=== PATIENT | male | born 1950 | race Caucasian/White ===

== ENCOUNTER 2019-10-15 14:00 | Inpatient (IN) | payer MEDICARE, SELFPAY ==
[2019-10-15 14:09] VITALS: BP 132/76; PULSE 80; RESP 16; TEMP 39.3; O2SAT 97; BMI 30.4
--- NOTE | 2019-10-15 14:50 | ECG_ITS ---
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 Measurements Intervals [place] Rate: 94 P: 52 SC: 162 QRS: 21 QRSD: 100 T: 34 QT: 334 QTc: 418 Interpretive Statements SINUS RHYTHM WITH OCCASIONAL VENTRICULAR PREMATURE COMPLEXES No previous ECG available for comparison Electronically Signed On 10-15-2019 19:33:24 CDT by Derek Casillas M.D. [email or web address]
--- NOTE | 2019-10-15 14:50 | XRR_ITS ---
PROCEDURE INFORMATION: Exam: XR Chest, 1 View Exam date and time: 10/15/2019 3:26 PM Age: 68 years old Clinical indication: Chest pain; Type not specified TECHNIQUE: Imaging protocol: XR of the chest Views: 1 view. COMPARISON: No relevant prior studies available. FINDINGS: Lungs: Unremarkable. No consolidation. Pleural space: Unremarkable. No pleural effusion. No pneumothorax. Heart/Mediastinum: Unremarkable. No cardiomegaly. Bones/joints: Unremarkable. XR/XR chest 1V portable [id number] IMPRESSION: No acute findings.
[2019-10-15 15:12] LABS: Basophils % 0.2 %; Hemoglobin 12.9 g/dL (11.7-16.6); Lymphocytes # 0.2 10^3/uL (0.8-4.8); Lymphocytes % 4.1 %; Mean Corpuscular HGB Conc 33.9 g/dL (30.0-36.0); Mean Corpuscular Hemoglobin 31.5 pg (28.0-34.0); Mean Corpuscular Volume 92.9 fL (80-94); Monocytes # 0.1 10^3/uL (0.2-0.9); Neutrophils # 4.6 10^3/uL (1.8-7.7); Neutrophils % 93.5 %; Nucleated Red Blood Cells % 0 %; Platelet Count 150 10^3/cmm (130-400); Red Blood Count 4.09 10^6/uL (4.1-5.3); White Blood Count 4.9 10^3/uL (4.0-10.0)
[2019-10-15] MEDS: acetaminophen 325 mg Tablet 650 MG PO (15:24)
[2019-10-15 15:29] LABS: Alanine Aminotransferase 45 U/L (0-41); Albumin Level 4.5 g/dL (3.5-5.2); Alkaline Phosphatase 53 IU/L (40-130); Anion Gap 19.1 (5-19); Aspartate Amino Transferase 35 U/L (0-40); Blood Urea Nitrogen 25 mg/dL (8-23); Calcium 9.5 mg/dL (8.5-10.5); Carbon Dioxide 22 mmol/L (22-29); Chloride 99 mmol/L (98-107); Creatine Phosphokinase 240 U/L (39-308); Globulin 2.6 g/dL (1.3-4.6); Glomerular Filtration Rate 46.8 mL/min (90-130); Glucose 141 mg/dL (65-115); Lipase 22 U/L (13-60); Osmolality Calculated 281 mOsm/kg (285-295); Potassium 4.1 mmol/L (3.5-5.1); Sodium 136 mmol/L (136-145); Total Bilirubin 0.8 mg/dL (0.15-1.2); Total Protein 7.1 g/dL (6.6-8.7)
[2019-10-15 15:31] LABS: Troponin(5th) Baseline 11 ng/L (0-15)
[2019-10-15 15:35] LABS: D Dimer 1.88 ug/mIFEU (0-0.59)
[2019-10-15] MEDS: sodium chloride 0.9% 1,000 ML 999 ML IV ×2 (15:42→23:28)
--- NOTE | 2019-10-15 16:50 | ECG_ITS ---
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 Measurements Intervals [place] Rate: 54 P: 44 MN: 165 QRS: 20 QRSD: 102 T: 22 QT: 417 QTc: 395 Interpretive Statements SINUS BRADYCARDIA Compared to ECG 10/15/2019 14:06:01 Sinus rhythm no longer present Ventricular premature complex(es) no longer present Electronically Signed On 10-15-2019 19:34:19 CDT by Derek Casillas M.D. [id number]
--- NOTE | 2019-10-15 17:09 | CTR_ITS ---
PROCEDURE INFORMATION: Exam: CT Angiography Chest With Contrast Exam date and time: 10/15/2019 5:30 PM Age: 68 years old Clinical indication: Shortness of breath and other: Over heated; Prior surgery; Surgery type: Stents; Additional info: Fever, SOB TECHNIQUE: Imaging protocol: Computed tomographic angiography of the chest with intravenous contrast. 3D rendering: MIP and/or 3D reconstructed images were created by the technologist. Radiation optimization: All CT scans at this facility use at least one of these dose optimization techniques: automated exposure control; mA and/or kV adjustment per patient size (includes targeted exams where dose is matched to clinical indication); or iterative reconstruction. Contrast material: VISI 320; Contrast volume: 95 ml; Contrast route: INTRAVENOUS (IV); COMPARISON: CR XR chest 1V portable [id number] 10/15/2019 3:13 PM RADIATION DOSE METRICS: Total DLP (mGy-cm): 629.79 FINDINGS: Pulmonary arteries: Normal. No pulmonary emboli. Aorta: No aortic aneurysm. No aortic dissection. Other veins: Small amount of air within periphery of left hepatic lobe, possibly within distal portal vein branches (series 2, axial image 385 [address] of abdomen and pelvis recommended for further evaluation. Lungs: Unremarkable. No consolidation. No masses. Pleural space: Unremarkable. No pneumothorax. No pleural effusion. Heart: Unremarkable. No cardiomegaly. No pericardial effusion. Lymph nodes: Unremarkable. No enlarged lymph nodes. Liver: Partially imaged 5-6 cm lobulated solid mass in or along undersurface of left hepatic lobe worrisome for primary or secondary malignancy (series 2, axial image 486 through 561). Bones/joints: Unremarkable. No acute fracture. Soft tissues: Unremarkable. CT/CT angio chest [facility] [id number] IMPRESSION: 1.) No acute process evident in the chest. 2.) Partially imaged 5-6 cm lobulated solid mass in or along undersurface of left hepatic lobe worrisome for primary or secondary malignancy (series 2, axial image 486 through 561). 3.) Small amount of air within periphery of left hepatic lobe, possibly within distal portal vein branches (series 2, axial image [address] of abdomen and pelvis recommended for further evaluation. Radiation Dose CTDIVOL = (mGy): DLP = 629.79 (mGy-cm)
[2019-10-15 17:25] LABS: Troponin 5 2HR 9.65 ng/L (0-15)
[2019-10-15 17:35] LABS: Troponin 5 2HR Delta -1.35 ABS# (0-10)
[2019-10-15] MEDS: iodixanol 320 mg/mL 100mL Btl IV (17:47)
--- NOTE | 2019-10-15 18:43 | W.ED.CHESTPA ---
HPI - Chest Pain General: Chief Complaint: Chest Pain Stated Complaint: cp Time Seen by Provider: 10/15/19 14:34 Source: patient and family Mode of arrival: ambulatory Limitations: no limitations History of Present Illness: HPI narrative: Patient presents to the emergency department because he thinks he may have had a heat stroke. Patient states that they have been moving houses and he has been working outside for the last few days. About 2 days ago he started to have some nausea and gradually worsened until he felt really sick today. He has been having some chills but he has not checked his temperature to see if he has a fever. He also developed some chest pain. Because he felt sick he came to the emergency department for evaluation. On arrival he had a fever of about 102.7 ?F He felt very sick before he came to the hospital but when I evaluated him he said the chest pain had resolved spontaneously. complaint: chest pain Associated symptoms: Reports fever(s) and nausea; Deny dyspnea or palpitations Review of Systems General: Reports: 10 or more systems reviewed and unremarkable except in HPI and below Const: Reports: fever(s), chills, body aches and malaise Eyes: Denies: change in vision or blurry vision ENMT: Denies: throat pain, enlarged tonsils, odynophagia, hoarseness, mouth pain or swelling of lips/tongue Card: Reports: chest pain; Denies: palpitations, irregular heart rhythm, edema or swelling of feet/ankles Resp: Denies: dyspnea, productive cough or non-productive cough GI: Reports: nausea : Denies: flank pain, dysuria, urinary frequency, urinary urgency or urinary hesitancy Musc: Denies: neck pain, back pain or extremity swelling Skin/Breast: Denies: rash, pruritus or erythema Neuro: Denies: headache(s), numbness in extremities or weakness in extremities Endo: Denies: polyuria, polydipsia or tired all the time PFSH ED PFSH: Medical History Abnormal colonoscopy Aortic valve stenosis Mild aortic stenosis Cervical radiculopathy due to degenerative joint disease of spine Coronary artery disease Dyslipidemia Gout Heatstroke Hypertension Nicotine dependence Rectal bleeding Sinus bradycardia Syncope Surgical History H/O cardiac catheterization Dimension of right coronary artery 2007 H/O hemorrhoidectomy Family History Denies family history of Diabetes Family history of premature coronary artery disease Social History Smoking and tobacco status: current every day smoker cigarettes [ Other cigarette details: [id number] smoking history ] Alcohol intake: never Substance/Drug Use: never Household members: spouse Housing: House Physical Exam Const: COMMON NORMALS: no acute distress, average body habitus, patient oriented x3, no limitations, healthy appearing, alert and well nourished HENMT: COMMON NORMALS: normocephalic, atraumatic and moist oral mucous membranes HEAD & SCALP: normocephalic and atraumatic Neck/C-Spine: COMMON NORMALS: no meningeal signs and no JVD Resp: COMMON NORMALS: normal respiratory effort, No retractions, No use of accessory muscles, clear to auscultation bilaterally and percussion normal AUSCULTATION: clear to auscultation bilaterally PERCUSSION: percussion normal Cardio: COMMON NORMALS: no JVD, regular rate, regular rhythm, S1 normal heart sound present, S2 normal heart sound present, No gallops present (Cardio), No clicks present (Cardio), No murmurs present (Cardio), No rub (Cardio) and Peripheral pulses 2+ throughout RATE: regular rate RHYTHM: regular rhythm HEART SOUNDS: S1 normal heart sound present and S2 normal heart sound present PERIPHERAL PULSES: Peripheral pulses 2+ throughout GI: COMMON NORMALS: Normal to inspection, nondistended, normoactive bowel sounds present, Soft to palpation, non-tender, No hepatosplenomegaly present, no masses and no bruits PALPATION: Yes Soft to palpation and Yes No hepatosplenomegaly present : COMMON NORMALS: Yes no CVA tenderness BLADDER/KIDNEY EXAM: Yes no CVA tenderness Back/Pelvis: COMMON NORMALS: no CVA tenderness Extremity: COMMON NORMALS: normal to inspection, full ROM, capillary refill normal, no calf tenderness and no pedal edema Neuro: COMMON NORMALS: patient oriented x3 SENSORIUM/ORIENTATION: Yes alert MENINGEAL SIGNS: Yes no meningeal signs Skin: COMMON NORMALS: no rashes or lesions noted, no wounds, turgor normal, no jaundice, no petechiae and no mottling GENERAL SKIN EXAM: no rashes or lesions noted and turgor normal Course Reevaluation(s): Reevaluation #1: Discussed his lab and imaging findings with him. Labs currently unremarkable, CTA of his chest negative for acute chest findings, however there are concerns for a liver mass which could be possibly malignant. I therefore discussed obtaining a CT scan of his abdomen and pelvis and he was in agreement with doing it today. He states he feels so much better since he got the IV fluids. Time: 18:43 Consultations: Consultation #1: Discussed patient with Dr. Flores, , hospitalist he kindly accepted the patient to his service Time: 20:05 Consultation #2: Dr. Orantes, general surgeon. Patient does not have any illness that needs surgical intervention. He needs to be managed medically Time: 20:20 Vital Signs: Vital signs: Vital Signs Temperature 102.7 F H 10/15/19 14:09 Pulse Rate 80 10/15/19 14:09 Respiratory Rate 16 10/15/19 14:09 Blood Pressure 132/76 10/15/19 14:09 Pulse Oximetry 97 10/15/19 14:09 MDM - Chest Pain MDM Narrative: Medical decision making narrative: 68-year-old gentleman who presents to the emergency department with complaints that he may have had a heat stroke. Evaluation in the emergency department shows he has significantly elevated d-dimer, negative cardiac work-up, but has signs of diverticulitis and possible mesenteric vein thrombophlebitis. He also has a large liver mass. Patient is admitted to the hospital for further evaluation and work-up. His symptoms are worrisome and do not all fit into one particular profile. Therefore needs further work-up. Medical Records: Attestation: I reviewed the patient's medical records. Lab Data: Attestation: I reviewed the patient's lab results. Labs: Lab Results 10/15/19 10/15/19 10/15/19 Range/Units 15:00 15:00 15:00 WBC 4.9 (4.0-10.0) 10^3/ uL RBC 4.09 L (4.1-5.3) 10^6/u L Hgb 12.9 (11.7-16.6) g/dL Hct 38.0 L (42.0-52.0) % MCV 92.9 (80-94) fL MCH 31.5 (28.0-34.0) pg MCHC 33.9 (30.0-36.0) g/dL RDW 12.0 L (12.1-15.1) % Plt Count 150 (130-400) 10^3/c mm MPV 10.0 (7.4-10.4) fL Neut % (Auto) 93.5 % Lymph % (Auto) 4.1 % [place] % (Auto) 2.0 % Eos % (Auto) 0.0 % Baso % (Auto) 0.2 % Neut # (Auto) 4.6 (1.8-7.7) 10^3/u L Lymph # (Auto) 0.2 L (0.8-4.8) 10^3/u L [place] # (Auto) 0.1 L (0.2-0.9) 10^3/u L Eos # (Auto) 0.0 (0.0-0.8) 10^3/u L Baso # (Auto) 0.0 (0.0-0.1) 10^3/u L Nucleated RBC % (a uto) 0 % Nucleated RBCs # 0.0 /100WBC D-Dimer 1.88 H (0-0.59) ug/mIFE U Sodium 136 (136-145) mmol/L Potassium 4.1 (3.5-5.1) mmol/L Chloride 99 (98-107) mmol/L Carbon Dioxide 22 (22-29) mmol/L Anion Gap 19.1 H (5-19) BUN 25 H (8-23) mg/dL Creatinine 1.5 H (0.7-1.2) mg/dL GFR Calculation 46.8 L (90-130) mL/min Glucose 141 H (65-115) mg/dL Calculated Osmolal ity 281 L (285-295) mOsm/k g Lactate (0.5-2.2) mmol/L Calcium 9.5 (8.5-10.5) mg/dL Total Bilirubin 0.8 (0.15-1.2) mg/dL AST 35 (0-40) U/L ALT 45 H (0-41) U/L Alkaline Phosphata se 53 (40-130) IU/L Creatine Kinase 240 (39-308) U/L Troponin T Baselin e (0-15) ng/L Troponin T 120 Min little shell tribe (0-15) ng/L Delta Troponin T (0-10) ABS# C-Reactive Protein 85.0 H (0.0-4.9) mg/L Total Protein 7.1 (6.6-8.7) g/dL Albumin 4.5 (3.5-5.2) g/dL Globulin 2.6 (1.3-4.6) g/dL Lipase 22 (13-60) U/L 10/15/19 10/15/19 10/15/19 Range/Units 15:00 15:00 16:55 WBC (4.0-10.0) 10^3/ uL RBC (4.1-5.3) 10^6/u L Hgb (11.7-16.6) g/dL Hct (42.0-52.0) % MCV (80-94) fL MCH (28.0-34.0) pg MCHC (30.0-36.0) g/dL RDW (12.1-15.1) % Plt Count (130-400) 10^3/c mm MPV (7.4-10.4) fL Neut % (Auto) % Lymph % (Auto) % [place] % (Auto) % Eos % (Auto) % Baso % (Auto) % Neut # (Auto) (1.8-7.7) 10^3/u L Lymph # (Auto) (0.8-4.8) 10^3/u L [place] # (Auto) (0.2-0.9) 10^3/u L Eos # (Auto) (0.0-0.8) 10^3/u L Baso # (Auto) (0.0-0.1) 10^3/u L Nucleated RBC % (a uto) % Nucleated RBCs # /100WBC D-Dimer (0-0.59) ug/mIFE U Sodium (136-145) mmol/L Potassium (3.5-5.1) mmol/L Chloride (98-107) mmol/L Carbon Dioxide (22-29) mmol/L Anion Gap (5-19) BUN (8-23) mg/dL Creatinine (0.7-1.2) mg/dL GFR Calculation (90-130) mL/min Glucose (65-115) mg/dL Calculated Osmolal ity (285-295) mOsm/k g Lactate 1.0 (0.5-2.2) mmol/L Calcium (8.5-10.5) mg/dL Total Bilirubin (0.15-1.2) mg/dL AST (0-40) U/L ALT (0-41) U/L Alkaline Phosphata se (40-130) IU/L Creatine Kinase (39-308) U/L Troponin T Baselin e 11 (0-15) ng/L Troponin T 120 Min little shell tribe 9.65 (0-15) ng/L Delta Troponin T -1.35 L (0-10) ABS# C-Reactive Protein (0.0-4.9) mg/L Total Protein (6.6-8.7) g/dL Albumin (3.5-5.2) g/dL Globulin (1.3-4.6) g/dL Lipase (13-60) U/L Imaging Data^: CT Abd/Pel: Radiologist's impression: [place] [address] CT Scan Report Signed with Addenda Patient: Los Perez #: [id number] : 3Acct#:[id number] Age/Sex: 68 / MADM Date: 10/15/19 Loc: ERRoom/Bed: Attending Dr: Ordering Provider/Ordering MD: Shauna Oviedo MD, [facility] [place] Date of Service: 10/15/19 Procedure(s): CT abdomen pelvis wo con [id number] Accession Number(s): [id number] Report Number: [id number]/CT abdomen pelvis wo con [id number] Addendum created at 7:[address] findings discussed with Dr. Oviedo via phone conference at 7:50 p.m.. Findings were understood and acknowledged. Radiation Dose CTDIVOL = (mGy): DLP = 1122.88 (mGy-cm) Addendum Dictated By: Devante Burrows MD Addendum Signed By: Devante Burrows MDSigned Date/Time:10/15/191952 Addendum Cosigned By: PROCEDURE INFORMATION: Exam: CT Abdomen And Pelvis Without Contrast Exam date and time: 10/15/2019 6:43 PM Age: 68 years old Clinical indication: Abnormal findings; Abnormal radiologic finding of the abdomen; Radiologic exam and body structure: Mass on liver; Additional info: Liver mass TECHNIQUE: Imaging protocol: Computed tomography of the abdomen and pelvis without contrast. Radiation optimization: All CT scans at this facility use at least one of these dose optimization techniques: automated exposure control; mA and/or kV adjustment per patient size (includes targeted exams where dose is matched to clinical indication); or iterative reconstruction. COMPARISON: No relevant prior studies available. RADIATION DOSE METRICS: Total DLP (mGy-cm): 1122.88 FINDINGS: Liver: Small amount of air within superior aspect of left hepatic lobe. Peripheral branching appearance would suggest a small amount of portal venous air/gas. There may be a small gas bubble within the inferior mesenteric vein (series 601, coronal image 33). 8.7 x 6.6 x 5.7 cm lobulated solid mass arising off inferior aspect of left hepatic lobe worrisome for primary or secondary hepatic neoplasm. Gallbladder and bile ducts: Normal. No calcified stones. No ductal dilation. Pancreas: Normal. No ductal dilation. Spleen: Normal. No splenomegaly. Adrenals: Normal. No mass. Kidneys and ureters: Normal. No hydronephrosis. Stomach and bowel: Mild sigmoid colon diverticulosis changes. Possible area of associated proximal sigmoid colon wall thickening with overlying pericolonic and mesenteric fat stranding/haziness suggesting mild acute diverticulitis. Small 2-3 mm adjacent extraluminal air collection suggesting small micro perforation (series 2, axial image 60 through 64). Portal venous air may be the result of intra-abdominal infection/acute sigmoid diverticulitis. Inferior mesenteric vein septic thrombophlebitis with gas secondary to acute diverticulitis not excluded. Finally, underlying sigmoid colon ischemia not absolutely excluded. Appendix: No evidence of appendicitis. Intraperitoneal space: See Stomach and bowel finding. Vasculature: See liver above. Moderate aortoiliac and branch vessel atherosclerotic calcification. Lymph nodes: Unremarkable. No enlarged lymph nodes. Bladder: Mild bladder wall thickening/trabeculation, appears chronic. Reproductive: Mildly enlarged prostate. Bones/joints: L5-S1 degenerative disc disease, chronic. Soft tissues: Unremarkable. CT/CT abdomen pelvis wo con [id number] IMPRESSION: 1.) Mild sigmoid colon diverticulosis changes. Possible area of associated proximal sigmoid colon wall thickening with overlying pericolonic and mesenteric fat stranding/haziness suggesting mild acute diverticulitis. Small 2-3 mm adjacent extraluminal air collection suggesting small micro perforation (series 2, axial image 60 through 64). 2.) Probable small amount of intrahepatic peripheral portal venous gas and possible small gas bubble in the inferior mesenteric vein. Portal venous air may be the result of intra-abdominal infection/acute sigmoid diverticulitis. Inferior mesenteric vein septic thrombophlebitis with gas secondary to acute diverticulitis not excluded. Finally, underlying sigmoid colon ischemia not absolutely excluded. 3.)8.7 x 6.6 x 5.7 cm lobulated solid mass arising off inferior aspect of left hepatic lobe worrisome for primary or secondary hepatic neoplasm. Radiation Dose CTDIVOL = (mGy): DLP = 1122.88 (mGy-cm) Dictated By:Devante Burrows MD Signed By:Devante Burrows MDSigned Date/Time:10/15/191945 DD/ 44 CTA Chest: Radiologist's impression: [place] [address] CT Scan Report Signed Patient: [place] Perez #: [id number] : 3Acct#:[id number] Age/Sex: 68 / MADM Date: 10/15/19 Loc: ERRoom/Bed: Attending Dr: Ordering Provider/Ordering MD: Shauna Oviedo MD, [facility] [place] Date of Service: 10/15/19 Procedure(s): CT angio chest PE protcl [id number] Accession Number(s): [id number] Report Number: [id number] PROCEDURE INFORMATION: Exam: CT Angiography Chest With Contrast Exam date and time: 10/15/2019 5:30 PM Age: 68 years old Clinical indication: Shortness of breath and other: Over heated; Prior surgery; Surgery type: Stents; Additional info: Fever, SOB TECHNIQUE: Imaging protocol: Computed tomographic angiography of the chest with intravenous contrast. 3D rendering: MIP and/or 3D reconstructed images were created by the technologist. Radiation optimization: All CT scans at this facility use at least one of these dose optimization techniques: automated exposure control; mA and/or kV adjustment per patient size (includes targeted exams where dose is matched to clinical indication); or iterative reconstruction. Contrast material: VISI 320; Contrast volume: 95 ml; Contrast route: INTRAVENOUS (IV); COMPARISON: CR XR chest 1V portable [id number] 10/15/2019 3:13 PM RADIATION DOSE METRICS: Total DLP (mGy-cm): 629.79 FINDINGS: Pulmonary arteries: Normal. No pulmonary emboli. Aorta: No aortic aneurysm. No aortic dissection. Other veins: Small amount of air within periphery of left hepatic lobe, possibly within distal portal vein branches (series 2, axial image [address] of abdomen and pelvis recommended for further evaluation. Lungs: Unremarkable. No consolidation. No masses. Pleural space: Unremarkable. No pneumothorax. No pleural effusion. Heart: Unremarkable. No cardiomegaly. No pericardial effusion. Lymph nodes: Unremarkable. No enlarged lymph nodes. Liver: Partially imaged 5-6 cm lobulated solid mass in or along undersurface of left hepatic lobe worrisome for primary or secondary malignancy (series 2, axial image 486 through 561). Bones/joints: Unremarkable. No acute fracture. Soft tissues: Unremarkable. CT/CT angio chest PE protcl [id number] IMPRESSION: 1.) No acute process evident in the chest. 2.) Partially imaged 5-6 cm lobulated solid mass in or along undersurface of left hepatic lobe worrisome for primary or secondary malignancy (series 2, axial image 486 through 561). 3.) Small amount of air within periphery of left hepatic lobe, possibly within distal portal vein branches (series 2, axial image [address] of abdomen and pelvis recommended for further evaluation. Radiation Dose CTDIVOL = (mGy): DLP = 629.79 (mGy-cm) Dictated By:Devante Burrows MD Signed By:Devante Burrowsigned Date/Time:10/15/191829 DD/ 28 CXR: Radiologist's impression: [address] [address] XRay Report Signed Patient: [place] Perez #: [id number] : 3Acct#:[id number] Age/Sex: 68 / MADM Date: 10/15/19 Loc: ERRoo/Bed: Attending Dr: Ordering Provider/Ordering MD: hSauna Oviedo MD, [facility] [place] Date of Service: 10/15/19 Procedure(s): XR chest 1V portable [id number] Accession Number(s): [id number] Report Number: [id number] PROCEDURE INFORMATION: Exam: XR Chest, 1 View Exam date and time: 10/15/2019 3:26 PM Age: 68 years old Clinical indication: Chest pain; Type not specified TECHNIQUE: Imaging protocol: XR of the chest Views: 1 view. COMPARISON: No relevant prior studies available. FINDINGS: Lungs: Unremarkable. No consolidation. Pleural space: Unremarkable. No pleural effusion. No pneumothorax. Heart/Mediastinum: Unremarkable. No cardiomegaly. Bones/joints: Unremarkable. XR/XR chest 1V portable [id number] IMPRESSION: No acute findings. Dictated By:Devante Burrows MD Signed By:Devante Burrows MDSigned Date/Time:10/15/19 1556 DD/ 1555 US: Radiologist's impression: [address] [address] Ultrasound Report Signed Patient: Los Perez #: [id number] : 3At#:[id number] Age/Sex: 68 / MADM Date: 10/15/19 Loc: [facility]/Bed: 278-[address]: Derek Flores MD Ordering Provider/Ordering MD: Shauna Oviedo MD, [facility] [place] Date of Service: 10/15/19 Procedure(s): US liver [id number] Accession Number(s): [id number] Report Number: [id number] PROCEDURE INFORMATION: Exam: US Duplex Artery or Vein of the Abdominal and/or Reproductive Organs, Limited Liver Exam date and time: 10/15/2019 8:48 PM Age: 68 years old Clinical indication: Abnormal findings; Abnormal radiologic finding of the abdomen; Radiologic exam and body structure: CT; Additional info: ? Portal vein thrombosis TECHNIQUE: Imaging protocol: Real-time duplex ultrasound scan of the arterial or venous flow with color Doppler flow and spectral waveform analysis with image documentation. Limited Duplex exam focused on the liver and portal venous system. Duplex images were received to evaluate vascular conditions. COMPARISON: CT abdomen pelvis wo con [id number] 10/15/2019 6:42 PM FINDINGS: Portal Venous System: Patent. Normal waveforms. Normal hepatopetal (towards the liver) flow in the main portal vein and right and left branches. IMPRESSION: Patent portal vein. PROCEDURE INFORMATION: Exam: US Abdomen, Limited; Right Upper Quadrant Exam date and time: 10/15/2019 8:48 PM Age: 68 years old Clinical indication: Abnormal findings; Abnormal radiologic finding of the abdomen; Radiologic exam and body structure: CT; Additional info: ? Portal vein thrombosis TECHNIQUE: Imaging protocol: US abdomen. Real time ultrasound with image documentation. Limited exam focused on the right upper quadrant. COMPARISON: CT abdomen pelvis wo con [id number] 10/15/2019 6:42 PM FINDINGS: Liver: There is an ill-defined relatively echogenic mass exophytic from the inferior aspect of the left lobe of the liver. There are at least 2 echogenic circumscribed nodules in the left lobe of the liver measuring up to 2.9 cm diameter . Gallbladder: The gallbladder is normal. There are no stones. There is no wall thickening or pericholecystic fluid. Common bile duct: The common bile duct is nondilated measuring 4 mm. Pancreas: Not clearly visible Right kidney: The right kidney is unremarkable. Cortical thickness and echotexture is normal. There is no hydronephrosis. No visible stones. Portal venous: The main, right and left portal vein are patent and demonstrate normal hepatopetal flow. US/US liver [id number] IMPRESSION: 1. Patent portal vein. 2. Nonspecific liver mass. Possible benign or malignant neoplasm. Consider follow-up liver MRI. 3. Echogenic liver nodules in the left lobe suggesting benign hemangiomas. 4. Normal gallbladder and bile ducts. 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
--- NOTE | 2019-10-15 20:06 | P.HP_ITS ---
Providers/Chief Complaint Primary Care Provider: Tahir Cruz MD Chief Complaint: cp History of Present Illness Jett Perez is a 68 year old male who carries history of coronary disease status post 2 stents without any history of hepatitis, alcohol abuse, liver cirrhosis came in with chief complaint of lethargy and fatigue along fever. Patient is stating that he is in the midst of moving to a new home, he is extremely active for his age, he has done this moving on his own, lately he has been working outside quite a lot, on Monday he got really tired, for next 24 to 36 hours he did not do much and rested in his bed, today he started feeling nauseous, and felt constricting pain below his rib cage, it felt like a belt constricting him, he did experience 2 episodes of emesis, he did not experience any diarrhea. He is endorsing night sweats, recent weight loss. Today he experienced chills for about 2 hours and he decided to come to the ED for further evaluation. In the emergency department his temperature was 102.7, he was not septic at all, considering high d-dimer he received imaging of his chest and abdomen which revealed mild diverticulitis with portal venous gas with concern for septic thrombophlebitis, liver mass was detected, he was given therapeutic dose of Lovenox for possible portal vein thrombosis, I requested ultrasound with Doppler which did not reveal portal vein occlusion, I have requested hepatitis panel, alpha-fetoprotein. Review of Systems Const: Reports: fever(s), chills, body aches, change in appetite, change in weight, fatigue, malaise and night sweats Eyes: Denies: change in vision ENMT: Denies: throat pain Card: Denies: chest pain Resp: Denies: dyspnea GI: Reports: abdominal pain, nausea, vomiting and heartburn; Denies: diarrhea, constipation or melena : Denies: flank pain Musc: Denies: neck pain Skin/Breast: Denies: rash or pruritus Neuro: Denies: headache(s) Psych: Denies: anxiety Endo: Denies: polyuria [place]/Lymph: Denies: easy bruising All/Imm: Denies: urticaria Medications/Allergies Home Medications Medication Instructions Recorded Confirmed Last Taken Type lovastatin 40 mg tablet 80 mg PO DAILY #180 tab 06/06/19 10/15/19 10/14/19 Rx carvedilol 25 mg tablet 25 mg PO BID #60 tab 06/26/19 10/15/19 10/15/19 Rx fenofibrate nanocrystallized 48 mg 48 mg PO DAILY #90 tab 09/12/19 10/15/19 10/14/19 Rx tablet ibuprofen 800 mg PO PRN 10/15/19 10/15/19 10/15/19 08:00 History lisinopril 40 mg PO DAILY 10/15/19 10/15/19 10/15/19 History multivitamin [Multiple Vitamins] 1 tab PO DAILY 10/15/19 10/15/19 10/15/19 History Allergies Allergy/AdvReac Type Severity Reaction Status Date / Time No Known Allergies Allergy Verified 10/15/19 15:14 PFSH Acute PFSH: Medical History Abnormal colonoscopy Aortic valve stenosis Mild aortic stenosis Cervical radiculopathy due to degenerative joint disease of spine Coronary artery disease Dyslipidemia Gout Heatstroke Hypertension Nicotine dependence Rectal bleeding Sinus bradycardia Syncope Surgical History H/O cardiac catheterization Dimension of right coronary artery 2007 H/O hemorrhoidectomy Family History Denies family history of Diabetes Family history of premature coronary artery disease Social History Smoking and tobacco status: current every day smoker cigarettes [ Other cigarette details: [id number] smoking history ] Alcohol intake: never Substance/Drug Use: never Household members: spouse Housing: House Vitals/I&O/Wt Last Vital Signs Temp 102.7 F H 10/15/19 14:09 Pulse 80 10/15/19 14:09 Resp 16 10/15/19 14:09 BP 132/76 10/15/19 14:09 Pulse Ox 97 10/15/19 14:09 Weight last 48 hrs Weight 90.718 kg Physical Exam Narrative: EXAM NARRATIVE: Head to toe examination Very pleasant gentleman S1, S2 no signs of heart failure Right upper quadrant no tenderness, no signs of liver failure Distended abdomen without any signs of peritonitis, abdomen soft distended with obesity, bowel sound present, soft abdomen EOMI, PERRLA Appropriate mood and affect Appears dehydrated Flushed skin sunburned area Lungs are clear to auscultation No signs of decompensated liver cirrhosis Not complaining of active chest No active respiratory Multiple skin laceration on his extremities Data : 10/15/19 15:00 10/15/19 15:00 A&P Assessment and plan (1) Liver mass: Status: Acute (2) Pneumobilia: Status: Acute (3) Hepatic hemangioma: Status: Acute (4) Sigmoid diverticulitis: Status: Acute Additional A&P Information Febrile without any signs of sepsis due to diverticulitis Acute sigmoid diverticulitis on CT abdomen with portal venous gas without any active signs of mesenteric ischemia No leukocytosis or high lactic acid, abdomen is benign He was given therapeutic dose of Lovenox because of recent incidental finding of liver mass and portal venous gas with concern for thrombophlebitis I requested liver ultrasound with Doppler which revealed patent portal vein, I would not repeat second dose of Lovenox at this point, I believe his findings on CT abdomen are secondary to acute diverticulitis with microperforations consistent with pneumobilia, I will keep him on clear liquid diet, cover him with Zosyn case was discussed with Dr. Orantes, no acute indication for general surgery at this point Hepatic hemangioma Consistent with a liver mass He will need colonoscopy on outpatient settings and would benefit from MRI of his liver down the road Patient is endorsing night sweats and weight loss, Would follow-up with alpha-fetoprotein level and hepatitis panel, I do not have a specific reason of high d-dimer, patient is saturating well, sinus rhythm heart rate 80, no signs of pneumonia or PE, he will need close follow-up for hepatic mass Coronary disease: No acute decompensation Hold carvedilol and lisinopril for now Full code DVT prophylaxis received therapeutic Lovenox in the ER 1 dose Clear liquid diet, advance as tolerated Attestations Medical Necessity Statement*: Anticipating discharge in less than 48 hours currently need overnight monitoring for acute diverticulitis with pneumobilia and work-up for hepatic mass Time Spent in Patient Care: (>than 50% of time spent in counselling and/or direct pt care on unit) . 60 minutes Coding Level of Care Code Acute Handkerchief Folder for Chg Fwd Diagnoses Liver mass R16.0 Pneumobilia K83.8 Hepatic hemangioma D18.03 Sigmoid diverticulitis K57.32
--- NOTE | 2019-10-15 20:06 | USR_ITS ---
PROCEDURE INFORMATION: Exam: US Duplex Artery or Vein of the Abdominal and/or Reproductive Organs, Limited Liver Exam date and time: 10/15/2019 8:48 PM Age: 68 years old Clinical indication: Abnormal findings; Abnormal radiologic finding of the abdomen; Radiologic exam and body structure: CT; Additional info: ? Portal vein thrombosis TECHNIQUE: Imaging protocol: Real-time duplex ultrasound scan of the arterial or venous flow with color Doppler flow and spectral waveform analysis with image documentation. Limited Duplex exam focused on the liver and portal venous system. Duplex images were received to evaluate vascular conditions. COMPARISON: CT abdomen pelvis con [id number] 10/15/2019 6:42 PM FINDINGS: Portal Venous System: Patent. Normal waveforms. Normal hepatopetal (towards the liver) flow in the main portal vein and right and left branches. IMPRESSION: Patent portal vein. PROCEDURE INFORMATION: Exam: US Abdomen, Limited; Right Upper Quadrant Exam date and time: 10/15/2019 8:48 PM Age: 68 years old Clinical indication: Abnormal findings; Abnormal radiologic finding of the abdomen; Radiologic exam and body structure: CT; Additional info: ? Portal vein thrombosis TECHNIQUE: Imaging protocol: US abdomen. Real time ultrasound with image documentation. Limited exam focused on the right upper quadrant. COMPARISON: CT abdomen pelvis con [id number] 10/15/2019 6:42 PM FINDINGS: Liver: There is an ill-defined relatively echogenic mass exophytic from the inferior aspect of the left lobe of the liver. There are at least 2 echogenic circumscribed nodules in the left lobe of the liver measuring up to 2.9 cm diameter . Gallbladder: The gallbladder is normal. There are no stones. There is no wall thickening or pericholecystic fluid. Common bile duct: The common bile duct is nondilated measuring 4 mm. Pancreas: Not clearly visible Right kidney: The right kidney is unremarkable. Cortical thickness and echotexture is normal. There is no hydronephrosis. No visible stones. Portal venous: The main, right and left portal vein are patent and demonstrate normal hepatopetal flow. US/US liver [id number] IMPRESSION: 1. Patent portal vein. 2. Nonspecific liver mass. Possible benign or malignant neoplasm. Consider follow-up liver MRI. 3. Echogenic liver nodules in the left lobe suggesting benign hemangiomas. 4. Normal gallbladder and bile ducts.
--- NOTE | 2019-10-15 20:50 | ECG_ITS ---
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 Measurements Intervals [place] Rate: 49 P: 44 MA: 175 QRS: 16 QRSD: 107 T: 29 QT: 430 QTc: 391 Interpretive Statements SINUS BRADYCARDIA Compared to ECG 10/15/2019 18:22:45 No significant changes Electronically Signed On 10-16-2019 17:45:37 CDT by Yuniel Ying M.D. [id number]
[2019-10-15 21:39] VITALS: BP 152/78; PULSE 54; RESP 16; TEMP 37; O2SAT 94
[2019-10-15 21:53] LABS: Troponin 5 6HR 8.47 ng/L (0-15)
[2019-10-15] MEDS: ciprofloxacin 400 MG/200 ML PREMIX 200 MG IV (22:08)
[2019-10-15 22:09] LABS: Troponin 5 6HR Delta -2.53 ng/L (0-12)
[2019-10-15] MEDS: enoxaparin 100 mg/mL Syringe 90 MG SUBCUT (22:15)
[2019-10-15] MEDS: metroNIDAZOLE IV 500 MG/100 ML PREMIX 100 MG IV (23:29)
[2019-10-15 23:52] VITALS: BP 152/78; PULSE 52; RESP 16; TEMP 37; O2SAT 94
[2019-10-16] VITALS (9 sets, daily range): BP systolic 116–162; BP diastolic 57–75; PULSE 49–100; RESP 14–20; TEMP 35.6–38.3; O2SAT 92–95
[2019-10-16] MEDS: sodium chloride 0.9% 1,000 ML 75 ML IV ×2 (00:19→16:15)
[2019-10-16] MEDS: piperacillin-tazobactam 3.375 GM in sodium chloride 0.9% (plus) 50 ML IV ×3 (00:19→16:13)
[2019-10-16 03:00] LABS: Tumor Marker Alpha Fetoprotein 1.7 ng/mL (0-8.3)
[2019-10-16 03:06] LABS: Hepatitis A Antibody IgM Non-Reactive (Nonreactive); Hepatitis B Core AB, Total Non-Reactive (Nonreactive); Hepatitis B Surface AB 3.5 (0-8.5); Hepatitis B Surface Antigen Non-Reactive (Nonreactive); Hepatitis C Virus Antibody Non-Reactive (Nonreactive)
[2019-10-16 05:15] LABS: Basophils % 0.1 %; Eosinophils % 0.1 %; Hematocrit 36.2 % (42.0-52.0); Hemoglobin 11.9 g/dL (11.7-16.6); Lymphocytes # 0.6 10^3/uL (0.8-4.8); Mean Corpuscular HGB Conc 32.9 g/dL (30.0-36.0); Mean Corpuscular Hemoglobin 31.2 pg (28.0-34.0); Mean Platelet Volume 10.5 fL (7.4-10.4); Monocytes # 0.8 10^3/uL (0.2-0.9); Monocytes % 10.4 %; Neutrophils # 6.3 10^3/uL (1.8-7.7); Neutrophils % 81.1 %; Nucleated Red Blood Cells % 0 %; Platelet Count 150 10^3/cmm (130-400); Red Blood Count 3.81 10^6/uL (4.1-5.3); Red Cell Distribution Width 12.1 % (12.1-15.1); White Blood Count 7.7 10^3/uL (4.0-10.0)
[2019-10-16 05:34] LABS: Alanine Aminotransferase 67 U/L (0-41); Alkaline Phosphatase 54 IU/L (40-130); Anion Gap 15.8 (5-19); Aspartate Amino Transferase 55 U/L (0-40); Blood Urea Nitrogen 19 mg/dL (8-23); Calcium 8.7 mg/dL (8.5-10.5); Carbon Dioxide 23 mmol/L (22-29); Chloride 106 mmol/L (98-107); Globulin 2.6 g/dL (1.3-4.6); Glucose 115 mg/dL (65-115); Osmolality Calculated 289 mOsm/kg (285-295); Potassium 3.8 mmol/L (3.5-5.1); Sodium 141 mmol/L (136-145); Total Bilirubin 0.7 mg/dL (0.15-1.2); Total Protein 6.6 g/dL (6.6-8.7)
--- NOTE | 2019-10-16 09:40 | PC.NURSE ---
pt came out of bathroom from shower had chills and shaking with sob, pain in lower back, n/v. temp 100.9 oral bp 162/70. reports having black loose stools
[2019-10-16] MEDS: acetaminophen 325 mg Tablet 650 MG PO ×2 (09:54→20:21)
--- NOTE | 2019-10-16 09:56 | PC.CHAP ---
Pastoral Care Encounter/Spiritual Assessment Type of Contact [] Declined industrial economist visit [] Patient/Family/Request visit [] Outpatient visit [] Follow-up visit [] Physician referral [] Code/Alert [x] Routine visit [] Staff referral [] Actively dying [] Patient sleeping [] Family support [] [] Out of room [] Palliative care [] [] Receiving care in room [] Pre-surgical visit [] Trauma [] Long length of stay [] ICU visit [] Other: Relational/Emotional Strength [] Patient feels connected with others/family/visitors/staff [] Distress [] Loneliness/isolation [] Abandonment Spirituality of Patient [] Person of Magali [] Attends Bahai of their Magali [] Believes in Prayer [] Reads Bible or Shinto materials [] There are Spiritual issues to be addressed Induction Heating Equipment Setter Interventions [] Prayer [] Active listening [] Non-anxious presence [] Spiritual/emotional support [] Crisis/trauma care [] Spiritual counseling [] Bereavement support [] Provided bereavement packet [] Provided Bible/devotional materials [] Provided toy/stuffed animal, coloring book to patient or family member [] Provided Communion [] Anointing/Dietrich [] Salvation [x] Completed spiritual assessment [] Other: Impact on Illness or Injury [] Angry [] Fearful [] Anxious [] Often cries [] Exhaustion [] Unable to work [] Unable to attend hinduism [] Unable to walk/stand [] Unable to read [] Unable to drive [] Unable to eat/drink [] Unable to sleep [] Unable to be with family [] Patient intubated [] Other: Summary Didn't have time with patient. Patient in a lot of pain, and asking nurse for doctor. Time spent with patient
[2019-10-16 10:02] LABS: Lipase 23 U/L (13-60)
--- NOTE | 2019-10-16 10:31 | P.PN_ITS ---
Subjective Subjective: Interval history: Overnight labs and H&P reviewed. Patient spiking fever this morning 100.9 associated with fever and chills. Blood culture sent this morning. He also is having vomiting and nausea. He had one episode of black-colored stool last night. Hb stable. Medications: Reviewed: Yes Vitals/I&O/Wt Last Vital Signs Temp 100.9 F H 10/16/19 09:37 Pulse 72 10/16/19 08:01 Resp 20 H 10/16/19 09:37 BP 162/70 10/16/19 09:37 Pulse Ox 92 10/16/19 08:01 10/15/19 10/16/19 10/16/19 22:59 06:59 14:59 Intake Total 50 / 50 310 / 310 Balance 50 / 50 310 / 310 Weight last 48 hrs Weight 90.718 kg Physical Exam Narrative: EXAM NARRATIVE: GEN: Awake, alert and oriented, no acute distress CVS: S1S2 N RS: CTA B/L Abd: Soft, nt/nd , bs+ ASSOCIATE PROFESSOR OF GEOLOGY: no focal neuro deficits EXT: No cyanosis, clubbing or edema Data : 10/16/19 04:31 10/16/19 04:31 A&P Assessment and plan (1) Sepsis: Status: Acute Qualifiers: Sepsis type: sepsis due to unspecified organism Sepsis acute organ dysfunction status: with acute organ dysfunction Severe sepsis acute organ dysfunction type: acute renal failure Severe sepsis shock status: without septic shock Acute renal failure type: unspecified Qualified Code(s): A41.9 - Sepsis, unspecified organism; R65.20 - Severe sepsis without septic shock; N17.9 - Acute kidney failure, unspecified (2) Sigmoid diverticulitis: Status: Acute (3) IMANI (acute kidney injury): Status: Acute (4) Pylephlebitis: Status: Acute (5) Liver mass: Status: Acute Additional A&P Information #Sepsis sepsis: Meets criteria this morning by way of tachypnea, fever, IMANI and obvious source of infection by way of diverticulitis with microperforation and pylephlebitis Sent stat blood cultures and lactate. Continue Zosyn empirically. C. difficile PCR if ongoing diarrhea #Sigmoid colon diverticulitis with 2 to 3 mm adjacent extraluminal air collection suggesting of small microperforation. Small amount of intrahepatic peripheral portal venous gas and small gas bubble in the inferior mesenteric vein, likely as a result of pylephlebitis as a complication of diverticulitis. Inferior mesenteric vein septic thrombophlebitis could not be entirely excluded on the CAT scan. However this was a CT without contrast. Liver ultrasound did not show any portal vein thrombosis. Called [facility] access line for GI consult. awaiting callback #Incidentally noted liver mass 8.7 x 6.6 x 5.7 arising from the inferior aspect of the left hepatic lobe. Concern for possible low-grade malignancy malignancy. On ultrasound and CT imaging, radiologically appears less likely to be hepatic abscess. Hold off on biopsy for now. #Transaminitis: May be a result of sepsis versus dehydration. Acute hepatitis panel is negative. Will trend. Normal gallbladder and bile ducts on ultrasound and CT. #History of CAD: Resume carvedilol. Hold lisinopril for now since patient had IMANI with creatinine 1.5 yesterday. Need to confirm if patient is taking aspirin at home. Last echocardiogram from January 2018 with normal LVEF and systolic function with EF of 60%. No regional wall motion abnormalities. #Hypertension: Holding lisinopril for now will use amlodipine if needed DVT ppx: lovenox Full code Change to inpatient status Attestations Medical Necessity Statement*: Ongoing need for IV antibiotics in view of acute diverticulitis with septic pylephlebitis Coding Level of Care Code Acute End User Support Specialist for [facility] Fw Diagnoses Sepsis A41.9; R65.20; N17.9 Sepsis type: sepsis due to unspecified organism Sepsis acute organ dysfunction status: with acute organ dysfunction Severe sepsis acute organ dysfunction type: acute renal failure Severe sepsis shock status: without septic shock Acute renal failure type: unspecified Sigmoid diverticulitis K57.32 IMANI (acute kidney injury) N17.9 Pylephlebitis K75.1 Liver mass R16.0
[2019-10-16 10:58] LABS: INR 1.09 (0.8-1.2)
[2019-10-16 13:00] LABS: Lyme AB Screen <0.90 index
[2019-10-16] MEDS: carvedilol 25 mg Tablet PO (16:13)
--- NOTE | 2019-10-16 17:50 | PC.RESP ---
Smoking Cessation information and a schedule of classes to patient.
[2019-10-16] MEDS: ondansetron 2 mg/ML SDV 2 mL 4 MG IVP (20:27)
[2019-10-16] MEDS: enoxaparin 40 mg/0.4 mL Syringe SUBCUT (22:49)
[2019-10-17] VITALS (8 sets, daily range): BP systolic 127–168; BP diastolic 65–80; PULSE 47–74; RESP 18–20; TEMP 36.9–37.6; O2SAT 90–97
[2019-10-17] MEDS: piperacillin-tazobactam 3.375 GM in sodium chloride 0.9% (plus) 50 ML IV ×4 (00:11→23:42)
[2019-10-17] MEDS: sodium chloride 0.9% 1,000 ML 75 ML IV ×2 (04:36→19:25)
[2019-10-17 05:56] LABS: Basophils % 0.1 %; Eosinophils % 0.3 %; Hematocrit 32.1 % (42.0-52.0); Hemoglobin 10.8 g/dL (11.7-16.6); Lymphocytes # 0.7 10^3/uL (0.8-4.8); Lymphocytes % 9.6 %; Mean Corpuscular HGB Conc 33.6 g/dL (30.0-36.0); Mean Corpuscular Volume 95.3 fL (80-94); Mean Platelet Volume 10.4 fL (7.4-10.4); Monocytes # 1.1 10^3/uL (0.2-0.9); Monocytes % 15.1 %; Neutrophils # 5.3 10^3/uL (1.8-7.7); Neutrophils % 74.5 %; Nucleated Red Blood Cells % 0 %; Platelet Count 150 10^3/cmm (130-400); Red Blood Count 3.37 10^6/uL (4.1-5.3); Red Cell Distribution Width 12.4 % (12.1-15.1); White Blood Count 7.2 10^3/uL (4.0-10.0)
[2019-10-17 06:33] LABS: Alanine Aminotransferase 105 U/L (0-41); Albumin Level 3.5 g/dL (3.5-5.2); Alkaline Phosphatase 60 IU/L (40-130); Anion Gap 14.7 (5-19); Aspartate Amino Transferase 69 U/L (0-40); Blood Urea Nitrogen 20 mg/dL (8-23); Calcium 8.5 mg/dL (8.5-10.5); Carbon Dioxide 22 mmol/L (22-29); Chloride 108 mmol/L (98-107); Globulin 2.5 g/dL (1.3-4.6); Glomerular Filtration Rate 74.8 mL/min (90-130); Glucose 118 mg/dL (65-115); Osmolality Calculated 290 mOsm/kg (285-295); Potassium 3.7 mmol/L (3.5-5.1); Sodium 141 mmol/L (136-145); Total Bilirubin 0.7 mg/dL (0.15-1.2)
--- NOTE | 2019-10-17 11:10 | P.PN_ITS ---
Subjective Subjective: Interval history: Afebrile over the last 24 hours. Hemodynamically remained stable. Currently remains n.p.o. Blood culture negative to date. LFTs trending up. Alkaline phosphatase and T bili remain normal. Diarrhea still with 2-3 episodes. Nausea vomiting resolved now. Kidney function remained stable. Medications: Reviewed: Yes Vitals/I&O/Wt Last Vital Signs Temp 98.9 F 10/17/19 08:00 Pulse 50 L 10/17/19 08:00 Resp 18 10/17/19 08:00 BP 163/73 10/17/19 08:00 Pulse Ox 94 10/17/19 08:00 10/16/19 10/17/19 10/17/19 22:59 06:59 14:59 Intake Total 50 / 1410 976.25 / 2386.25 240 / 240 Balance 50 / 1410 976.25 / 2386.25 240 / 240 Weight last 48 hrs Weight 90.718 kg Physical Exam Narrative: EXAM NARRATIVE: GEN: Awake, alert and oriented, no acute distress CVS: S1S2 N RS: CTA B/L Abd: Soft, nt/nd , bs+ SENIOR SAS PROGRAMMER: no focal neuro deficits EXT: No cyanosis, clubbing or edema Data : 10/17/19 05:30 10/17/19 05:30 Micro: Microbiology 10/16/19 11:45 Blood Culture - Preliminary Blood SPECIMEN COLLECTED 10/16/19 11:42 Blood Culture - Preliminary Blood SPECIMEN COLLECTED A&P Assessment and plan (1) Sepsis: Status: Acute Qualifiers: Acute renal failure type: unspecified Sepsis acute organ dysfunction status: with acute organ dysfunction Sepsis type: sepsis due to unspecified organism Severe sepsis acute organ dysfunction type: acute renal failure Severe sepsis shock status: without septic shock Qualified Code(s): A41.9 - Sepsis, unspecified organism; R65.20 - Severe sepsis without septic shock; N17.9 - Acute kidney failure, unspecified (2) Sigmoid diverticulitis: Status: Acute (3) IMANI (acute kidney injury): Status: Acute (4) Pylephlebitis: Status: Acute (5) Liver mass: Status: Acute Additional A&P Information #Sepsis sepsis: Meets criteria this morning by way of tachypnea, fever, IMANI and obvious source of infection by way of diverticulitis with microperforation and pylephlebitis Continue Zosyn empirically. C. difficile PCR if ongoing diarrhea #Sigmoid colon diverticulitis with 2 to 3 mm adjacent extraluminal air collection suggesting of small microperforation. Small amount of intrahepatic peripheral portal venous gas and small gas bubble in the inferior mesenteric vein, likely as a result of pylephlebitis as a complication of diverticulitis. Inferior mesenteric vein septic thrombophlebitis could not be entirely excluded on the CAT scan. However this was a CT without contrast. Liver ultrasound did not show any portal vein thrombosis. Called [facility] access line for GI consult, recommended antibiotic treatment and close follow-up with surgical services. Consult placed with Dr. Orantes. Will obtain follow-up CAT scan today. #Incidentally noted liver mass 8.7 x 6.6 x 5.7 arising from the inferior aspect of the left hepatic lobe. Concern for possible low-grade malignancy malignancy. On ultrasound and CT imaging, radiologically appears less likely to be hepatic abscess. Hold off on biopsy for now. #Transaminitis: May be a result of sepsis versus dehydration. Acute hepatitis panel is negative. Normal gallbladder and bile ducts on ultrasound and CT. Gi devyn findings of pneumobilia and increasing liver enzymes, will repeat a CAT scan with contrast to evaluate for any developing thrombosis within the portal system. #History of CAD: Per discussion with patient's , patient is not on any aspirin at home. He just takes ibuprofen daily. It is unclear why. We will hold off on starting aspirin at this time given that hemoglobin is slowly drifting down and patient is currently n.p.o. We will check occult blood first. Reduce carvedilol dosing to 12.5 mg p.o. twice daily as patient bradycardic to heart rate of 38 during sleep. He is asymptomatic with this. Holding lisinopril given IMANI. Last echocardiogram from January 2018 with normal LVEF and systolic function with EF of 60%. No regional wall motion abnormalities. #Hypertension: Holding lisinopril, start amlodipine 5mg qd DVT ppx: lovenox Full code NPO except meds Attestations Medical Necessity Statement*: Ongoing need for IV antibiotics, monitoring for pneumobilia and evaluation for development of portal vein thrombosis. Coding Level of Care Code Acute Tool Specialist for [facility] Fwd Diagnoses Sepsis A41.9; R65.20; N17.9 Acute renal failure type: unspecified Sepsis acute organ dysfunction status: with acute organ dysfunction Sepsis type: sepsis due to unspecified organism Severe sepsis acute organ dysfunction type: acute renal failure Severe sepsis shock status: without septic shock Sigmoid diverticulitis K57.32 IMANI (acute kidney injury) N17.9 Pylephlebitis K75.1 Liver mass R16.0
--- NOTE | 2019-10-17 11:18 | CTR_ITS ---
PROCEDURE INFORMATION: Exam: CT Abdomen And Pelvis With Contrast Exam date and time: 10/17/2019 12:49 PM Age: 68 years old Clinical indication: Condition or disease; Other: Portal vein and inferior mesenteric vein thrombu; Prior surgery; Surgery type: Stents; Additional info: Evalute for portal vein and inferior mesenteric vein thrombu TECHNIQUE: Imaging protocol: Computed tomography of the abdomen and pelvis with intravenous contrast. Radiation optimization: All CT scans at this facility use at least one of these dose optimization techniques: automated exposure control; mA and/or kV adjustment per patient size (includes targeted exams where dose is matched to clinical indication); or iterative reconstruction. Contrast material: OMNIPAQUE; Contrast volume: 95 ml; Contrast route: INTRAVENOUS (IV); COMPARISON: CT abdomen pelvis wo con [id number] 10/15/2019 6:42 PM RADIATION DOSE METRICS: Total DLP (mGy-cm): 1213.73 FINDINGS: Liver: 9.5 x 6.9 x 6.9 cm lobulated solid mass in or along undersurface of left hepatic lobe worrisome for primary or secondary neoplasm. Gallbladder and bile ducts: See Intraperitoneal space finding. Pancreas: Normal. No ductal dilation. Spleen: Normal. No splenomegaly. Adrenals: 1 cm rounded low-density left adrenal nodule. Possible left adrenal adenoma although given the liver mass, metastatic disease not absolutely excluded. Kidneys and ureters: Normal. No hydronephrosis. Stomach and bowel: Subjacent sigmoid colon mesentery continues to have a hazy appearance which could be related to IMV thrombophlebitis and/or mild acute sigmoid diverticulitis. Mild sigmoid colon diverticulosis changes. Again small area of acute diverticulitis not excluded (axial image 58 through 63). Appendix: No evidence of appendicitis. Intraperitoneal space: Minimal focal ascites along right lateral aspect liver. Similar low-density around gallbladder may represent generalized gallbladder wall thickening versus additional pericholecystic fluid/ascites. Vasculature: Portions of the inferior mesenteric vein show diminished enhancement so possible IMV thrombosis (series 2, axial image 41 and series 602, coronal image 35). Otherwise, patent portal, splenic and superior mesenteric veins. Moderate aortoiliac and branch vessel atherosclerotic calcification. Focal calcified plaque with probable stenosis mid to distal SMA (series 2, axial image 31 and 32). Lymph nodes: Unremarkable. No enlarged lymph nodes. Bladder: Mild generalized urinary bladder wall thickening, appears chronic. Reproductive: Mildly enlarged prostate. Bones/joints: Unremarkable. No acute fracture. Soft tissues: Unremarkable. 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 2.) Mild sigmoid colon diverticulosis changes and small focus of acute diverticulitis not excluded. Overlying sigmoid colon mesentery continues to have a hazy appearance which could be related to IMV thrombophlebitis and/or acute diverticulitis. 3.) Continued several cm mass/neoplasm along undersurface of left hepatic lobe. 4.) Minimal ascites about liver. Pericholecystic fluid versus gallbladder wall thickening. 1 cm left adrenal nodule. COMMENTS: Consistent with the [employer]'s Incidental Findings Committee white paper (J Am Rosie Radiol 2017): Any incidental adrenal lesion less than or equal to 1.0 cm is likely benign. No follow-up imaging is recommended for these lesions per consensus recommendations based on imaging criteria. Further lab evaluation could be pursued if warranted based on clinical findings. Radiation Dose CTDIVOL = (mGy): DLP = 1213.73 (mGy-cm)
[2019-10-17] MEDS: iohexol 300 mg/mL 100 mL Btl IV (13:16)
[2019-10-17 13:27] LABS: D Dimer 1.03 ug/mIFEU (0-0.59)
[2019-10-17] MEDS: amlodipine 5 mg Tablet PO (14:48)
[2019-10-17] MEDS: acetaminophen 325 mg Tablet 650 MG PO (14:48)
--- NOTE | 2019-10-17 16:57 | PM.CONSULT ---
Providers/Reason For Consult Consulting Physican/Specialty*: General Surgery Jasmeet Orantes MD Reason for Consult*: Complicated sigmoid diverticulitis. Attending Physician: Fina Barrientos MD Primary Care Provider: Tahir Cruz MD History of Present Illness History of Present Illness Jett Perez is a 68 year old male admitted 2 days ago for sigmoid diverticulitis with associated pylephlebitis. The patient says he has been very active recently, putting on a new roof, moving to a different house, etc. He thought that 4 days ago (2 days prior to admission) he had just overdone it and had some symptoms of heatstroke including nausea but only 2 episodes of vomiting, as well as diffuse body aches. He denies hematemesis. He says he spent 2 full days in bed with nausea. He then tried to get up and out of the house. He developed rigors associated with uncontrollable shaking and chills. He came to the hospital and a CAT scan showed changes consistent with sigmoid diverticulitis with probable associated pylephlebitis, in addition to a possible hepatic mass. Interestingly, he says when he came into the hospital he had developed some upper abdominal pain and rubs his hand across his epigastrium. He says all of the chills and pain essentially went away, though, before he was even admitted. He did admit to some ongoing nausea, however. The patient was eventually admitted and was started on broad-spectrum antibiotics. Since admission, the patient says he feels much better. He did have one episode of chilling yesterday, but none since. He denies any pain currently. He has been afebrile for over 24 hours. His white blood cell count is normal, although surprisingly it was actually normal on presentation. He has had loose stool ever since he started feeling poorly 4 days ago but no evidence of hematochezia. He says he is now getting his appetite back and his nausea has essentially resolved, as well. The patient had a follow-up CAT scan done today which appeared to show improvement in the level of the patient's inflammation, but also revealed possible evidence of inferior mesenteric vein thrombosis. I was actually contacted when the patient was admitted through the emergency department, but understood the emergency room physician to say that the patient did NOT have evidence of diverticulitis on his CAT scan. He has clearly improved despite having some minimal evidence of colonic perforation associated with his diverticulitis; because of his mesenteric/portal vein changes, I was asked today to follow the patient while he was hospitalized. Review of Systems General: Reports: 10 or more systems reviewed and unremarkable except in HPI and below Const: Reports: fever(s) and other (rigors) Resp: Reports: productive cough (occasionally) GI: Reports: abdominal pain, nausea, vomiting and diarrhea; Denies: hematemesis or hematochezia Musc: Reports: neck pain Neuro: Reports: headache(s) Meds/Allergies Home Medications and Allergies Home Medications Medication Instructions Recorded Confirmed Last Taken Type lovastatin 40 mg tablet 80 mg PO DAILY #180 tab 06/06/19 10/15/19 10/14/19 Rx carvedilol 25 mg tablet 25 mg PO BID #60 tab 06/26/19 10/15/19 10/15/19 Rx fenofibrate nanocrystallized 48 mg 48 mg PO DAILY #90 tab 09/12/19 10/15/19 10/14/19 Rx tablet ibuprofen 800 mg PO PRN 10/15/19 10/15/19 10/15/19 08:00 History lisinopril 40 mg PO DAILY 10/15/19 10/15/19 10/15/19 History multivitamin [Multiple Vitamins] 1 tab PO DAILY 10/15/19 10/15/19 10/15/19 History Allergies Allergy/AdvReac Type Severity Reaction Status Date / Time No Known Allergies Allergy Verified 10/15/19 15:14 Current Medications Current Medications Generic Name Dose Route Start Last Admin Trade Name Freq PRN Reason Stop Dose Admin Acetaminophen 650 mg 10/16/19 10:13 10/17/19 14:48 Tylenol PO 650 mg Q8H PRN Administration only if fever Amlodipine Besylate 5 mg 10/17/19 11:25 10/17/19 14:48 Norvasc PO 5 mg DAILY AKBAR Administration Sodium Chloride 1,000 mls @ 75 mls/hr 10/15/19 23:58 10/17/19 04:36 Sodium Chloride 0.9% IV 75 mls/hr .[id number] AKBAR Administration Piperacillin Sod/Tazobactam 50 mls @ 12.5 mls/hr 10/16/19 16:00 10/17/19 10:14 Sod 3.375 gm/ Sodium Chloride IV 12.5 mls/hr Q8H AKBAR Administration Protocol Ondansetron HCl 4 mg 10/16/19 10:51 10/16/19 20:27 Zofran IVP 4 mg Q6H PRN Administration NAUSEA AND VOMITING PFSH Acute PFSH: Medical History (Updated 10/17/19 @ 18:14 by Jasmeet Orantes MD) Aortic valve stenosis Mild aortic stenosis Cervical radiculopathy due to degenerative joint disease of spine Chronic neck pain With associated headaches Coronary artery disease Dyslipidemia Gout Heatstroke History of colon polyps Hypertension Rectal bleeding Sinus bradycardia Syncope Surgical History (Updated 10/17/19 @ 18:14 by Jasmeet Orantes MD) Abnormal colonoscopy 2 adenomatous polyps 12/2014 H/O cardiac catheterization Dimension of right coronary artery 2007 Cardiac stent x2 H/O hemorrhoidectomy History of tonsillectomy Family History Denies family history of Diabetes Family history of premature coronary artery disease Social History (Updated 10/17/19 @ 18:04 by Jasmeet Orantes MD) Smoking and tobacco status: former smoker Quit status (tobacco): has quit using tobacco Year quit tobacco: Around 1994 Former quit date comment: [id number] history prior to that Alcohol intake: current Alcohol type: beer Alcohol use comment: 3 or 4 beers every other day or so Substance/Drug Use: never Household members: spouse Housing: House Vitals/I&O/Wt Last Vital Signs Temp 98.5 F 10/17/19 16:00 Pulse 47 L 10/17/19 16:00 Resp 18 10/17/19 16:00 BP 160/65 10/17/19 16:00 Pulse Ox 94 10/17/19 16:00 10/17/19 10/17/19 10/17/19 06:59 14:59 22:59 Intake Total 976.25 / 2386.25 240 / 240 Balance 976.25 / 2386.25 240 / 240 Physical Exam Narrative: EXAM NARRATIVE: The patient was encountered in his hospital room. He does not appear to be in any distress. The pupils are equal. No carotid bruits are heard. The lungs are clear anteriorly. The heart is regular. The abdomen is moderately obese but reveals good bowel sounds. The patient has some very mild right upper quadrant tenderness but Yost's sign is negative and I cannot really appreciate much in the way of lower abdominal tenderness at all. No obvious masses are palpated. The extremities reveal no edema. Neurologically the patient appears to be grossly intact. Data Micro: Micro: Microbiology 10/17/19 14:25 Occult Blood (FIT) - Final Stool 10/16/19 11:45 Blood Culture - Pr eliminary Blood NEGATIVE TO DAMARI E 10/16/19 11:42 Blood Culture - Pr eliminary Blood NEGATIVE TO DAMARI E Imaging^: CT Abd/Pel: Radiologist's impression: CT abdomen/pelvis 10/15/2019 iMPRESSION: 1.) Mild sigmoid colon diverticulosis changes. Possible area of associated proximal sigmoid colon wall thickening with overlying pericolonic and mesenteric fat stranding/haziness suggesting mild acute diverticulitis. Small 2-3 mm adjacent extraluminal air collection suggesting small micro perforation (series 2, axial image 60 through 64). 2.) Probable small amount of intrahepatic peripheral portal venous gas and possible small gas bubble in the inferior mesenteric vein. Portal venous air may be the result of intra-abdominal infection/acute sigmoid diverticulitis. Inferior mesenteric vein septic thrombophlebitis with gas secondary to acute diverticulitis not excluded. Finally, underlying sigmoid colon ischemia not absolutely excluded. 3.)8.7 x 6.6 x 5.7 cm lobulated solid mass arising off inferior aspect of left hepatic lobe worrisome for primary or secondary hepatic neoplasm. 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 2.) Mild sigmoid colon diverticulosis changes and small focus of acute diverticulitis not excluded. Overlying sigmoid colon mesentery continues to have a hazy appearance which could be related to IMV thrombophlebitis and/or acute diverticulitis. 3.) Continued several cm mass/neoplasm along undersurface of left hepatic lobe. 4.) Minimal ascites about liver. Pericholecystic fluid versus gallbladder wall thickening. 1 cm left adrenal nodule. COMMENTS: Consistent with the [employer]'s Incidental Findings Committee white paper (J Am Rosie Radiol 2017): Any incidental adrenal lesion less than or equal to 1.0 cm is likely benign. No follow-up imaging is recommended for these lesions per consensus recommendations based on imaging criteria. Further lab evaluation could be pursued if warranted based on clinical findings. US: Radiologist's impression: Liver ultrasound 10/15/2019 IMPRESSION: 1. Patent portal vein. 2. Nonspecific liver mass. Possible benign or malignant neoplasm. Consider follow-up liver MRI. 3. Echogenic liver nodules in the left lobe suggesting benign hemangiomas. 4. Normal gallbladder and bile ducts. A&P Assessment and plan (1) Perforation of sigmoid colon due to diverticulitis: To me, it appears the patient's inflammation has lessened on his serial CAT scans. He also appears to be doing very well clinically at the present time. We discussed diverticulitis in some detail. It would appear that this is for his first episode, although his symptoms were never very terribly impressive for lower abdominal discomfort during this episode. He does have a personal history of colon polyps on a colonoscopy 5 years ago. Another colonoscopy following resolution of his current problem could certainly be considered. Status: Acute (2) Pylephlebitis: Continue broad-spectrum antibiotics. I agree with some form of anticoagulation given his possible thrombosis. Status: Acute (3) Sepsis: Status: Acute Qualifiers: Acute renal failure type: unspecified Sepsis acute organ dysfunction status: with acute organ dysfunction Sepsis type: sepsis due to unspecified organism Severe sepsis acute organ dysfunction type: acute renal failure Severe sepsis shock status: without septic shock Qualified Code(s): A41.9 - Sepsis, unspecified organism; R65.20 - Severe sepsis without septic shock; N17.9 - Acute kidney failure, unspecified (4) Liver mass: Follow-up MRI has been suggested. Status: Acute Consult Attestations Medical Necessity Statement: See admitting service's notation. 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
[2019-10-17] MEDS: enoxaparin 100 mg/mL Syringe 90 MG SUBCUT (19:25)
[2019-10-17] MEDS: ondansetron 2 mg/ML SDV 2 mL 4 MG IVP (23:42)
[2019-10-18 01:15] VITALS: BP 155/79; PULSE 54; RESP 20; TEMP 37.7; O2SAT 91
[2019-10-18 04:00] VITALS: BP 163/79; PULSE 53; RESP 16; TEMP 37.6; O2SAT 91
[2019-10-18] MEDS: enoxaparin 100 mg/mL Syringe 90 MG SUBCUT ×2 (04:56→16:37)
[2019-10-18 05:43] LABS: Basophils % 0.1 %; Eosinophils % 0.2 %; Hemoglobin 10.6 g/dL (11.7-16.6); Lymphocytes % 11.6 %; Mean Corpuscular HGB Conc 34.2 g/dL (30.0-36.0); Mean Corpuscular Hemoglobin 32.1 pg (28.0-34.0); Mean Corpuscular Volume 93.9 fL (80-94); Mean Platelet Volume 10.4 fL (7.4-10.4); Monocytes # 1.2 10^3/uL (0.2-0.9); Monocytes % 14.6 %; Neutrophils # 6.1 10^3/uL (1.8-7.7); Neutrophils % 72.9 %; Nucleated Red Blood Cells % 0 %; Platelet Count 169 10^3/cmm (130-400); Red Cell Distribution Width 12.1 % (12.1-15.1); White Blood Count 8.4 10^3/uL (4.0-10.0)
[2019-10-18 06:06] LABS: Alanine Aminotransferase 116 U/L (0-41); Albumin Level 3.4 g/dL (3.5-5.2); Alkaline Phosphatase 70 IU/L (40-130); Anion Gap 14.5 (5-19); Aspartate Amino Transferase 63 U/L (0-40); Blood Urea Nitrogen 15 mg/dL (8-23); Calcium 8.2 mg/dL (8.5-10.5); Carbon Dioxide 23 mmol/L (22-29); Chloride 110 mmol/L (98-107); Globulin 2.6 g/dL (1.3-4.6); Glomerular Filtration Rate 74.5 mL/min (90-130); Glucose 124 mg/dL (65-115); Osmolality Calculated 296 mOsm/kg (285-295); Potassium 3.5 mmol/L (3.5-5.1); Sodium 144 mmol/L (136-145); Total Bilirubin 0.6 mg/dL (0.15-1.2)
[2019-10-18] MEDS: piperacillin-tazobactam 3.375 GM in sodium chloride 0.9% (plus) 50 ML IV ×2 (07:33→16:37)
[2019-10-18] MEDS: sodium chloride 0.9% 1,000 ML 75 ML IV (07:34)
[2019-10-18] MEDS: amlodipine 5 mg Tablet PO ×2 (07:34→16:37)
[2019-10-18] MEDS: acetaminophen 325 mg Tablet 650 MG PO ×2 (07:36→19:52)
--- NOTE | 2019-10-18 07:58 | PM.PN ---
Subjective Subjective: Interval history: Jett says he continues to feel well this morning. Unfortunately, he has to spend his birthday in the hospital. He continues to have some loose stool. He is aware that he ran some low-grade fevers last night, but did not have any symptoms from that. Vitals/I&O/Wt Last Vital Signs Temp 99.6 F 10/18/19 04:00 Pulse 53 L 10/18/19 04:00 Resp 16 10/18/19 04:00 BP 163/79 10/18/19 04:00 Pulse Ox 91 10/18/19 04:00 10/17/19 10/18/19 10/18/19 22:59 06:59 14:59 Intake Total 1000 / 1390 100 / 1390 911.25 / 911.25 Balance 1000 / 1390 100 / 1390 911.25 / 911.25 Physical Exam Narrative: EXAM NARRATIVE: The patient's abdomen remains very soft with minimal tenderness. Data : 10/18/19 05:18 10/18/19 05:18 Micro: Microbiology 10/17/19 14:25 C.difficile Toxin B Gene (PCR) - Final Stool Occult Blood (FIT) - Final 10/16/19 11:45 Blood Culture - Preliminary Blood NEGATIVE TO DATE 10/16/19 11:42 Blood Culture - Preliminary Blood NEGATIVE TO DATE A&P Assessment and plan (1) Perforation of sigmoid colon due to diverticulitis: The patient continues to feel well, but did run some low-grade fevers last night. He has never been very symptomatic with respect to abdominal symptoms during this entire episode. I made him aware that it makes it a little difficult for us to know when to discharge him from the hospital on oral antibiotics. For now, I recommended that he stay hospitalized and he seems understanding of that. Status: Acute (2) Pylephlebitis: Continue broad-spectrum antibiotics. I agree with some form of anticoagulation given his possible thrombosis. Status: Acute (3) Sepsis: Status: Acute Qualifiers: Sepsis type: sepsis due to unspecified organism Sepsis acute organ dysfunction status: with acute organ dysfunction Severe sepsis acute organ dysfunction type: acute renal failure Acute renal failure type: unspecified Severe sepsis shock status: without septic shock Qualified Code(s): A41.9 - Sepsis, unspecified organism; R65.20 - Severe sepsis without septic shock; N17.9 - Acute kidney failure, unspecified (4) Liver mass: Follow-up MRI has been suggested. Status: Acute Attestations Medical Necessity Statement*: See admitting service's notation. 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
[2019-10-18 08:00] VITALS: BP 173/79; PULSE 52; RESP 16; TEMP 37.3; O2SAT 93
[2019-10-18 12:00] VITALS: BP 162/80; PULSE 53; RESP 14; TEMP 37.2; O2SAT 96
--- NOTE | 2019-10-18 13:17 | DCPLANNER ---
Jett has an appointment on MondayOctober 20 at 9:30 for MRI that was scheduled today 10-18-19. All offices and [facility] building were closed for the holiday. Faxing face sheet to [employer] for a ride.
[2019-10-18 16:00] VITALS: BP 185/81; PULSE 55; RESP 16; TEMP 37.3; O2SAT 94
[2019-10-18] MEDS: ketorolac 30 mg/mL INJ 15 MG IVP (16:35)
[2019-10-18 17:00] LABS: RMSF IGG NOT DETECTED; RMSF IGM NOT DETECTED
--- NOTE | 2019-10-18 18:50 | PM.PN ---
Subjective Subjective: Interval history: Continues to have low-grade fever 99.2-99.6, though overall fever curve is improving. No further episodes of nausea or vomiting. He is improving. Patient was started on clear liquid diet today which he appears to be tolerating thus far. Blood pressure this evening noted to be 185/81. Amlodipine 5 mg given and also hydralazine added as needed. 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: no focal neuro deficits EXT: No cyanosis, clubbing or edema Data : 10/18/19 05:18 10/18/19 05:18 Micro: Microbiology 10/17/19 14:25 C.difficile Toxin B Gene (PCR) - Final Stool Occult Blood (FIT) - Final A&P Assessment and plan (1) Sepsis: Status: Acute Qualifiers: Sepsis type: sepsis due to unspecified organism Sepsis acute organ dysfunction status: with acute organ dysfunction Severe sepsis acute organ dysfunction type: acute renal failure Acute renal failure type: unspecified Severe sepsis shock status: without septic shock Qualified Code(s): A41.9 - Sepsis, unspecified organism; R65.20 - Severe sepsis without septic shock; N17.9 - Acute kidney failure, unspecified (2) Sigmoid diverticulitis: Status: Acute (3) IMANI (acute kidney injury): Status: Acute (4) Pylephlebitis: Status: Acute (5) Liver mass: Status: Acute Additional A&P Information #Sepsis sepsis: Meets criteria this morning by way of tachypnea, fever, IMANI and obvious source of infection by way of diverticulitis with microperforation and pylephlebitis Continue Zosyn empirically. C. difficile PCR negative check blood cx given low grade fever #Sigmoid colon diverticulitis with 2 to 3 mm adjacent extraluminal air collection suggesting of small microperforation. Small amount of intrahepatic peripheral portal venous gas and small gas bubble in the inferior mesenteric vein, likely as a result of pylephlebitis as a complication of diverticulitis. Inferior mesenteric vein septic thrombophlebitis could not be entirely excluded on the CAT scan. However this was a CT without contrast. Liver ultrasound did not show any portal vein thrombosis. Called [facility] access line for GI consult, recommended antibiotic treatment and close follow-up with surgical services. appreciate surgical consult clear liquid diet today #Incidentally noted liver mass 8.7 x 6.6 x 5.7 arising from the inferior aspect of the left hepatic lobe. Concern for possible low-grade malignancy malignancy. On ultrasound and CT imaging, radiologically appears less likely to be hepatic abscess. Hold off on biopsy for now. MR abdomen ordered #Transaminitis: May be a result of sepsis versus dehydration. Acute hepatitis panel is negative. Normal gallbladder and bile ducts on ultrasound and CT. Given findings of pneumobilia and increasing liver enzymes, CT repeated, findings as above. #History of CAD: Per discussion with patient's , patient is not on any aspirin at home. He just takes ibuprofen daily. It is unclear why. Will start ASA 81 when starts po intake. # sinus bradycardia. He is asymptomatic with this. Hold carvedilol # Holding lisinopril given IMANI. Last echocardiogram from January 2018 with normal LVEF and systolic function with EF of 60%. No regional wall motion abnormalities. 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
[2019-10-18 20:00] VITALS: BP 178/76; PULSE 58; RESP 17; TEMP 37.2; O2SAT 94
[2019-10-18 22:15] LABS: E. Chaffeensis AB IGG <1:64; E. Chaffeensis AB IGM <1:20
[2019-10-19] VITALS: BP 164/84; PULSE 52; RESP 17; TEMP 37.2; O2SAT 93
[2019-10-19] MEDS: piperacillin-tazobactam 3.375 GM in sodium chloride 0.9% (plus) 50 ML IV ×2 (00:12→08:13)
[2019-10-19] MEDS: sodium chloride 0.9% 1,000 ML 75 ML IV (03:28)
[2019-10-19 04:00] VITALS: BP 158/83; PULSE 54; RESP 18; TEMP 37.3; O2SAT 94
[2019-10-19] MEDS: enoxaparin 100 mg/mL Syringe 90 MG SUBCUT ×2 (05:48→17:42)
[2019-10-19 06:01] LABS: Basophils % 0.3 %; Eosinophils # 0.1 10^3/uL (0.0-0.8); Eosinophils % 1.9 %; Hematocrit 31.4 % (42.0-52.0); Hemoglobin 10.6 g/dL (11.7-16.6); Lymphocytes # 1.2 10^3/uL (0.8-4.8); Lymphocytes % 18.8 %; Mean Corpuscular HGB Conc 33.8 g/dL (30.0-36.0); Mean Corpuscular Hemoglobin 31.5 pg (28.0-34.0); Mean Corpuscular Volume 93.2 fL (80-94); Mean Platelet Volume 10.2 fL (7.4-10.4); Monocytes # 0.8 10^3/uL (0.2-0.9); Monocytes % 13.1 %; Neutrophils # 4.2 10^3/uL (1.8-7.7); Neutrophils % 65.4 %; Nucleated Red Blood Cells % 0 %; Platelet Count 193 10^3/cmm (130-400); Red Blood Count 3.37 10^6/uL (4.1-5.3); White Blood Count 6.4 10^3/uL (4.0-10.0)
[2019-10-19 06:14] LABS: Lactate (Lactic Acid level) 0.7 mmol/L (0.5-2.2)
[2019-10-19 06:15] LABS: Alanine Aminotransferase 147 U/L (0-41); Albumin Level 3.3 g/dL (3.5-5.2); Alkaline Phosphatase 70 IU/L (40-130); Anion Gap 13.2 (5-19); Aspartate Amino Transferase 77 U/L (0-40); Blood Urea Nitrogen 12 mg/dL (8-23); Calcium 8.2 mg/dL (8.5-10.5); Carbon Dioxide 23 mmol/L (22-29); Chloride 107 mmol/L (98-107); Globulin 2.7 g/dL (1.3-4.6); Glomerular Filtration Rate 84.2 mL/min (90-130); Glucose 112 mg/dL (65-115); Osmolality Calculated 287 mOsm/kg (285-295); Potassium 3.2 mmol/L (3.5-5.1); Sodium 140 mmol/L (136-145); Total Bilirubin 0.6 mg/dL (0.15-1.2)
--- NOTE | 2019-10-19 06:56 | PM.PN ---
Subjective Subjective: Interval history: The patient says he continues to feel well with respect to his abdomen. He did get a headache yesterday which eventually went away with some Tylenol. He continues to have some loose stool and he is passing flatus. He still does not have much of an appetite and says that the clear liquid diet is fine with him for now. Vitals/I&O/Wt Last Vital Signs Temp 99.1 F 10/19/19 04:00 Pulse 54 L 10/19/19 04:00 Resp 18 10/19/19 04:00 BP 158/83 10/19/19 04:00 Pulse Ox 94 10/19/19 04:00 10/18/19 10/18/19 10/19/19 14:59 22:59 06:59 Intake Total 1201.25 / 2251.25 1050 / 2251.25 Balance 1201.25 / 2251.25 1050 / 2251.25 Physical Exam Narrative: EXAM NARRATIVE: The patient's exam remains about the same. He has minimal scattered suprapubic/lower abdominal tenderness. The remainder of his abdomen is completely soft and nontender. Data : 10/19/19 05:29 10/19/19 05:29 Micro: Microbiology 10/19/19 05:29 Blood Culture - Preliminary Blood SPECIMEN COLLECTED 10/19/19 05:29 Blood Culture - Preliminary Blood SPECIMEN COLLECTED A&P Assessment and plan (1) Perforation of sigmoid colon due to diverticulitis: The patient still has some intermittent low-grade fevers but seems to be doing well clinically. I told him that it somewhat difficult to know when to discharge him, since his abdominal exam never has been reliable as to the severity of what is going on according to the imaging, etc. I am going to start the patient on some ciprofloxacin/metronidazole in preparation for eventual discharge. Status: Acute (2) Pylephlebitis: Status: Acute (3) Sepsis: Status: Acute Qualifiers: Sepsis type: sepsis due to unspecified organism Sepsis acute organ dysfunction status: with acute organ dysfunction Severe sepsis acute organ dysfunction type: acute renal failure Acute renal failure type: unspecified Severe sepsis shock status: without septic shock Qualified Code(s): A41.9 - Sepsis, unspecified organism; R65.20 - Severe sepsis without septic shock; N17.9 - Acute kidney failure, unspecified (4) Liver mass: Follow-up MRI has been suggested. Status: Acute Attestations Medical Necessity Statement*: See admitting service's notation. 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
[2019-10-19 08:00] VITALS: BP 168/83; PULSE 56; RESP 20; TEMP 36.8; O2SAT 96
[2019-10-19] MEDS: amlodipine 10 mg Tablet PO (08:13)
[2019-10-19] MEDS: ciprofloxacin 500 mg Tablet PO ×2 (08:14→17:42)
[2019-10-19] MEDS: metroNIDAZOLE 500 MG Tablet PO ×3 (08:14→21:00)
--- NOTE | 2019-10-19 11:12 | PC.SOCIAL ---
Pg 2 IMM Explained to pt Pg 2 IMM. Pt verbally understands. Provided pt a copy. Signed, dated, & timed a copy & placed in pt's chart.
[2019-10-19 12:00] VITALS: BP 167/77; PULSE 57; RESP 18; TEMP 36.6; O2SAT 96
--- NOTE | 2019-10-19 12:59 | USR_ITS ---
PROCEDURE INFORMATION: Exam: US Abdomen; Limited Exam date and time: 10/19/2019 2:01 PM Age: 69 years old Clinical indication: Abnormal findings; Abnormal radiologic finding of the abdomen; Radiologic exam and body structure: CT abdomen; Additional info: Follow up portal vein and imv thrombosis TECHNIQUE: Imaging protocol: US abdomen. Real time ultrasound with image documentation. Limited exam focused on the region of clinical interest. COMPARISON: [place] liver [id number] 10/15/2019 8:34 PM FINDINGS: Common bile duct: Normal caliber of the visualized common bile duct measuring 3 mm in diameter. Portal venous: Patency of the visualized portal, splenic, hepatic, and superior mesenteric veins. CT or MR venography can be performed for improved characterization if clinically indicated. Inferior vena cava: Unremarkable IVC. US/CV unlisted vascular [id number] IMPRESSION: Patency of the visualized portal, splenic, hepatic, and superior mesenteric veins. CT or MR venography can be performed for improved characterization if clinically indicated.
--- NOTE | 2019-10-19 13:00 | P.PN_ITS ---
Subjective Subjective: Interval history: BP continues to be systolic 150-160. tolerating liquid diet. Abx changed over to po. LFTs trended up, temp ~99F persisting. Liver function stable. nausea resolved. Medications: Reviewed: Yes Vitals/I&O/Wt Last Vital Signs Temp 97.8 F 10/19/19 12:00 Pulse 57 L 10/19/19 12:00 Resp 18 10/19/19 12:00 BP 167/77 10/19/19 12:00 Pulse Ox 96 10/19/19 12:00 10/18/19 10/19/19 10/19/19 22:59 06:59 14:59 Intake Total 1050 / 2251.25 50 / 2301.25 700 / 700 Output Total 500 / 500 Balance 1050 / 2251.25 50 / 2301.25 200 / 200 Physical Exam Narrative: EXAM NARRATIVE: GEN: Awake, alert and oriented, no acute distress CVS: S1S2 N RS: CTA B/L Abd: Soft, nt/nd , bs+ FASHION MODEL: no focal neuro deficits EXT: No cyanosis, clubbing or edema Data : 10/19/19 05:29 10/19/19 05:29 Micro: Microbiology 10/19/19 05:29 Blood Culture - Preliminary Blood SPECIMEN COLLECTED 10/19/19 05:29 Blood Culture - Preliminary Blood SPECIMEN COLLECTED A&P Assessment and plan (1) Sepsis: Status: Acute Qualifiers: Sepsis type: sepsis due to unspecified organism Sepsis acute organ dysfunction status: with acute organ dysfunction Severe sepsis acute organ dysfunction type: acute renal failure Acute renal failure type: unspecified Severe sepsis shock status: without septic shock Qualified Code(s): A41.9 - Sepsis, unspecified organism; R65.20 - Severe sepsis without septic shock; N17.9 - Acute kidney failure, unspecified (2) Sigmoid diverticulitis: Status: Acute (3) IMANI (acute kidney injury): Status: Acute (4) Pylephlebitis: Status: Acute (5) Liver mass: Status: Acute Additional A&P Information #Sepsis : Meets criteria by way of tachypnea, fever, IMANI and obvious source of infection by way of diverticulitis with microperforation and pylephlebitis Zosyn changed over to po cipro and flagyl to assess tolerability prior to discharge C. difficile PCR negative Blood cx negative to date #Sigmoid colon diverticulitis with 2 to 3 mm adjacent extraluminal air collection suggesting of small microperforation. Small amount of intrahepatic peripheral portal venous gas and small gas bubble in the inferior mesenteric vein, likely as a result of pylephlebitis as a complication of diverticulitis on initial CT. F/up CT with concern for developing IMV thrombosis. Called [facility] access line for GI consult, recommended antibiotic treatment and close follow-up with surgical services. appreciate surgical consult clear liquid diet to continue for today # inferior mesenteric vein thrombosis: Currently on a/c with full dose lovenox LFTs creeping up today, check US portal venous system to assess for any worsening Low grade temp may be related to ongoing thrombosis #Transaminitis: May be a result of sepsis . Acute hepatitis panel is negative. Normal gallbladder and bile ducts on ultrasound and CT. Given findings of pneumobilia and increasing liver enzymes, CT repeated, findings as above. will check US abdomen today #Incidentally noted liver mass 8.7 x 6.6 x 5.7 arising from the inferior aspect of the left hepatic lobe. Concern for possible low-grade malignancy malignancy. On ultrasound and CT imaging, radiologically appears less likely to be hepatic abscess. Hold off on biopsy for now. MR abdomen ordered, unlikely to be obtained over the weekend #History of CAD: Per discussion with patient's , patient is not on any aspirin at home. He just takes ibuprofen daily. It is unclear why. Will start ASA 81 when starts po intake. Last echocardiogram from January 2018 with normal LVEF and systolic function with EF of 60%. No regional wall motion abnormalities. # sinus bradycardia. He is asymptomatic with this. 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
[2019-10-19] MEDS: lisinopril 20 mg Tablet PO (14:21)
[2019-10-19 16:00] VITALS: BP 176/91; PULSE 55; RESP 20; TEMP 37.6; O2SAT 95
[2019-10-19] MEDS: hyDRALAzine 20 mg/mL INJ 1 mL 5 MG IVP (17:42)
[2019-10-19 19:03] VITALS: BP 167/75; PULSE 58; RESP 20; TEMP 37.2; O2SAT 95
[2019-10-20] VITALS (8 sets, daily range): BP systolic 128–164; BP diastolic 69–79; PULSE 54–63; RESP 16–20; TEMP 36.9–38.5; O2SAT 93–98
[2019-10-20] MEDS: acetaminophen 325 mg Tablet 650 MG PO (01:03)
[2019-10-20] MEDS: ketorolac 30 mg/mL INJ 15 MG IVP ×2 (01:24→18:29)
[2019-10-20] MEDS: ondansetron 2 mg/ML SDV 2 mL 4 MG IVP (01:25)
--- NOTE | 2019-10-20 01:49 | USCV_ITS ---
Jett Perez Age: 69 Gender: M : 1950 Exam Date: 10/20/2019 12:32 Ordering Phys: Derek Flores MD Technologist: Betty Moss Exam Location: [facility] [place]: PE HISTORY: Right lower extremity pain. PROCEDURES: Comparison: none available. Venous duplex imaging was performed in only the right lower extremity. The following venous structures were evaluated: common femoral vein, profunda vein, proximal portion of the greater saphenous vein, superficial femoral vein, and the popliteal vein. In addition, the posterior tibial and peroneal trunk were evaluated. Serial compression, augmentation maneuvers, and spectral Doppler flow evaluation were performed. FINDINGS: No evidence of DVT seen in any vessel visualized at this time. There is a cystic area in the right popliteal fossa, measuring 4.4 x 0.8 x 2.9 cm. The veins were found to be easily compressible with spontaneous blood flow. Non pulsatile flow pattern. CONCLUSIONS No evidence of DVT in the above-mentioned identifiable veins. 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
[2019-10-20 05:23] LABS: Basophils % 0.4 %; Eosinophils # 0.1 10^3/uL (0.0-0.8); Eosinophils % 0.7 %; Hematocrit 31.7 % (42.0-52.0); Hemoglobin 10.8 g/dL (11.7-16.6); Lymphocytes # 1.7 10^3/uL (0.8-4.8); Lymphocytes % 19.5 %; Mean Corpuscular HGB Conc 34.1 g/dL (30.0-36.0); Mean Corpuscular Hemoglobin 31.7 pg (28.0-34.0); Mean Platelet Volume 10.9 fL (7.4-10.4); Monocytes # 1.2 10^3/uL (0.2-0.9); Monocytes % 13.6 %; Neutrophils # 5.5 10^3/uL (1.8-7.7); Neutrophils % 64.7 %; Nucleated Red Blood Cells % 0 %; Platelet Count 245 10^3/cmm (130-400); Red Blood Count 3.41 10^6/uL (4.1-5.3); Red Cell Distribution Width 12.1 % (12.1-15.1); White Blood Count 8.5 10^3/uL (4.0-10.0)
[2019-10-20] MEDS: enoxaparin 100 mg/mL Syringe 90 MG SUBCUT ×2 (05:35→18:25)
[2019-10-20 06:06] LABS: Alanine Aminotransferase 134 U/L (0-41); Albumin Level 3.3 g/dL (3.5-5.2); Alkaline Phosphatase 70 IU/L (40-130); Anion Gap 12.4 (5-19); Aspartate Amino Transferase 53 U/L (0-40); Blood Urea Nitrogen 8 mg/dL (8-23); Calcium 8.6 mg/dL (8.5-10.5); Carbon Dioxide 28 mmol/L (22-29); Chloride 104 mmol/L (98-107); Globulin 2.5 g/dL (1.3-4.6); Glomerular Filtration Rate 74.5 mL/min (90-130); Glucose 112 mg/dL (65-115); Osmolality Calculated 289 mOsm/kg (285-295); Potassium 3.4 mmol/L (3.5-5.1); Sodium 141 mmol/L (136-145); Total Bilirubin 0.6 mg/dL (0.15-1.2); Total Protein 5.8 g/dL (6.6-8.7)
[2019-10-20 07:18] LABS: Slide Review Slide Review Perform
[2019-10-20] MEDS: metroNIDAZOLE 500 MG Tablet PO ×2 (08:34→15:58)
[2019-10-20] MEDS: amlodipine 10 mg Tablet PO (08:34)
[2019-10-20] MEDS: aspirin 81 mg EC Tablet PO (08:34)
[2019-10-20] MEDS: ciprofloxacin 500 mg Tablet PO ×2 (08:34→18:26)
[2019-10-20] MEDS: lisinopril 20 mg Tablet PO (08:34)
--- NOTE | 2019-10-20 09:11 | PM.PN ---
Subjective Subjective: Interval history: The patient feels well this morning but he did have a rough night. He ran a temperature of 101 degrees, had some right calf pain, headache, some lower abdominal pain, etc. All of this actually resolved fairly quickly he says, however. He continues to pass some loose stool at times. Vitals/I&O/Wt Last Vital Signs Temp 99.2 F 10/20/19 08:00 Pulse 61 10/20/19 08:00 Resp 16 10/20/19 08:00 BP 145/78 10/20/19 08:00 Pulse Ox 96 10/20/19 08:00 10/19/19 10/20/19 10/20/19 22:59 06:59 14:59 Intake Total 1200 / 2100 200 / 2100 Output Total 2 / 502 Balance 1198 / 1598 200 / 1598 Physical Exam Narrative: EXAM NARRATIVE: Bowel sounds are present. The patient has minimal lower abdominal tenderness on my exam this morning. Francine's sign is negative. Data : 10/20/19 04:42 10/20/19 04:42 Micro: Microbiology 10/19/19 05:29 Blood Culture - Preliminary Blood NEGATIVE TO DATE 10/19/19 05:29 Blood Culture - Preliminary Blood NEGATIVE TO DATE A&P Assessment and plan (1) Perforation of sigmoid colon due to diverticulitis: Clinically, the patient looks very good this morning. He seems to have some issues during the nights. He is now on oral antibiotics. White blood cell count remains normal but he continues to have some intermittent elevated temperatures. Status: Acute (2) Pylephlebitis: Status: Acute (3) Sepsis: Status: Acute Qualifiers: Sepsis type: sepsis due to unspecified organism Sepsis acute organ dysfunction status: with acute organ dysfunction Severe sepsis acute organ dysfunction type: acute renal failure Acute renal failure type: unspecified Severe sepsis shock status: without septic shock Qualified Code(s): A41.9 - Sepsis, unspecified organism; R65.20 - Severe sepsis without septic shock; N17.9 - Acute kidney failure, unspecified (4) Liver mass: Follow-up MRI has been suggested. Status: Acute Attestations Medical Necessity Statement*: See admitting service's notation. 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
--- NOTE | 2019-10-20 11:36 | XRR_ITS ---
PROCEDURE INFORMATION: Exam: XR Chest, 1 View Exam date and time: 10/20/2019 11:39 AM Age: 69 years old Clinical indication: Fever; Prior surgery; Surgery date: 6+ months; Surgery type: Heart stents; Additional info: Fever, evaluate for pneumonia TECHNIQUE: Imaging protocol: XR of the chest Views: 1 view. COMPARISON: CR XR chest 1V portable [id number] 10/15/2019 3:13 PM FINDINGS: Lungs: Unremarkable. No consolidation. Pleural space: Unremarkable. No pleural effusion. No pneumothorax. Heart/Mediastinum: Unremarkable. No cardiomegaly. Bones/joints: No acute findings. XR/XR chest 1V portable [id number] IMPRESSION: No acute findings.
--- NOTE | 2019-10-20 12:25 | CTR_ITS ---
PROCEDURE INFORMATION: Exam: CT Chest Without Contrast Exam date and time: 10/20/2019 1:04 PM Age: 69 years old Clinical indication: Mass, lump, or swelling; Ruq; Patient HX: Liver mass, ascites, diverticulitis PT denies any abd pain TECHNIQUE: Imaging protocol: Computed tomography of the chest without contrast. Radiation optimization: All CT scans at this facility use at least one of these dose optimization techniques: automated exposure control; mA and/or kV adjustment per patient size (includes targeted exams where dose is matched to clinical indication); or iterative reconstruction. COMPARISON: CT abdomen pelvis w con* [id number] 10/17/2019 12:54 PM RADIATION DOSE METRICS: Total DLP (mGy-cm): FINDINGS: Lungs: Unremarkable. No consolidation. No masses. Pleural space: Very small right pleural effusion Heart: No cardiomegaly. No pericardial effusion. Aorta: No aortic aneurysm. Lymph nodes: No significant adenopathy. Bones/joints: No acute findings. Soft tissues: Unremarkable. IMPRESSION: No acute findings. Very small right pleural effusion. PROCEDURE INFORMATION: Exam: CT Abdomen And Pelvis Without Contrast Exam date and time: 10/20/2019 1:04 PM Age: 69 years old Clinical indication: Mass, lump, or swelling; Ruq; Patient HX: Liver mass, ascites, diverticulitis PT denies any abd pain TECHNIQUE: Imaging protocol: Computed tomography of the abdomen and pelvis without contrast. Radiation optimization: All CT scans at this facility use at least one of these dose optimization techniques: automated exposure control; mA and/or kV adjustment per patient size (includes targeted exams where dose is matched to clinical indication); or iterative reconstruction. COMPARISON: 1. CT abdomen pelvis w con* [id number] 10/17/2019 12:[address] abdomen pelvis wo con [id number] 10/15/2019 6:42:[address] angio chest PE protcl [id number] 10/15/2019 5:38:14 PM RADIATION DOSE METRICS: Total DLP (mGy-cm): FINDINGS: Liver: Mass in the left lobe of the liver estimated at 8 x 10 cm. Gallbladder and bile ducts: Partially contracted, possible wall thickening. No ductal dilation. Pancreas: Normal. No ductal dilation. Spleen: Normal. No splenomegaly. Adrenals: Small left adrenal mass estimated at 15 mm, unchanged. Kidneys and ureters: No calculus or hydronephrosis. Stomach and bowel: Pericolonic edema/inflammation decreased. Small branching gas opacities adjacent to the sigmoid colon (series 3, image 55) representing gas within small mesenteric venous branches. Colonic diverticulosis. Appendix: No evidence of appendicitis. Intraperitoneal space: Trace free fluid, no pneumoperitoneum or abscess. Vasculature: No portal venous gas. Lymph nodes: No significant adenopathy. Bladder: Underdistended, possible wall thickening. Reproductive: Unremarkable as visualized. Bones/joints: No acute findings. Soft tissues: Unremarkable. CT/CT chest abd pel wo con IMPRESSION: Hepatic mass consistent with neoplasm, recommend biopsy. Minimal mesenteric venous gas adjacent to the sigmoid colon, no portal venous gas. Trace free fluid. Radiation Dose CTDIVOL = (mGy): DLP = 2010.46~2009.46 (mGy-cm)
--- NOTE | 2019-10-20 12:51 | CTR_ITS ---
PROCEDURE INFORMATION: Exam: CT Head Without Contrast Exam date and time: 10/20/2019 1:04 PM Age: 69 years old Clinical indication: Pain; Headache not specified; Patient HX: C/O occipital MOORE; Additional info: Headaches TECHNIQUE: Imaging protocol: Computed tomography of the head without contrast. Radiation optimization: All CT scans at this facility use at least one of these dose optimization techniques: automated exposure control; mA and/or kV adjustment per patient size (includes targeted exams where dose is matched to clinical indication); or iterative reconstruction. COMPARISON: No relevant prior studies available. RADIATION DOSE METRICS: Total DLP (mGy-cm): 858.49 FINDINGS: Brain: Heterogeneous, predominantly hyperdense partially calcified left parietal mass measuring approximately 3.5 cm. The mass appears to be extra-axial. No edema or mass effect. No midline shift. No acute hemorrhage. Ventricles: Normal. No ventriculomegaly. Bones/joints: Unremarkable. No acute fracture. Sinuses: No acute sinusitis. Mastoid air cells: Unremarkable. Soft tissues: No acute findings. CT/CT head wo con* [id number] IMPRESSION: Partially calcified left parietal mass, probably extra-axial consistent with meningioma. Recommend follow-up contrast-enhanced MRI. Radiation Dose CTDIVOL = (mGy): DLP = 858.49 (mGy-cm)
[2019-10-20 17:02] LABS: Add Urine Microscopic? NO
[2019-10-20 17:11] LABS: Bilirubin Urine Neg (NEGATIVE); Blood Urine Neg (Negative); Glucose Urine UA Norm (Normal); Ketones Urine Negative (Negative); Leukocyte Esterase Urine Negative (Negative); Nitrate Urine Negative (Negative); Protein Urine Neg (Negative); Specific Gravity, Urine 1.005 (1.005-1.030); Urine Appearance Clear (CLEAR); Urine Color Yellow (Yellow); Urobilinogen Urine Norm (Negative); pH Urine 7 (5-7)
--- NOTE | 2019-10-20 19:33 | P.TS_ITS ---
Transfer Summary Providers Date of Admission: 10/16/19 10:11 Date of Discharge: 10/20/19 Attending Provider at Admission: Derek Flores MD Attending Provider at Transfer: Fina Barrientos MD Primary Care Provider: Tahir Cruz MD Anticipated Date of Transfer: Anticipated date of transfer: 10/20/19 Receiving Facility & Provider: Receiving Provider: [] Receiving facility: [[facility]] Diagnoses at Discharge Discharge Diagnosis (1) Perforation of sigmoid colon due to diverticulitis: Status: Acute (2) Pylephlebitis: Status: Acute (3) Sepsis: Status: Acute Qualifiers: Sepsis type: sepsis due to unspecified organism Sepsis acute organ dysfunction status: with acute organ dysfunction Severe sepsis acute organ dysfunction type: acute renal failure Acute renal failure type: unspecified Severe sepsis shock status: without septic shock Qualified Code(s): A41.9 - Sepsis, unspecified organism; R65.20 - Severe sepsis without septic shock; N17.9 - Acute kidney failure, unspecified (4) Liver mass: Status: Acute Reason for Visit Reason for Visit: cp Hospital Course Discharge Summary: From H&P, Jett Perez is a 69 year old male who carries history of coronary artery disease s/p stenting few years ago came in on 10/14 with chief complaint of lethargy, fatigue, abdominal pain, nausea vomiting, few episodes of diarrhea along fever and chills.. Symptoms started on Monday, initially he attributed to the fact that he was moving into a new home, rested over the next 24-36 hrs, but then presented to the hospital when symptoms got worse. Described the pain initially as a bandlike sensation underneath his diaphragm initially. In the emergency department his temperature was 102.7, underwent CT of his chest abdomen and pelvis which was negative for PE or any consolidation, but showed Possible area of associated proximal sigmoid colon wall thickening with overlying pericolonic and mesenteric fat stranding/haziness suggesting mild acute diverticulitis. Small 2-3 mm adjacent extraluminal air collection suggesting small micro perforation and probable small amount of intrahepatic peripheral portal venous gas and possible small gas bubble in the inferior mesenteric vein. Underlying sigmoid colon ischemia not absolutely excluded. Also noted was 8.7 x 6.6 x 5.7 cm lobulated solid mass arising off inferior aspect of left hepatic lobe worrisome for primary or secondary hepatic neoplasm. He was admitted in view of acute diverticulitis with microperforation and pylephlebitis and started on empiric antibiotic treatment with piperacillin tazobactam. LFTs have trended up during the course of admission from AST 35-77. ALT elevation 45-1 34. Alkaline phosphatase and T bili have remained within range. Lipase was additionally normal at 23. General surgery was also consulted and following the patient along. With initiation of broad-spectrum antibiotics, patient initially showed improvement and had defervesced. His nausea and vomiting had subsided however intermittently diarrhea continued. C. difficile PCR was negative. Fecal occult blood was also negative. There was not felt to be a need for any acute surgical intervention given clinical improvement. He had IMANI on admission with creatinine of 1.5 which is now trended down to 1. on October 16, CT of the abdomen and pelvis with contrast was repeated to follow-up on pylephlebitis and evaluate for development of any thrombosis. This study showed Portions of the inferior mesenteric vein show diminished enhancement so possible IMV thrombosis. Otherwise, patent portal, splenic and superior mesenteric veins. Mild sigmoid colon diverticulosis changes and small focus of acute diverticulitis not excluded. Overlying sigmoid colon mesentery continues to have a hazy appearance which could be related to IMV thrombophlebitis and/or acute diverticulitis. Minimal ascites about liver. 1 cm left adrenal nodule. With the possible IMV thrombosis, he was started on full dose anticoagulation with Lovenox. While his fever had improved and he remained afebrile between October 15 to October 17, on the night of October 18 at around midnight he again had a fever of 101 associated with chills. Since admission he had also been complaining of i ntermittent headaches, more intensified today and he underwent a CT of the head to rule out any intracranial bleeding. While the study was negative for any bleeding, it did show a 3.5 cm left parietal partially calcified mass which could represent a meningioma. An MRI was recommended for further evaluation. Patient is being transferred to higher level of care as at this point he needs involvement of GI and possibly neurology/neurosurgery services given that he is on anticoagulation for possible IMV thrombosis with the discovery of a brain mass. Additionally nature of brain and liver lesions still need to be ascertained, which may need biopsies. blood cx has been negative to date. Physical Exam Narrative: EXAM NARRATIVE: GEN: Awake, alert and oriented, no acute distress CVS: S1S2 N RS: CTA B/L Abd: Soft, nt/nd , BS+ CERTIFIED NURSES AIDE: no focal neuro deficits TS Data Data Completed and Pending: Completed Studies During Hospitalization Category Date Time Status CT abdomen pelvis w con* [id number] Rout ine Cat Scan 10/17/19 11:[address] abdomen pelvis wo con [id number] Urge nt Cat Scan 10/15/19 18:[address] angio chest PE protcl [id number] Stat Cat Scan 10/15/19 17:[address] chest abdomen pelvis [CT chest a bd pel wo con] Sta t Cat Scan 10/20/19 12:[address] head wo con* [id number] Routine Cat Scan 10/20/19 12:51 Completed XR chest 1V kevyn ble [id number] Routine Exams 10/20/19 11:36 Completed XR chest 1V kevyn ble [id number] Stat Exams 10/15/19 14:50 Completed CV unlisted vascu lar [id number] Urgent Ultrasound 10/19/19 12:59 [place] [id number] Routin e Ultrasound 10/20/19 01:49 Completed [place] liver [id number] Ur gent Ultrasound 10/15/19 20:06 Completed Pending at discharge Category Date Time Status Blood Culture AM LABS Lab 10/19/19 05:29 Results Blood Culture Sta t Lab 10/16/19 11:45 Results Blood Culture Sta t Lab 10/20/19 12:30 Results MR abdomen wo con [id number] Routine MRI 10/18/19 11:14 Stop Req MR abdomen wo/w c on* [id number] Routine MRI 10/20/19 11:36 Stop Req Labs from last 24 hours 10/20/19 10/20/19 10/20/19 15:50 04:42 04:42 WBC 8.5 RBC 3.41 L Hgb 10.8 L Hct 31.7 L MCV 93.0 MCH 31.7 MCHC 34.1 RDW 12.1 Plt Count 245 MPV 10.9 H Neut % (Auto) 64.7 Lymph % (Auto) 19.5 [place] % (Auto) 13.6 Eos % (Auto) 0.7 Baso % (Auto) 0.4 Neut # (Auto) 5.5 Lymph # (Auto) 1.7 [place] # (Auto) 1.2 H Eos # (Auto) 0.1 Baso # (Auto) 0.0 Nucleated RBC % (a uto) 0 Nucleated RBCs # 0.0 Sodium 141 Potassium 3.4 L Chloride 104 Carbon Dioxide 28 Anion Gap 12.4 BUN 8 Creatinine 1.0 GFR Calculation 74.5 L Glucose 112 Calculated Osmolal ity 289 Calcium 8.6 Total Bilirubin 0.6 AST 53 H ALT 134 H Alkaline Phosphata se 70 Total Protein 5.8 L Albumin 3.3 L Globulin 2.5 Urine Color Yellow Urine Appearance Clear Urine pH 7 Ur Specific Gravit y 1.005 Urine Protein Neg Urine Glucose (UA) Norm Urine Ketones Negative Urine Blood Neg Urine Nitrate Negative Urine Bilirubin Neg Urine Urobilinogen Norm Ur Leukocyte Karley ase Negative Vitals: Last Vital Signs Temp 99.4 F 10/20/19 15:56 Pulse 63 10/20/19 15:56 Resp 16 10/20/19 15:56 BP 164/75 10/20/19 15:56 Pulse Ox 96 10/20/19 15:56 TS Medications Medications Home Medications lovastatin 40 mg tablet 80 mg PO DAILY #180 tab 06/06/19 [Rx Confirmed 10/15/19] carvedilol 25 mg tablet 25 mg PO BID #60 tab 06/26/19 [Rx Confirmed 10/15/19] fenofibrate nanocrystallized 48 mg tablet 48 mg PO DAILY #90 tab 09/12/19 [Rx Confirmed 10/15/19] ibuprofen 800 mg PO PRN 10/15/19 [History Confirmed 10/15/19] lisinopril 40 mg PO DAILY 10/15/19 [History Confirmed 10/15/19] multivitamin [Multiple Vitamins] 1 tab PO DAILY 10/15/19 [History Confirmed 10/15/19] Active Medications Acetaminophen (Tylenol) 650 mg PO Q8H PRN PRN Reason: only if fever Last Admin: 10/20/19 01:03 Dose: 650 mg Documented by: Amlodipine Besylate (Norvasc) 10 mg PO DAILY [facility] Last Admin: 10/20/19 08:34 Dose: 10 mg Documented by: Aspirin (Aspirin Ec) 81 mg PO DAILY [facility] Last Admin: 10/20/19 08:34 Dose: 81 mg Documented by: Ciprofloxacin HCl (Cipro) 500 mg PO BID [facility]; Protocol Last Admin: 10/20/19 18:26 Dose: 500 mg Documented by: Enoxaparin Sodium (Lovenox) 90 mg 1 mg/kg (90 mg) SUBCUT Q12H [facility] Last Admin: 10/20/19 18:25 Dose: 90 mg Documented by: Hydralazine HCl (Apresoline) 5 mg IVP Q4H PRN PRN Reason: SBP>160 Last Admin: 10/19/19 17:42 Dose: 5 mg Documented by: Ketorolac Tromethamine (Toradol) 15 mg IVP Q8H PRN PRN Reason: MODERATE PAIN Stop: 10/23/19 18:53 Last Admin: 10/20/19 18:29 Dose: 15 mg Documented by: Lisinopril (Prinivil) 20 mg PO DAILY [facility] Last Admin: 10/20/19 08:34 Dose: 20 mg Documented by: Metronidazole (Flagyl Tab) 500 mg PO TID [facility] Last Admin: 10/20/19 15:58 Dose: 500 mg Documented by: Ondansetron HCl (Zofran) 4 mg IVP Q6H PRN PRN Reason: NAUSEA AND VOMITING Last Admin: 10/20/19 01:25 Dose: 4 mg Documented by: Discharge Plan Discharge Patient Disposition: Xfer Other Condition: Stable Prescriptions: No Action lovastatin 40 mg tablet 80 mg PO DAILY Qty: 180 RF: 3 carvedilol 25 mg tablet 25 mg PO BID Qty: 60 RF: 3 fenofibrate nanocrystallized 48 mg tablet 48 mg PO DAILY Qty: 90 RF: 3 Multiple Vitamins Tablet 1 tab PO DAILY RF: 0 ibuprofen 800 mg Tablet 800 mg PO PRN RF: 0 lisinopril 40 mg tablet 40 mg PO DAILY RF: 0 Discharge Diet: Clear Liquid Transfer Attestations Time Spent in Transfer Care*: greater than 30 min Quality Metrics Clinical Quality Measures: During this hospital stay, did patient experience: None Coding Level of Care Code Acute Member Service Representative for [facility] Fwd Diagnoses Perforation of sigmoid colon due to diverticulitis K57.20 Pylephlebitis K75.1 Sepsis A41.9; R65.20; N17.9 Sepsis type: sepsis due to unspecified organism Sepsis acute organ dysfunction status: with acute organ dysfunction Severe sepsis acute organ dysfunction type: acute renal failure Acute renal failure type: unspecified Severe sepsis shock status: without septic shock Liver mass R16.0
--- NOTE | 2019-10-20 21:36 | PC.NURSE ---
Transfer note Patient transferred via [facility]. Nurse called report to Colton De Oliveira RN, [facility] [place]. Patient vitals stable, alert and orientated. at bedside.
--- NOTE | 2019-10-21 15:23 | PC.RESP ---
Smoking Cessation information sent to patient with a schedule of classes.
--- NOTE | 2019-10-28 10:00 | PC.SOCIAL ---
Per Recovery Engineer, called [facility] and inquired what floor patient was on and asked the sdv pilot/navigator/dds operator to be connected. Once connected to floor 4A, I spoke with nurse Orlando, and obtained faxed number of [phone] and faxed over blood culture results. Did receive a successful fax confirmation.
== END 2019-10-20 22:58 | disposition short-term general hospital (02) | DRG 871 ==
LOC: ER 15:14 → MEDSURG 20:54
PROVIDERS: Family Medicine; Admitting Provider Internal Medicine; PCP Family Medicine; Visit Provider Student in an Organized Health Care Education/Training Program
DX: A41.9 Sepsis, unspecified organism (principal); K75.1 Phlebitis of portal vein; K57.32 Diverticulitis of large intestine without perforation or abscess without bleeding; N17.9 Acute kidney failure, unspecified; R65.20 Severe sepsis without septic shock; R16.0 Hepatomegaly, not elsewhere classified; D18.03 Hemangioma of intra-abdominal structures; K83.8 Other specified diseases of biliary tract; I25.10 Atherosclerotic heart disease of native coronary artery without angina pectoris; Z95.5 Presence of coronary angioplasty implant and graft; Z79.82 Long term (current) use of aspirin; I35.0 Nonrheumatic aortic (valve) stenosis; E78.5 Hyperlipidemia, unspecified; I10 Essential (primary) hypertension; F17.210 Nicotine dependence, cigarettes, uncomplicated
CPT/HCPCS: 12345; 36415; 70450; 71045; 71250; 71275; 74176; 74177; 76705; 80053; 81003; 82105; 82274; 82550; 83605; 83690; 84484; 85025; 85378; 85610; 86140; 86618; 86666; 86705; 86706; 86709; 86757; 86803; 87040; 87205; 87340; 87493; 93005; 93971; 93998; 96372; 96375; 99283; G0378; J0360; J0744; J1650; J1885; J2405; J2543; J7030; Q9967; S0030

== ENCOUNTER 2020-04-23 10:33 | Day surgery (SDC) | payer MEDICARE, SELFPAY ==
--- NOTE | 2020-04-23 10:44 | P.HP_ITS ---
Same Day Surgery H&P Indication for Procedure/HPI DATE OF PROCEDURE: April 23, 2020 CHIEF COMPLAINT/INDICATIONFOR SURGICAL PROCEDURE: h/o diverticultis PREOP DIAGNOSIS: diagnostic PLANNED PROCEDRUE: Operation Date: 04/23/20 11:30 Proposed Procedures p Colonoscopy 62179 Z12.11(Not Applicable) - Rene Duque MD Medications/Allergies* Home Medications Medication Instructions Recorded Confirmed Type multivitamin [Multiple Vitamins] 1 tab PO DAILY 10/15/19 04/21/20 History amlodipine 5 mg tablet 5 mg PO DAILY 11/28/19 04/21/20 History allopurinol 100 mg tablet 100 mg PO DAILY 12/27/19 04/21/20 History lovastatin 40 mg tablet 40 mg PO DAILY 12/27/19 04/21/20 History metformin 500 mg tablet 500 mg PO BID 12/27/19 04/21/20 History Allergies/Adverse Reactions Allergy/AdvReac Type Severity Reaction Status Date / Time No Known Allergies Allergy Verified 12/27/19 11:11 Pertinent History/Comorbid Conditions* Medical History (Updated 12/27/19 @ 17:55 by Rene Duque MD) Aortic valve stenosis Mild aortic stenosis Aortic valve stenosis Atherosclerotic heart disease of [place] coronary artery without angina pectoris Carotid artery disease Cervical radiculopathy due to degenerative joint disease of spine Chronic neck pain With associated headaches Coronary artery disease Dyslipidemia Dyslipidemia Essential (primary) hypertension Gout Heatstroke History of colon polyps Hypertension Mesenteric vein thrombosis Rectal bleeding Sinus bradycardia Syncope Surgical History (Updated 10/17/19 @ 18:14 by Jasmeet Orantes MD) Abnormal colonoscopy 2 adenomatous polyps 12/2014 H/O cardiac catheterization Dimension of right coronary artery 2007 Cardiac stent x2 H/O hemorrhoidectomy History of tonsillectomy Family History (Updated 10/15/19 @ 20:18 by Derek Flores MD) Denies family history of Diabetes Family history of premature coronary artery disease Social History Smoking and tobacco status: former smoker Quit status (tobacco): has quit using tobacco Year quit tobacco: Around 1994 Former quit date comment: [id number] history prior to that Alcohol intake: current Alcohol type: beer Household members: spouse Housing: House Pertinent Exam Findings alert, oriented x 3 and regular rate & rhythm Recommendations Surgery/Procedure today Coding Level of Care Code Acute Chair Lift Operator for Steven Terrazas
[2020-04-23 10:55] VITALS: BP 132/69; PULSE 50; RESP 16; TEMP 36.6; O2SAT 96
[2020-04-23] MEDS: sodium chloride 0.9% 1,000 ML 30 ML IV (11:14)
[2020-04-23 11:18] LABS: Glucose Point of Care 121 mg/dL (70-110)
--- NOTE | 2020-04-23 11:37 | P.ANESASSM_ITS ---
Pre-Anesthetic Assessment Pre-Anesthetic Assessment: Height/Weight: Height 1.73 m Weight 83.915 kg Temp Pulse Resp BP Pulse Ox 97.8 F 50 L 16 132/69 96 04/23/20 10:55 04/23/20 10:55 04/23/20 10:55 04/23/20 10:55 04/23/20 10:55 Preop Diagnosis: diagnostic Proposed Procedure: Operation Date: 04/23/20 11:30 Proposed Procedures p Colonoscopy 15289 Z12.11(Not Applicable) - Rene Duque MD Familial anesthetic complications: None Was Beta Nay taken within 24 hours: N/A Last intake: Intake Last Liquid Date 04/22/20 Last Liquid Time 23:30 Last Solid Date 04/21/20 Last Solid Time 23:30 Social: Social History: No alcohol and No tobacco Exam: Pre-Anes Outpt Exam: alert, oriented x 3, clear to auscultation bilater ally and regular rate & rhythm Airway: Cervical ROM: WNL MP: 2 Dentition: False CV/HEM: CV/HEM: Arrythmia (bradycardia), CAD and HTN Comments: Mod AV stenosis Stent in RCA 2007 - declining any further caths, doing well from a functional standpoint Echo 2018 - EF 60% mesenteric vein thrombosis Neuropsych: Comments: mod B/L LY Anesthetic Plan: ASA status: 3 Anesthesia: MAC Risk of > 500 ml blood loss (7ml/kg in children): No Meds/Allergies Current Medications: Current Medications Generic Name Dose Route Start Last Admin Trade Name Freq PRN Reason Stop Dose Admin Sodium Chloride 1,000 mls @ 30 ml s/hr 04/23/20 10:45 04/23/20 11:14 Sodium Chloride 0.9% IV 04/24/20 10:44 30 mls/hr .Q24H AKBAR Administration PFSH Anesthesia PFSH: Medical History (Updated 12/27/19 @ 17:55 by Rene Duque MD) Aortic valve stenosis Mild aortic stenosis Aortic valve stenosis Atherosclerotic heart disease of [place] coronary artery without angina pectoris Carotid artery disease Cervical radiculopathy due to degenerative joint disease of spine Chronic neck pain With associated headaches Coronary artery disease Dyslipidemia Dyslipidemia Essential (primary) hypertension Gout Heatstroke History of colon polyps Hypertension Mesenteric vein thrombosis Rectal bleeding Sinus bradycardia Syncope Surgical History Abnormal colonoscopy 2 adenomatous polyps 12/2014 H/O cardiac catheterization Dimension of right coronary artery 2007 Cardiac stent x2 H/O hemorrhoidectomy History of tonsillectomy Family History Denies family history of Diabetes Family history of premature coronary artery disease Social History Smoking and tobacco status: former smoker Quit status (tobacco): has quit using tobacco Year quit tobacco: Around 1994 Former quit date comment: [id number] history prior to that Alcohol intake: current Alcohol type: beer Household members: spouse Housing: House Data Anesthesia Other Labs: Laboratory Results - last 48 hr 04/23/20 11:13 POC Glucose 121 H Cardiac Studies: No Data to Display
[2020-04-23 13:16] VITALS: BP 97/53; PULSE 50; RESP 16; TEMP 36.3; O2SAT 94
[2020-04-23 13:34] VITALS: BP 125/68; PULSE 50; RESP 16; O2SAT 95
--- NOTE | 2020-04-23 19:30 | ANE.PACU2 ---
Inpatient post-anesthesia follow up: Airway intact: Yes Vital signs: Temperature 97.3 F Pulse Rate 50 Respiratory Rate 16 Blood Pressure 125/68 Pulse Oximetry 95 Oxygen Delivery Me thod Room Air Oxygen Flow Rate Fraction of Inspir ed Oxygen Hydration adequate: Yes Nausea and vomiting: No Pain level: 1 Mental status: Baseline
== END 2020-04-23 13:40 | disposition home or self-care (01) ==
PROVIDERS: PCP Family Medicine; Visit Provider Surgery
PROC: 0DJD8ZZ Inspection of Lower Intestinal Tract, Via Natural or Artificial Opening Endoscopic (ICD-10-PCS; CPT 45378; principal; 2020-04-23 11:30)
DX: Z87.19 Personal history of other diseases of the digestive system (principal); K57.30 Diverticulosis of large intestine without perforation or abscess without bleeding; D12.8 Benign neoplasm of rectum; I25.10 Atherosclerotic heart disease of native coronary artery without angina pectoris; I10 Essential (primary) hypertension; E78.5 Hyperlipidemia, unspecified; Z86.010 Personal history of colon polyps; Z87.891 Personal history of nicotine dependence
CPT/HCPCS: 12345; 36416; 45380; 82962; 88305; J2704; J7030

== ENCOUNTER 2020-06-18 09:08 | Outpatient (CLI) | payer MEDICARE, SELFPAY ==
[2020-06-18 09:45] LABS: Basophils % 0.4 %; Eosinophils # 0.1 10^3/uL (0.0-0.8); Eosinophils % 2.7 %; Hematocrit 38.8 % (42.0-52.0); Hemoglobin 13.1 g/dL (11.7-16.6); Lymphocytes # 1.9 10^3/uL (0.8-4.8); Lymphocytes % 36.8 %; Mean Corpuscular HGB Conc 33.8 g/dL (30.0-36.0); Mean Corpuscular Hemoglobin 31.8 pg (28.0-34.0); Mean Corpuscular Volume 94.2 fL (80-94); Mean Platelet Volume 9.6 fL (7.4-10.4); Monocytes # 0.6 10^3/uL (0.2-0.9); Monocytes % 10.8 %; Neutrophils # 2.54 10^3/uL (1.8-7.7); Neutrophils % 48.9 %; Nucleated Red Blood Cells % 0 %; Platelet Count 224 10^3/cmm (130-400); Red Blood Count 4.12 10^6/uL (4.1-5.3); Red Cell Distribution Width 13.9 % (12.1-15.1); White Blood Count 5.2 10^3/uL (4.0-10.0)
[2020-06-18 10:09] LABS: Alanine Aminotransferase 20 U/L (0-41); Albumin Level 4.6 g/dL (3.5-5.2); Alkaline Phosphatase 82 IU/L (40-130); Anion Gap 12.3 (5-19); Aspartate Amino Transferase 17 U/L (0-40); Blood Urea Nitrogen 26 mg/dL (8-23); Carbon Dioxide 26 mmol/L (22-29); Chloride 105 mmol/L (98-107); Chol HDL Ratio 3.43 mg/dL (1.0-5.00); Cholesterol 137 mg/dL (0-200); Globulin 2.8 g/dL (1.3-4.6); Glomerular Filtration Rate 60.4 mL/min (90-130); Glucose 115 mg/dL (65-115); HDL Cholesterol 40 mg/dL (60-100); LDL Cholesterol Calculated 75 mg/dL (50-129); LDL HDL Ratio 1.88 RATIO (0.00-3.22); Osmolality Calculated 294 mOsm/kg (285-295); Potassium 4.3 mmol/L (3.5-5.1); Sodium 139 mmol/L (136-145); Total Bilirubin 0.9 mg/dL (0.15-1.2); Total Protein 7.4 g/dL (6.6-8.7); Triglycerides 111 mg/dL (0-150); Uric Acid 5.9 mg/dL (3.4-7.0)
[2020-06-18 10:14] LABS: Creatinine Urine, Random 94 mg/dL (39-259)
[2020-06-18 10:17] LABS: Microalbum Creatinine Ratio Ur 11 mg/dL (0-20); Microalbumin Random Urine 1 ug/dL (0-20)
[2020-06-18 11:04] LABS: Estmated Average Glucose 91; Hemoglobin A1C 4.8 % (4.0-6.0)
== END 2020-06-18 09:09 | disposition home or self-care (01) ==
PROVIDERS: PCP Family Medicine
DX: R74.01 Elevation of levels of liver transaminase levels (principal); I10 Essential (primary) hypertension; E78.5 Hyperlipidemia, unspecified; E11.9 Type 2 diabetes mellitus without complications; M10.9 Gout, unspecified
CPT/HCPCS: 36415; 80053; 80061; 82044; 82248; 83036; 84550; 85025

== ENCOUNTER 2020-08-31 08:27 | Outpatient (RCR) | payer MEDICARE, SELFPAY | END 2020-09-14 23:59 | disposition home or self-care (01) | LOC: SPT 08:27 | PROVIDERS: PCP Family Medicine; Referring Provider Neurological Surgery; Visit Provider Neurological Surgery | DX: M54.2 Cervicalgia (principal) | CPT/HCPCS: 97110; 97140; 97161; G0283 ==

== ENCOUNTER 2020-09-15 06:00 | Outpatient (RCR) | payer MEDICARE, SELFPAY | END 2020-09-29 23:00 | disposition home or self-care (01) | LOC: SPT 06:00 | PROVIDERS: PCP Family Medicine; Referring Provider Neurological Surgery; Visit Provider Neurological Surgery | DX: M54.2 Cervicalgia (principal) | CPT/HCPCS: 97110; 97140; 97161; G0283 ==

== ENCOUNTER → 2021-07-21 11:05 | Outpatient (BNVA) | payer MEDICARE, SELFPAY | PROVIDERS: PCP Family Medicine; Visit Provider Internal Medicine Cardiovascular Disease | DX: I25.10 Atherosclerotic heart disease of native coronary artery without angina pectoris (principal); I65.23 Occlusion and stenosis of bilateral carotid arteries; Z87.891 Personal history of nicotine dependence | CPT/HCPCS: 99214 ==

== ENCOUNTER 2021-10-11 06:14 | Outpatient (CLI) | payer MEDICARE, SELFPAY ==
--- NOTE | 2021-10-11 06:30 | USCV_ITS ---
Jett Perez Age: 70 Gender: M : 1950 Exam Date: 10/11/2021 06:35 Ordering Phys: Tammi Pruitt MD ([email or web address] [email or web address]) Technologist: DAISY [place] [facility] [place]: Carotid Stenosis Risk Factors: Previous Vascular Surgery: Right Brachial BP: / Left Brachial BP: / Right Left Velocity (cm/s) Spectral Plaque Velocity (cm/s) Spectral Plaque Syst/Diast Broadening Syst/Diast Broadening 62.90/ 13.20 Prox CCA 76.10 / 13.20 75.40/ 24.10 Mid CCA 104.20/ 13.70 65.60/ 13.20 Distal CCA 82.90 / 17.90 35.00/ 10.10 Prox ICA 54.00 / 19.90 54.40/ 18.60 Mid ICA 51.80 / 18.50 56.70/ 19.40 Distal ICA 66.70 / 21.30 61.20 ECA 88.00 0.75 ICA/CCA 0.64 Antegrade Vertebral Antegrade 37.30/ 14.80 cm/s 31.00/ 6.90 cm/s Tri Subclavian Tri 155.1 64.10 0 FINDINGS Comparison:. 02/14/18. Diffuse bilateral scattered calcified plaque and intimal thickening throughout the common carotid arteries and extending through the bifurcation. Mild progression of atherosclerotic disease since the prior exam. No high grade stenosis. Antegrade vertebral arteries. CONCLUSIONS Bilateral ICA stenosis less than 50%. Diffuse carotid atherosclerosis with progression since 2018. Dr. dAilia Bagley DO (Electronically Signed) Final Date: 11 October 2021 08:39 S
== END 2021-10-11 06:15 | disposition home or self-care (01) ==
LOC: RAD 06:15
PROVIDERS: PCP Family Medicine; Visit Provider Internal Medicine Cardiovascular Disease
DX: I65.23 Occlusion and stenosis of bilateral carotid arteries (principal); I77.9 Disorder of arteries and arterioles, unspecified
CPT/HCPCS: 93880

== ENCOUNTER → 2022-01-12 15:32 | Outpatient (BNVA) | payer MEDICARE, SELFPAY | PROVIDERS: PCP Family Medicine; Visit Provider Internal Medicine Cardiovascular Disease | DX: I25.10 Atherosclerotic heart disease of native coronary artery without angina pectoris (principal); M79.606 Pain in leg, unspecified; I10 Essential (primary) hypertension; I65.23 Occlusion and stenosis of bilateral carotid arteries; I35.0 Nonrheumatic aortic (valve) stenosis; E78.5 Hyperlipidemia, unspecified | CPT/HCPCS: 99214 ==

== ENCOUNTER 2022-03-08 06:10 | Outpatient (CLI) | payer MEDICARE, SELFPAY ==
--- NOTE | 2022-03-08 06:30 | USCV_ITS ---
Chris Jett Age: 71 Gender: M : 1950 Exam Date: 03/08/2022 06:26 Ordering Phys: Tammi Pruitt MD ([email or web address]) Technologist: CT [place] [facility] [place]ication: pvd Risk Factors: Previous Vascular Surgery: RIGHT LEFT BP: 150.0 / 73.00 BP: 145.0/ 67.00 0 0 Waveform Velocity (cm/s) Velocity (cm/s) Waveform Monophasic 42.1 Iliac Prox 104.1 Triphasic Monophasic 62.5 Iliac Mid 180.4 Triphasic Monophasic 61.2 Iliac Distal 167.3 Triphasic Monophasic 63.2 SLITTER HELPER 194.5 Triphasic Monophasic 67.8 SFA Prox 166.6 Triphasic Monophasic 73.2 SFA Mid 413.5 Monophasic Monophasic 74.1 SFA Dist 36.7 Monophasic Monophasic 23.6 POP 85.6 Monophasic Monophasic 44.5 GOLF CADDY 46.8 Monophasic Monophasic 13.6 DPA 46.8 Monophasic 0.7 ERICKA 0.7 FINDINGS Moderate to heavy heterogenous plaques at the right iliac and femoral arteries. Moderate diffuse plaques in the left iliac artery. Heavy heterogenous plaques at flow turbulence and spectral broadening in the SFA more so at the region of the mid segment. Monophasic and continuous waveforms in the posterior tibial and dorsalis pedis arteries on the left side. Resting ERICKA 0.7 bilaterally CONCLUSIONS 1. Abnormal resting ABIs bilaterally, suggestive of moderate peripheral artery disease. 2. Elevated velocity with flow turbulence and spectral broadening at the mid superficial femoral artery suggestive of a high-grade stenosis of greater than 70%. 3. Abnormal Doppler waveforms in the posterior tibial and dorsalis pedis arteries in the left side, may suggest collateral filling of these vessels No similar previous studies are available for comparison Consider peripheral angiogram to better evaluate the peripheral arteries and possible intervention Dr Tammi Pruitt MD [facility] (Electronically Signed) Final Date: 08 March 2022 09:02 S
== END 2022-03-08 06:11 | disposition home or self-care (01) ==
PROVIDERS: PCP Nurse Practitioner Adult Health; Visit Provider Internal Medicine Cardiovascular Disease
DX: I73.9 Peripheral vascular disease, unspecified (principal); M79.606 Pain in leg, unspecified
CPT/HCPCS: 93925

== ENCOUNTER 2022-03-29 06:00 | Outpatient (CLI) | payer MEDICARE, SELFPAY | END 2022-03-29 06:01 | disposition home or self-care (01) | LOC: CCL 05-14 12:14 | PROVIDERS: PCP Nurse Practitioner Adult Health; Visit Provider Internal Medicine | DX: M79.606 Pain in leg, unspecified (principal); I25.10 Atherosclerotic heart disease of native coronary artery without angina pectoris | CPT/HCPCS: J1644 ==

== ENCOUNTER 2022-05-19 07:32 | Outpatient (CLI) | payer MEDICARE, SELFPAY ==
[2022-05-19] VITALS (26 sets, daily range): BP systolic 123–184; BP diastolic 59–79; PULSE 35–54; RESP 7–22; TEMP 36.7–37.2; O2SAT 92–99; BMI 30.1
--- NOTE | 2022-05-19 07:30 | XACV_ITS ---
Ht: 173 cm Wt: 90 kg BSA: 2.10 m2 Gender: Male : 1950 Exam Type: Invasive Peripheral Vascular Procedure(s): Procedure Description: Peripheral Cath Diagnostic Procedure Procedure Description: Peripheral vascular Intervention Procedure Description: PV Balloon Procedure Description: PV Atherectomy Exam Priority: Routine Abdominal Diagnostic Findings Distal abdominal aorta: Patent. Lower Extremity Diagnostic Findings INDICATION: 71-year-old man with past medical history of hypertension, aortic stenosis who has been having severe lifestyle limiting claudication bilaterally. He had arterial ultrasound of bilateral lower extremities with ABIs. ABIs were low with a value of 0.7 bilaterally. He is here for peripheral angiogram with possible percutaneous intervention. Left lower extremity findings: Left common iliac artery: Patent . Left external iliac artery: Patent. Left FLOOR LAYER TILE: Patent Left SFA: Ostial severe disease. Diffusely diseased vessel. In the midsegment it is subtotally occluded with 99% stenosis in mid segment. Heavily calcified vessel. Left popliteal artery: Patent, distal vessel at takeoff of for anterior tibial artery has 50% stenosis. Left TP segment: Patent Left anterior tibial artery: Has diffuse disease about patent. Leftposterior tibial artery: Patent Left peroneal artery: Patent. Right lower extremity findings: Right common iliac artery: Patent. Right external iliac artery: Patent. Right FLOOR LAYER TILE: Has severe heavily calcified 90% stenosis. Right SFA: Proximal to distal diffuse severe disease which is heavily calcified. Right popliteal artery: Has moderate to severe 60 to 70% stenosis . Right TP segment: Patent. Right anterior tibial artery occluded Right posterior tibial artery: Patent. Right peroneal artery: Patent . Left Proximal Superficial Femoral Artery: 90% stenosis. Left Mid-longitudinal Superficial Femoral Artery: 99% stenosis. Lower Extremity Interventional Findings Procedure detail: We initially obtained access in right common femoral artery. We then switched short sheath for long Cook sheath which was brought up and over into left external iliac artery. Using Glidewire and seeker support catheter, we crossed severely stenotic SFA. Through seeker support catheter we switched Glidewire to a Viper wire. Orbital atherectomy was performed from ostial SFA to the distal SFA. We performed balloon angioplasty with 6.0 x 220 mm drug-coated coated balloon. This was followed by balloon angioplasty with 7.0 x 100 mm balloon in mid SFA segment. At this time final angiogram was performed that showed excellent vessel expansion. Long sheath was switched to short sheath. Patient left the Sawmill Worker in stable condition. Left Proximal Superficial Femoral Artery: 90% stenosis treated with Lutonix [id number]. Left Mid-longitudinal Superficial Femoral Artery: 99% stenosis treated with Lutonix 035 [id number] and AB ARMADA 35 [id number] [id number]. Conclusions Severe left SFA , heavily calcified disease status post successful revascularization with orbital arthrectomy and balloon angioplasty. Severe right lower extremity stenosis. Staged revascularization will be performed. Left Proximal Superficial Femoral Artery was treated with Balloon. Left Mid-longitudinal Superficial Femoral Artery was treated with two Balloon. Recommendations Dual antiplatelet therapy. Outpatient cardiology follow up. Hemodynamic Data Phase:Rest AO : 157.0 / 62.0 ( 96.0 ) @ 8:46:00 AM 164.0 / 68.0 ( 100.0 ) @ 9:04:00 AM 131.0 / 69.0 ( 93.0 ) @ 9:19:00 AM 149.0 / 66.0 ( 94.0 ) @ 9:25:00 AM 197.0 / 80.0 ( 117.0 ) @ 9:31:00 AM Access Site Site: Right Femoral artery Sheath Size: 6 Fr Hemost... Method: Suture Hemost... Success: Successful Procedure Details Findings Procedure Consent Obtained. Admit Source: Out Patient. Pre-Procedure Time Out. Identified patient by full name and date of as verbalized by the patient/guarantor. Does the consent match the physician's order: Yes. Accurate & Complete Informed Consent: Yes. Inpatient/Outpatient History & Physical on Chart: Yes. If H&P is completed, is and addenduem needed: No; If yes, is the addendum complete: N/A. Visualize and Verify Site with Patient/Guarantor: N/A. Relevant Radiology Images available: Yes. The risks, benefits, and alternatives of sedation and/or procedure were discussed by physician. The patient agrees to continue. Procedure started. Correct patient, site and procedure confirmed by cath team. PERRLA. Strong, equal hand veneer manufacturer bilaterally. Lungs clear x 5 lobes. IV Site on Arrival: 20 gauge in the right anticubital. IV Fluids: 0.9% NaCl at KVO. 0 mL infused prior to lab clerk. Pre Procedural Pulses: bilateral posterior tibial was 1+. Pre Procedural Pulses: left dorsalis pedis was 2+. Pre Procedural Pulses: right dorsalis pedis was 1+. Oxygen started at 2liters/min via nasal canula. bilateral groins was prepped with chloroprep then draped in the usual sterile fashion. Physician notified. Baseline sample Acquired. HR: 39 BPM. Physician arrived. Physician scrubbed in. Time out performed with cath team. Lidocaine 1% infiltrated to the right groin. Arterial access obtained with micropuncture set. A 5FrFr UF catheter in over wire. Abdominal aortogram performed in AP @ 10 mL/sec for a total of 30 mL. Pulling catheter down into descending aorta. Glidewire inserted. Wire out. Sheath injected in Left common femoral artery and runoff performed. Left common iliac selected and arteriogram with runoff performed @ 10 mL/sec for a total of 30 mL. Glidewire inserted. Catheter removed over the glide wire. Short sheath exchanged for long 6F sheath. Seeker going in over glidewire. Glidewire out. Hand injection of left lower vessels performed using DSA @ 10 mL/sec for a total of 30 mL. Viper wire going in. Seeker out over the wire. Badger inserted over the wire. Orbital atherctomy perfomed of the left sfa. Jesse coming out. Seeker in over the viper wire. Viper wire out. Glidewire going in. Seeker out over the glidewire. Checking results. Inflation number : 1 A Lutonix 035 [id number] was prepped and advanced across the Mid Superficial Femoral, Left , then inflated to 7 DIMAS for 2:01 seconds. Inflation number: 1 The Lutonix 035 [id number] was reinflated across the Proximal Superficial Femoral, Left, to 6 DIMAS for 1:31 seconds. Balloon out. Results checked. ACT drawn. Results 182 seconds. Therapeutic limits - pre-heparin administration 90-150 seconds and monitoring heparin during a vascular procedure >250 seconds. Inflation number : 2 A AB ARMADA 35 [id number] [id number] was prepped and advanced across the Mid Superficial Femoral, Left , then inflated to 6 DIMAS for 1:30 seconds. Balloon out. Results checked. Sheath exchanged for short 6F sheath. Glidewire out. Illiac runoff in DSA 10mls for 30 sec. Right leg runoff 10 ml for 30 secs. ACT drawn. Results 200 seconds. Therapeutic limits - pre-heparin administration 90-150 seconds and monitoring heparin during a vascular procedure >250 seconds. A Suture was successful obtaining hemostatsis at the Right Femoral artery insertion site. PERRLA. Strong, equal hand veneer manufacturer bilaterally. No VTE prophylaxis required. Medication's Wasted: Lidocaine 1% = 1 mL. Medication's Wasted: Nitro = 48.6 mg. Medication's Wasted: Other = versed 1 mg. Medication's Wasted: Other = fentanyl 50 mcg. Medication's Wasted: Heparin = 4000 units. Total IV fluids: 122 mL. Post-op diagnosis: severe right and left SFA stenosis. S/P athrectomy of Left SFA and ballonn athrectomy. Complications: none. Estimated blood loss: 5mL-10mL. Responsiveness - Normal response to verbal stimuli; alert and oriented, PERRLA. Airway - Unaffected, no intervention required; spontaneous ventilation. Circulation: W/N/L, pulses unchanged. Nausea/Vomiting: No. Procedure completed. Patient transferred by bed to CPRU. Vital chart was stopped. Procedure Medications Start: 8:41 AM Stop: 8:41 AM Medication: Versed Amount: 1 mg Route: I.V. Start: 8:41 AM Stop: 8:41 AM Medication: Fentanyl Amount: 50 mcg Route: I.V. Start: 8:42 AM Stop: 8:42 AM Medication: Versed Amount: 1 mg Route: I.V. Start: 9:17 AM Stop: 9:17 AM Medication: Heparin Amount: 6000 units Route: I.V. Start: 9:18 AM Stop: 9:18 AM Medication: Versed Amount: 1 mg Route: I.V. Start: 9:31 AM Stop: 9:31 AM Medication: Heparin Amount: 1000 units Route: I.V. Start: 9:36 AM Stop: 9:36 AM Medication: Nitrogylcerin Amount: 400 mcg Route: I.A. Start: 9:41 AM Stop: 9:41 AM Medication: Heparin Amount: 2000 units Route: I.V. Start: 9:51 AM Stop: 9:51 AM Medication: Aspirin Amount: 325 mg Route: P.O. Start: 9:51 AM Stop: 9:51 AM Medication: Plavix Amount: 300 mg Start: 9:55 AM Stop: 9:55 AM Medication: Heparin Amount: 1000 units Route: I.V. I, the attending physician, have reviewed and verified all procedure medications. Yes, all medications given per verbal order History/Risk Factors Hypertension: Yes Dyslipidemia: Yes Peripheral Arterial Disease (PAD): Yes Obesity: No Renal Disease: No Tobacco Use: Former Prior Interventions PCI: Yes CABG: No Valve Surgery: No Date of PCI: 10/16/2007 Report Signatures Finalized by Ildefonso White MD on 06/01/2022 06:35 PM
[2022-05-19 07:59] LABS: Glucose Point of Care 114 mg/dL (70-110)
[2022-05-19] MEDS: diphenhydrAMINE 50 mg Capsule PO (08:00)
[2022-05-19 08:03] LABS: Basophils % 0.2 %; Eosinophils # 0.2 10^3/uL (0.0-0.8); Eosinophils % 3.8 %; Hematocrit 38.1 % (42.0-52.0); Hemoglobin 12.8 g/dL (11.7-16.6); Lymphocytes # 1.7 10^3/uL (0.8-4.8); Lymphocytes % 38.7 %; Mean Corpuscular HGB Conc 33.6 g/dL (30.0-36.0); Mean Corpuscular Hemoglobin 32.2 pg (28.0-34.0); Mean Corpuscular Volume 95.7 fl (80-94); Mean Platelet Volume 9.5 fL (7.4-10.4); Monocytes # 0.4 10^3/uL (0.2-0.9); Monocytes % 9.6 %; Neutrophils # 2.12 10^3/uL (1.8-7.7); Neutrophils % 47.5 %; Nucleated Red Blood Cells % 0 %; Platelet Count 166 10^3/cmm (130-400); Red Blood Count 3.98 10^6/uL (4.1-5.3); Red Cell Distribution Width 12.3 % (12.1-15.1); White Blood Count 4.5 10^3/uL (4.0-10.0)
[2022-05-19 08:20] LABS: Anion Gap 14.6 (5-19); Blood Urea Nitrogen 15 mg/dL (8-23); Calcium 9.2 mg/dL (8.5-10.5); Carbon Dioxide 28 mmol/L (22-29); Chloride 104 mmol/L (98-107); Glomerular Filtration Rate 83.7 mL/min (90-130); Glucose 111 mg/dL (65-115); Osmolality Calculated 296 mOsm/kg (285-295); Potassium 4.6 mmol/L (3.5-5.1); Sodium 142 mmol/L (136-145)
--- NOTE | 2022-05-19 08:38 | P.HP_ITS ---
Same Day Surgery H&P Indication for Procedure/HPI DATE OF PROCEDURE: May 19, 2022 CHIEF COMPLAINT/INDICATIONFOR SURGICAL PROCEDURE: Severe lifestyle limiting claudication PREOP DIAGNOSIS: Severe lifestyle limiting claudication PLANNED PROCEDURE: Operation Date: 05/19/22 08:30 Proposed Procedures p Peripheral Angio 71968, M79.606, I25.10(Not Applicable) - Ildefonso White M.D Possible intervention 71-year-old man with past medical history of hypertension, aortic stenosis who has been having severe lifestyle limiting claudication bilaterally. He had arterial ultrasound of bilateral lower extremities with ABIs. ABIs were low with a value of 0.7 bilaterally. He is here for peripheral angiogram with possible percutaneous intervention. ROS CONSTITUTIONAL: No fever chills weight loss or gain or night sweats. [] HEENT: Normocephalic, atraumatic.[] RESPIRATORY: No cough, sputum, hemoptysis or wheezing.[] CARDIOVASCULAR: No shortness of breath, chest pain, PND, orthopnea, lower extremity edema, presyncope or syncope. [] GI: no nausea vomiting diarrhea. [] ORTHODONTIST ASSISTANT: No numbness, tingling, weakness or loss of function in any part of the body. [] MUSCULOSKELETAL:Has bilateral lower extremity pain on exertion. Medications/Allergies* Home Medications Medication Instructions Recorded Confirmed Type multivitamin (Multiple Vitamins 1 tab PO DAILY 10/15/19 05/18/22 History tablet) metformin 500 mg tablet 500 mg PO BID 12/27/19 05/18/22 History colchicine 0.6 mg tablet 0.6 mg PO DAILY 06/09/20 05/18/22 History allopurinol 100 mg tablet 300 mg PO DAILY 01/04/22 05/18/22 History tizanidine 4 mg tablet 4 mg PO BID PRN Muscle Spasm 01/04/22 05/18/22 History Allergies/Adverse Reactions Allergy/AdvReac Type Severity Reaction Status Date / Time No Known Allergies Allergy Verified 01/12/22 12:04 Current Medications: Generic Name Dose Route Start Last Admin Trade Name Freq PRN Reason Stop Dose Admin Sodium Chloride 1,000 mls @ 50 mls/hr 05/19/22 07:30 05/19/22 08:33 Sodium Chloride 0.9% IV 05/20/22 03:29 Not Given .Q20H ONE Pertinent History/Comorbid Conditions* Medical History (Updated 01/12/22 @ 16:15 by Tammi Pruitt MD) Aortic valve stenosis Mild aortic stenosis Aortic valve stenosis Atherosclerotic heart disease of [place] coronary artery without angina pectoris Carotid artery disease Cervical radiculopathy due to degenerative joint disease of spine Chronic neck pain With associated headaches Coronary artery disease Dyslipidemia Dyslipidemia Essential (primary) hypertension Gout Heatstroke History of colon polyps Hypertension Mesenteric vein thrombosis Rectal bleeding Sinus bradycardia Syncope Surgical History (Updated 04/23/20 @ 13:15 by Rene Duque MD) Abnormal colonoscopy (04/23/20) 2 adenomatous polyps 12/2014 H/O cardiac catheterization Dimension of right coronary artery 2007 Cardiac stent x2 H/O hemorrhoidectomy History of tonsillectomy Family History (Updated 06/09/20 @ 10:42 by Jocy Westfall RN) CAD (coronary artery disease) Brother Denies family history of Diabetes Clotting disorder Dementia Chronic kidney disease (CKD) Suicide Anesthesia complication Bleeding disorder Family history of premature coronary artery disease Lung disease Cancer Stroke Social History Smoking and tobacco status: never smoked Quit status (tobacco): has quit using tobacco Year quit tobacco: Around 1994 Former quit date comment: [id number] history prior to that Alcohol intake: current Alcohol type: beer Household members: spouse Housing: House Pertinent Exam Findings alert, oriented x 3, clear to auscultation bilaterally and regular rate & rhythm Conscious Sedation Assessment PATIENT ASSESSED PRIOR TO SEDATION, WITH NO CHANGE NOTED: Yes AIRWAY EVAL/ANESTHESIA PLAN: normal airway, ASA III, Local Anesthesia, Risks, benefits & alternatives of sedation and/or procedure discussed and Patient agrees to continue as planned ADDITIONAL INFORMATION: Moderate sedation Recommendations Surgery/Procedure today (Peripheral angiogram with possible intervention) Coding Level of Care Code Acute Code for Chg Fwd
--- NOTE | 2022-05-19 10:02 | PC.NURSE ---
Recovery Note Pt arrived post peripheral angiogram. Pt alert and oriented, breathing even and non-labored. Right femoral arterial sheath in place, connected to pressure bag. No signs of bleeding or hematoma. Pedal pulses palpable. Pt placed on bedside cardiac tech. Denies pain at this time. at bedside. Pt and educated on activity and bed rest restrictions.
--- NOTE | 2022-05-19 10:32 | PC.NURSE ---
Pt transferred to CSU room 111-1 via bed. Report called to MICHAEL Martel. Nurse at bedside on arrival on unit.
[2022-05-19] MEDS: sodium chloride 0.9% 1,000 ML 100 ML IV (10:45)
--- NOTE | 2022-05-19 11:13 | PC.NURSE ---
received from cardiac laboratory clerk via bed at 1045.report received.pt alert and awake and oriented x 4.sb on monitor.had been 30's-40's in laboratory clerk.pt states he typically has a very slow heart rate and his doctor is aware.right femoral arterial sheath intact to pressurized system.drsg is dry and intact and no hematoma noted.right leg is warm to touch.pt instructed in activity restrictions s/p femoral artery procedure and instructed to notify staff for any bleeding,pain,sob,or for any concerns at all.pt verb understanding of instructions.
[2022-05-19] MEDS: hyDRALAzine 20 mg/mL INJ 1 mL 10 MG IVP (11:15)
[2022-05-19] MEDS: fentaNYL 50 mcg/mL INJ 2mL IVP (11:20)
[2022-05-19 12:49] LABS: Partial Thromboplastin Time 190.2 SECONDS (23.9-36.7)
[2022-05-19 13:17] LABS: Basophils % 0.4 %; Eosinophils # 0.1 10^3/uL (0.0-0.8); Eosinophils % 1.4 %; Hematocrit 38.1 % (42.0-52.0); Lymphocytes # 2.3 10^3/uL (0.8-4.8); Lymphocytes % 40.4 %; Mean Corpuscular HGB Conc 34.1 g/dL (30.0-36.0); Mean Corpuscular Hemoglobin 32.1 pg (28.0-34.0); Mean Corpuscular Volume 94.1 fl (80-94); Mean Platelet Volume 9.7 fL (7.4-10.4); Monocytes # 0.5 10^3/uL (0.2-0.9); Monocytes % 8.7 %; Neutrophils # 2.77 10^3/uL (1.8-7.7); Neutrophils % 48.9 %; Nucleated Red Blood Cells % 0 %; Platelet Count 173 10^3/cmm (130-400); Red Blood Count 4.05 10^6/uL (4.1-5.3); Red Cell Distribution Width 12.3 % (12.1-15.1); White Blood Count 5.7 10^3/uL (4.0-10.0)
[2022-05-19 13:35] LABS: Anion Gap 12.7 (5-19); Blood Urea Nitrogen 12 mg/dL (8-23); Calcium 9.2 mg/dL (8.5-10.5); Carbon Dioxide 25 mmol/L (22-29); Chloride 108 mmol/L (98-107); Glomerular Filtration Rate 95.8 mL/min (90-130); Glucose 100 mg/dL (65-115); Osmolality Calculated 294 mOsm/kg (285-295); Potassium 3.7 mmol/L (3.5-5.1); Sodium 142 mmol/L (136-145)
--- NOTE | 2022-05-19 14:12 | PC.NURSE ---
at approx 11:15 pt stated he had to urinate.rn noted pt was lifting his head off pillow and bending right leg.rn reminded pt of activity restrictions s/p femoral artery procedure.pt used urinal..and when rn rechecked right groin site,rn noted that drsg was saturated with blood.drsg removed..no active bleeding noted from around sheath site,but hematoma formation noted above and below sheath site.pressure applied.then manager lab staff notified.they came to bedside w/i minutes.pressure held and dr tyson came to bedside.act performed (180) and sheath was pulled by manager lab staff.manual pressure held x approx 40 min.hydralazine given for increased bp and fentanyl given for pain relief.femstop applied by manager lab staff to pressure of 140 mmhg.at 1240 pressure decreased to 120 mm hg.right leg remained warm and pt pulse was doppled.dr tyson came freq to check on pt.vs remained stable.
--- NOTE | 2022-05-19 18:26 | PC.NURSE ---
compression from femstop slowly deflated over past several hours ,and completely deflated at 1635.right groin is bruised but soft to touch.dr tyson has frequently checked on pt.right leg remains warm to touch.no c/o pain or numbness
--- NOTE | 2022-05-19 19:10 | PC.NURSE ---
Patient bedrest is completed. Wilson discontinued at this time. Right groin site assessed, site is soft to touch, bruising surrounding site. Bitaleral pedal pulses are present with doppler. Right leg is warm to touch, the patient denies pain or numbness to extremity. Patient got OOB to chair for nurse to change bedsheets.
[2022-05-20 03:35] VITALS: BP 168/80; PULSE 79; RESP 18; TEMP 37.2; O2SAT 97
[2022-05-20 04:32] LABS: Glomerular Filtration Rate 74.1 mL/min (90-130)
[2022-05-20 05:20] VITALS: PULSE 44
[2022-05-20 07:27] VITALS: BP 179/80; PULSE 53; RESP 18; O2SAT 97
--- NOTE | 2022-05-20 07:50 | PM.DCS ---
Discharge Providers Date of Admission: 05/19/22 10:45 Date of Discharge: May 20, 2022 Attending Provider at Admission: Ildefonso White M.D Attending Provider at Discharge: Ildefonso White M.D Primary Care Provider: Neto Catalan DO Reason for Visit Reason for Visit: Peripheral angiogram with percutaneous interventio Brief History: 71-year-old man with past medical history of hypertension, aortic stenosis who has been having severe lifestyle limiting claudication bilaterally.? He had arterial ultrasound of bilateral lower extremities with ABIs.? ABIs were low with a value of 0.7 bilaterally.? He is here for peripheral angiogram with possible percutaneous intervention. Hospital Course Hospital Course Peripheral angiogram showed severe left SFA disease. He underwent successful revascularization with orbital arthrectomy and balloon angioplasty with DCB. Right common femoral artery and SFA also has severe disease which will be staged for later. After sheath pull from right common femoral artery, patient had significant bleeding however no significant hematoma. Prolonged pressure was held and FemoStop was placed. There was no significant drop in hemoglobin. He stayed hemodynamically stable with no complications. Patient was observed overnight and was discharged home in a stable condition. Physical Exam Narrative: GENERAL: Patient is alert, awake and oriented x3. [] NECK: No jugular vein distension. [] HEENT: No cyanosis. No icterus. No pallor. [] HEART: Regular S1 and S2. No murmur, rub or gallop. [] LUNGS: Clear to auscultate bilaterally. [] ABDOMEN: Soft, nontender and nondistended. Positive bowel sounds. No guarding, rebound or tenderness. [] CENTRAL NERVOUS SYSTEM: Grossly nonfocal. [] EXTREMITIES: No significant edema. Left lower extremity pulses palpable. Urinary Catheter Management: Wilson: Cath Placed During This Visit: yes, but has since been removed by the nurse Reason for Continuing Indwelling Catheter: Required Immobilization for Trauma or Surgery or Anesthesia Urinary Catheter Date of Insertion: 05/19/22 Urinary Catheter Time of Insertion: 12:00 Date Urinary Catheter Removed: 05/19/22 Time Urinary Catheter Discontinued: 19:35 Discharge Data Studies Completed and Pending Pending at discharge Category Date Time Status JUICE WEIGHER request for service Routine Exams 05/19/22 07:30 Taken CBC Auto Diff [Complete Blood Count w/Auto] Routine Lab 05/20/22 07:30 Ordered Laboratory Results WBC 5.7 10^3/uL (4.0-10.0) 05/19/22 13:02 RBC 4.05 10^6/uL (4.1-5.3) L 05/19/22 13:02 Hgb 13.0 g/dL (11.7-16.6) 05/19/22 13:02 Hct 38.1 % (42.0-52.0) L 05/19/22 13:02 MCV 94.1 fl (80-94) H 05/19/22 13:02 MCH 32.1 pg (28.0-34.0) 05/19/22 13:02 MCHC 34.1 g/dL (30.0-36.0) 05/19/22 13:02 RDW 12.3 % (12.1-15.1) 05/19/22 13:02 Plt Count 173 10^3/cmm (130-400) 05/19/22 13:02 MPV 9.7 fL (7.4-10.4) 05/19/22 13:02 Neut % (Auto) 48.9 % 05/19/22 13:02 Lymph % (Auto) 40.4 % 05/19/22 13:02 Montgomery % (Auto) 8.7 % 05/19/22 13:02 Eos % (Auto) 1.4 % 05/19/22 13:02 Baso % (Auto) 0.4 % 05/19/22 13:02 Neut # (Auto) 2.77 10^3/uL (1.8-7.7) 05/19/22 13:02 Lymph # (Auto) 2.3 10^3/uL (0.8-4.8) 05/19/22 13:02 Montgomery # (Auto) 0.5 10^3/uL (0.2-0.9) 05/19/22 13:02 Eos # (Auto) 0.1 10^3/uL (0.0-0.8) 05/19/22 13:02 Baso # (Auto) 0.0 10^3/uL (0.0-0.1) 05/19/22 13:02 Nucleated RBC % (auto) 0 % 05/19/22 13:02 Nucleated RBCs # 0.0 /100WBC 05/19/22 13:02 APTT 89.0 SECONDS (23.9-36.7) H D 05/19/22 13:02 Sodium 142 mmol/L (136-145) 05/19/22 13:02 Potassium 3.7 mmol/L (3.5-5.1) 05/19/22 13:02 Chloride 108 mmol/L (98-107) H 05/19/22 13:02 Carbon Dioxide 25 mmol/L (22-29) 05/19/22 13:02 Anion Gap 12.7 (5-19) 05/19/22 13:02 BUN 12 mg/dL (8-23) 05/19/22 13:02 Creatinine 1.0 mg/dL (0.7-1.2) 05/20/22 03:33 GFR Calculation 74.1 mL/min (90-130) L 05/20/22 03:33 Glucose 100 mg/dL (65-115) 05/19/22 13:02 POC Glucose 114 mg/dL (70-110) H 05/19/22 07:56 Calculated Osmolality 294 mOsm/kg (285-295) 05/19/22 13:02 Calcium 9.2 mg/dL (8.5-10.5) 05/19/22 13:02 Vitals Last Vital Signs Temp 98.9 F 05/20/22 03:35 Pulse 53 L 05/20/22 07:27 Resp 18 05/20/22 07:27 BP 179/80 05/20/22 07:27 Pulse Ox 97 05/20/22 07:27 O2 Del Method 05/20/22 07:27 Discharge Plan Discharge Patient Disposition: Home Prescriptions: New aspirin 81 mg tablet,chewable 81 mg PO DAILY Qty: 90 1RF Continued colchicine 0.6 mg tablet 0.6 mg PO DAILY allopurinol 100 mg tablet 300 mg PO DAILY tizanidine 4 mg tablet 4 mg PO BID PRN (Reason: Muscle Spasm) clopidogrel 75 mg tablet 75 mg PO DAILY Qty: 90 3RF lovastatin 40 mg tablet 40 mg PO DAILY Qty: 90 3RF lisinopril 40 mg tablet See Rx Instructions .ROUTE .COMPLEX Qty: 60 0RF Dose Instruction: Take 1 tablet by mouth once daily Rx Instructions: Take 1 tablet by mouth once daily multivitamin [Multiple Vitamins] Tablet 1 tab PO DAILY Changed carvedilol 12.5 mg tablet 6.25 mg PO BID Qty: 60 5RF Rx Instructions: must administer with a meal/food Held metformin 500 mg tablet 500 mg PO BID Hold Instructions: Resume on 05/22/22. Discontinued amlodipine 5 mg tablet 5 mg PO DAILY Qty: 30 5RF No Action amlodipine 10 mg tablet 10 mg PO DAILY Qty: 90 3RF Discharge Orders: Discharge Order (Routine); Ordered 05/20/22 Ordered By: Ildefonso White Referrals: Tammi Pruitt MD [Physician] - 06/01/22 8:30 am (Your first follow up appointment will be with Avril Welch on 06-01-22 at 8:30 am. Please call [phone] if you have any questions or concerns. Thank you.) Diet: Diabetic Activity: Increase activity as tolerated Patient Instructions: Aspirin (By mouth) (José Miguel Extra Strength, José Miguel Aspirin Children's,..., Peripheral Vascular Angioplasty (DC), Opioid Safety Activity Restrictions/Additional Instructions: Please do not lift more than 10 pounds of weight for the next 5 days Discharge Date/Time: 05/20/22 08:48 Discharge Attestations Time Spent in Discharge Care*: greater than 30 min Quality Metrics Clinical Quality Measures [ No reported AMI, CVA or VTE this stay] Coding Level of Care Code Acute Code for Steven Terrazas
[2022-05-20 07:54] LABS: Basophils % 0.2 %; Eosinophils # 0.1 10^3/uL (0.0-0.8); Eosinophils % 0.5 %; Hematocrit 42.3 % (42.0-52.0); Lymphocytes # 2.8 10^3/uL (0.8-4.8); Lymphocytes % 28.9 %; Mean Corpuscular HGB Conc 33.1 g/dL (30.0-36.0); Mean Corpuscular Hemoglobin 32.1 pg (28.0-34.0); Mean Platelet Volume 9.6 fL (7.4-10.4); Monocytes # 0.8 10^3/uL (0.2-0.9); Monocytes % 8.2 %; Neutrophils # 5.93 10^3/uL (1.8-7.7); Neutrophils % 61.8 %; Nucleated Red Blood Cells % 0 %; Platelet Count 193 10^3/cmm (130-400); Red Blood Count 4.36 10^6/uL (4.1-5.3); Red Cell Distribution Width 12.6 % (12.1-15.1); White Blood Count 9.6 10^3/uL (4.0-10.0)
[2022-05-20] MEDS: aspirin 81 mg EC Tablet PO (08:20)
[2022-05-20] MEDS: clopidogrel 75 mg Tablet PO (08:20)
== END 2022-05-20 08:48 | disposition home or self-care (01) ==
LOC: CCL 07:47 → CSU 16:05
PROVIDERS: PCP Family Medicine; Visit Provider Internal Medicine
DX: I70.223 Atherosclerosis of native arteries of extremities with rest pain, bilateral legs (principal); I10 Essential (primary) hypertension; E78.5 Hyperlipidemia, unspecified; Z87.891 Personal history of nicotine dependence; I25.10 Atherosclerotic heart disease of native coronary artery without angina pectoris
CPT/HCPCS: 36415; 36416; 37224; 37225; 51702; 75625; 75716; 80048; 82565; 82962; 85025; 85347; 85730; 90471; 90686; 96361; 96365; 99152; 99153; C1724; C1725; C1769; C1887; C1894; C2623; J0360; J1644; J2250; J3010; J3490; J7030; Q0163; Q9967

== ENCOUNTER 2022-07-27 16:22 | Outpatient (CLI) | payer MEDICARE, SELFPAY ==
[2022-07-27 17:12] LABS: Basophils % 0.3 %; Eosinophils # 0.1 10^3/uL (0.0-0.8); Hematocrit 42.5 % (42.0-52.0); Hemoglobin 14.4 g/dL (11.7-16.6); Lymphocytes # 2.6 10^3/uL (0.8-4.8); Lymphocytes % 25.2 %; Mean Corpuscular HGB Conc 33.9 g/dL (30.0-36.0); Mean Corpuscular Hemoglobin 31.6 pg (28.0-34.0); Mean Corpuscular Volume 93.4 fl (80-94); Mean Platelet Volume 9.6 fL (7.4-10.4); Monocytes # 1.1 10^3/uL (0.2-0.9); Monocytes % 10.9 %; Neutrophils # 6.46 10^3/uL (1.8-7.7); Neutrophils % 62.2 %; Nucleated Red Blood Cells % 0 %; Platelet Count 236 10^3/cmm (130-400); Red Blood Count 4.55 10^6/uL (4.1-5.3); Red Cell Distribution Width 12.7 % (12.1-15.1); White Blood Count 10.4 10^3/uL (4.0-10.0)
[2022-07-27 17:38] LABS: INR 0.96 (0.83-1.21); Prothrombin Time (Patient) 13.1 Seconds (12.0-15.1)
[2022-07-27 18:02] LABS: Blood Urea Nitrogen 20 mg/dL (8-23); Calcium 9.7 mg/dL (8.5-10.5); Carbon Dioxide 24 mmol/L (22-29); Chloride 106 mmol/L (98-107); Glomerular Filtration Rate 83.7 mL/min (90-130); Glucose 95 mg/dL (65-115); Osmolality Calculated 296 mOsm/kg (285-295); Sodium 142 mmol/L (136-145)
== END 2022-07-27 16:23 | disposition home or self-care (01) ==
PROVIDERS: PCP Family Medicine; Visit Provider Internal Medicine
DX: I73.9 Peripheral vascular disease, unspecified (principal); Z98.890 Other specified postprocedural states; E78.5 Hyperlipidemia, unspecified; I10 Essential (primary) hypertension; I25.10 Atherosclerotic heart disease of native coronary artery without angina pectoris; I65.23 Occlusion and stenosis of bilateral carotid arteries; R53.83 Other fatigue; R58 Hemorrhage, not elsewhere classified
CPT/HCPCS: 80048; 85025; 85610; 99214

== ENCOUNTER 2022-07-28 05:49 | Outpatient (CLI) | payer MEDICARE, SELFPAY ==
[2022-07-28 06:00] VITALS: BP 148/82; PULSE 50; RESP 16; TEMP 37; O2SAT 94; BMI 28.8
--- NOTE | 2022-07-28 06:00 | XACV_ITS ---
Ht: 173 cm Wt: 86 kg BSA: 2.05 m2 Any Known Allergies: No known allergies Gender: Male : 1950 Exam Type: Invasive Peripheral Vascular Procedure(s): Procedure Description: Peripheral Cath Diagnostic Procedure Exam Priority: Routine Abdominal Diagnostic Findings Distal abdominal aorta: Patent. Lower Extremity Diagnostic Findings Right lower extremity: Right common iliac artery is calcified but patent. Right external iliac artery is patent. Right common femoral artery is patent. Right profunda artery is patent. Right SFA is ostially subtotally occluded with very heavy calcification. Profunda supplying the collateral blood flow. Right popliteal artery is patent. Right anterior tibial artery appears to be occluded. Below the knee vessel opacification is not good. But right PT appears patent. Peroneal artery appears patent. INDICATION: Severe lifestyle limiting claudication/ staged revascularization of right lower extremity. Lower Extremity Interventional Findings Procedure detail: We attempted crossing subtotally occluded, heavily calcified right SFA with seeker support catheter and glidewire. We were not able to cross the lesion. Attempt at ultrasound guided right PT access was not successful. At this time we decided to abort procedure. 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 Conclusions Subtotal occlusion of ostial SFA. Unsuccessful attempt at percutaneous revascularization. Recommendations Medical therapy. We will refer him to vascular surgery for possible surgical revascularization vs repeat percutaneous revascularization attempt. Outpatient cardiology follow up in 4 weeks. Hemodynamic Data Phase:Rest AO : 126.0 / 68.0 ( 92.0 ) @ 8:51:00 AM 136.0 / 62.0 ( 89.0 ) @ 9:02:00 AM Access Site Site: Left Femoral artery Sheath Size: 6 Fr Hemost... Success: Unsuccessful Site: Right Pedal Sheath Size: 4 Fr Hemost... Method: TR Band Hemost... Success: Successful Procedure Details Findings Procedure Consent Obtained. Pre-Procedure Time Out. Identified patient by full name and date of as verbalized by the patient/guarantor. Does the consent match the physician's order: Yes. Accurate & Complete Informed Consent: Yes. Inpatient/Outpatient History & Physical on Chart: Yes. If H&P is completed, is and addenduem needed: No. Visualize and Verify Site with Patient/Guarantor: N/A. Relevant Radiology Images available: Yes. The risks, benefits, and alternatives of sedation and/or procedure were discussed by physician. The patient agrees to continue. Procedure started. Correct patient, site and procedure confirmed by cath team. Current diagnosis: PVD. PERRLA. Strong, equal hand rag collector bilaterally. Lungs clear x 5 lobes. IV Site on Arrival: 18 gauge in the right anticubital. IV Fluids: 0.9% NaCl at KVO. 0 mL infused prior to porcelain enamel laborer. Pre Procedural Pulses: right dorsalis pedis was Doppled. Pre Procedural Pulses: left dorsalis pedis was 1+. Pre Procedural Pulses: bilateral posterior tibial was 1+. Oxygen started at 2liters/min via nasal canula. bilateral groins was prepped with chloroprep then draped in the usual sterile fashion. Physician notified. Baseline sample Acquired. HR: 42 BPM. Patient's spouse in CPRU room 4. Dr. White will update at the completion of the procedure. Equipment: Peripheral. Cardiac Cath Pack. ACIST Manifold Kit Model BT 2000. Heparinized Saline (2 units/mL), 1000 mL bag. Physician arrived. Physician scrubbed in. Immediate Pre-Procedure Time Out. Correct Patient: Yes; Correct Procedure: Yes; Correct Site: Yes; Correct Patient Position: Yes; Correct Supplies: Yes; Dried Flammable Prep: Yes; Blood Products Available: N/A;. Lidocaine 1% infiltrated to the left groin. Arterial access obtained with micropuncture set. A 5Fr Fr UF catheter in over the standard J wire. Abdominal aortogram performed in AP @ 10 mL/sec for a total of 30 mL. Stiff Angled 0.035 x 260 glidewire inand advanced down the right lower extremity. UF catheter removed over the exchange glidewire. Sheath upsized to a 6 Fr. Seeker Support catheter inserted over the exchange glidewire. Right external iliac selected and arteriogram with runoff performed @ 10 mL/sec for a total of 30 mL. Side port of sheath attached to Normal Saline flush at KVO to maintain patency. Exchange glidewire out. 0.014 Command guidewire in. Command guidewire out. Exchange glidewire in. Exchange glidewire out. 0.014 Fielder XT guidewire in. Fielder XT guidewire out. Hand injection perfomed of the right common femoral artery. right pedal was prepped with chloroprep then draped in the usual sterile fashion. Ultrasound used to visualize right posterior tibial artery. Lidocaine 1% infiltrated to the right posterior tibial. Venous access obtained with micropuncture pedal access set. Exchange glidewire in. Exchange glidewire out. Hand injection perfomed of the right posterior tibial vein. Sheath upsized to a 6 Fr. Femoral sheath to be pulled upon arrival to CPRU. A TR Band was successful obtaining hemostatsis at the Right Pedal insertion site. TR band placed. Hemostasis obtained. Post Procedure: Pulses reassessed and unchanged. PERRLA. Strong, equal hand rag collector bilaterally. No VTE prophylaxis required. Medication's Wasted: Lidocaine 1% = 4 mL. Medication's Wasted: Nitro = 50 mg. Medication's Wasted: Heparin = 1000 units. Medication's Wasted: Verapamil = 5 mg. Total IV fluids: 85 mL. Post-op diagnosis: Severe right SFA stenosis with unsuccessful attempt at revascularization. Complications: none. Estimated blood loss: 5mL-10mL. Responsiveness - Normal response to verbal stimuli; alert and oriented, PERRLA. Airway - Unaffected, no intervention required; spontaneous ventilation. Circulation: W/N/L, pulses unchanged. Nausea/Vomiting: No. Dr. White scrubbed out. Procedure completed. Patient transferred by bed to CPRU. Vital chart was stopped. Procedure Medications Start: 7:41 AM Stop: 7:41 AM Medication: Versed Amount: 1 mg Route: I.V. Start: 7:41 AM Stop: 7:41 AM Medication: Fentanyl Amount: 50 mcg Route: I.V. Start: 7:46 AM Stop: 7:46 AM Medication: Versed Amount: 1 mg Route: I.V. Start: 8:35 AM Stop: 8:35 AM Medication: Fentanyl Amount: 50 mcg Route: I.V. Start: 8:37 AM Stop: 8:37 AM Medication: Versed Amount: 1 mg Route: I.V. I, the attending physician, have reviewed and verified all procedure medications. Yes, all medications given per verbal order History/Risk Factors Hypertension: Yes Dyslipidemia: Yes Peripheral Arterial Disease (PAD): Yes Obesity: No Renal Disease: No Tobacco Use: Former Prior Interventions PCI: No CABG: No Valve Surgery: No Report Signatures Finalized by Ildefonso White MD on 08/08/2022 09:08 AM
[2022-07-28] MEDS: aspirin 325 mg Tablet PO (07:09)
[2022-07-28] MEDS: diphenhydrAMINE 50 mg Capsule PO (07:10)
--- NOTE | 2022-07-28 07:40 | W.PM.OPSUD ---
Surgery/Procedure H&P Update DATE OF PROCEDURE: July 28, 2022 DATE H&P PERFORMED: 07/27/22 PREOP DIAGNOSIS: Severe lifestyle limiting claudication PRIMARY INDICATION FOR PROCEDURE: Severe lifestyle limiting claudication PLANNED PROCEDURE: Operation Date: 07/28/22 07:00 Proposed Procedures p Peripheral Angiogram 12234,I73.9, Z98.890, M79.606(Not Applicable) - Ildefonso White M.D Percutaneous intervention PATIENT REASSESSED PRIOR TO SEDATION, WITH NO CHANGE NOTED: Yes PHYSICAL EXAM: alert, oriented x 3, clear to auscultation bilaterally and regular rate & rhythm AIRWAY EVAL/ANESTHESIA PLAN: normal airway, ASA III, Local Anesthesia, Risks, benefits & alternatives of sedation and/or procedure discussed and Patient agrees to continue as planned ADDITIONAL INFORMATION: Moderate sedation
--- NOTE | 2022-07-28 08:59 | PC.NURSE ---
Received pt from [facility] post peripheral. Pt has currently a 6F sheath in left groin. laboratory equipment installer nurses are currently pulling sheath. Pt also had a TR band on the right PT site. All pulses palpable as to prior to procedure. Pt placed on monitor and will be monitored per protocol. Pt alert and oriented x3. Pt also complains of no pain. Pt will recover in CPRU for 3o mins as sheath is pulled and then transferred to CSU 112-2.
[2022-07-28 09:00] VITALS: BP 169/86; PULSE 41; RESP 13; O2SAT 94
[2022-07-28 09:15] VITALS: BP 139/68; PULSE 41; RESP 15; O2SAT 96
[2022-07-28 09:30] VITALS: BP 139/71; PULSE 44; RESP 16; O2SAT 96
[2022-07-28 09:45] VITALS: BP 167/74; PULSE 43; RESP 15; O2SAT 96
--- NOTE | 2022-07-28 09:45 | PC.NURSE ---
Successful sheath pull. Pt being transferred to CSU.
== END 2022-07-28 18:30 | disposition home or self-care (01) ==
LOC: CCL 05:58 → CSU 10:01
PROVIDERS: PCP Family Medicine; Visit Provider Internal Medicine
DX: I73.9 Peripheral vascular disease, unspecified (principal); M79.606 Pain in leg, unspecified; Z98.890 Other specified postprocedural states; I77.89 Other specified disorders of arteries and arterioles; I10 Essential (primary) hypertension; E78.5 Hyperlipidemia, unspecified; Z87.891 Personal history of nicotine dependence
CPT/HCPCS: 36415; 75625; 75710; 96361; 96365; 99152; 99153; C1769; C1887; C1894; J1644; J2250; J3010; J3490; J7030; Q0163; Q9967

== ENCOUNTER → 2022-08-04 10:15 | Outpatient (BNVA) | payer MEDICARE, SELFPAY | PROVIDERS: PCP Family Medicine; Visit Provider Nurse Practitioner Family | DX: I73.9 Peripheral vascular disease, unspecified (principal); Z98.890 Other specified postprocedural states; Z79.82 Long term (current) use of aspirin | CPT/HCPCS: 36415; 80048; 99214 ==

== ENCOUNTER → 2022-08-29 11:47 | Outpatient (BNVA) | payer MEDICARE, SELFPAY | PROVIDERS: PCP Family Medicine; Visit Provider Family Medicine | DX: Z12.5 Encounter for screening for malignant neoplasm of prostate (principal) | CPT/HCPCS: G0103 ==

== ENCOUNTER → 2023-02-02 13:46 | Outpatient (BNVA) | payer MEDICARE, SELFPAY | PROVIDERS: PCP Family Medicine; Visit Provider Internal Medicine Cardiovascular Disease | DX: I25.10 Atherosclerotic heart disease of native coronary artery without angina pectoris (principal); E78.5 Hyperlipidemia, unspecified; I10 Essential (primary) hypertension; I73.9 Peripheral vascular disease, unspecified; Z98.890 Other specified postprocedural states; C25.9 Malignant neoplasm of pancreas, unspecified | CPT/HCPCS: 99214 ==

== ENCOUNTER 2023-04-05 12:44 | Oncology outpatient (recurring) (ONCR) | payer MEDICARE, SELFPAY ==
[2023-03-30 15:48] LABS: Basophils % 0.3 %; Eosinophils # 0.2 10^3/uL (0.0-0.8); Eosinophils % 2.6 %; Hematocrit 38.2 % (37-53); Lymphocytes # 1.8 10^3/uL (0.8-4.8); Lymphocytes % 27.5 %; Mean Corpuscular HGB Conc 34.8 g/dL (30-55); Mean Corpuscular Hemoglobin 32.9 pg (27-33); Mean Corpuscular Volume 94.6 fl (82-101); Mean Platelet Volume 9.2 fL (7.4-10.4); Monocytes # 0.6 10^3/uL (0.2-0.9); Monocytes % 8.8 %; Neutrophils % 60.5 %; Nucleated Red Blood Cells % 0 %; Platelet Count 211 10^3/cmm (157-399); Red Blood Count 4.04 10^6/uL (3.85-5.65); Red Cell Distribution Width 12.5 % (12.1-15.1); White Blood Count 6.61 10^3/uL (3.29-11.43)
[2023-03-30 16:15] LABS: Alanine Aminotransferase 29 U/L (0-41); Albumin Level 4.4 g/dL (3.5-5.2); Alkaline Phosphatase 95 U/L (40-130); Anion Gap 15.2 (5-19); Aspartate Amino Transferase 18 U/L (0-40); Blood Urea Nitrogen 28 mg/dL (8-23); Calcium 9.3 mg/dL (8.5-10.5); Carbon Dioxide 26 mmol/L (22-29); Chloride 108 mmol/L (98-107); Globulin 2.2 g/dL (1.3-4.6); Glomerular Filtration Rate 73.9 mL/min (90-130); Glucose 192 mg/dL (65-115); Osmolality Calculated 311 mOsm/kg (285-295); Potassium 4.2 mmol/L (3.5-5.1); Sodium 145 mmol/L (136-145); Testosterone Total 194.8 ng/dL (193-740); Thyroid Stimulating Hormone 1.17 uIU/mL (0.27-4.20); Total Bilirubin 0.8 mg/dL (0.15-1.2); Total Protein 6.6 g/dL (6.6-8.7)
--- NOTE | 2023-04-06 08:39 | N.ONRAD NP_ITS ---
Radiation Oncology New Patient Visit Patient: Jett Perez MR#: [id number] : 1950> Age: 72> Sex: Male> Dictated by: Gurpreet Courtney Date of Service: 04/05/2023 Referring Physician(s) : Tip Boone MD Diagnosis: St IIIA(T1c, N0 M0) G3 G.S. 4 + 3 adenocarcinoma of the prostate s/p Bx 01/03/2023. Prostate cancer C61 Radiotherapy to date: Summary > No prior radiation therapy. Chief Complaint / History of Present Illness: 72 yo active asymptomatic man with first ever PSA 08/29/2022 21.7. Recheck 10/27/2022 16.91. Chronic stable q 2 hr nocturia, good stream, nearly absent erections and normal bowel function. 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 I-PSS score is 16. MRI 10/27/2022 11 mm PI-RADS lesion left and 10 mm PI-RADS lesion on right. No adenopathy. Biopsy 01/03/2023 14 biopsies obtained. 6 were involved: 1 G.S. 3 + 3, 4 G.S. 3 + 4, 1 G.S. 4 + 3. Prolaris score 2.6 showing 7.8% 10 year risk of mortality with conservative management, 7.1 % 10 year risk of metastatic disease with single modality treatment, 2.9 % absolute risk reduction with addition of ADT to RT. Bone scan 02/20/2023 DJD with no metastatic lesions seen. Repeat PSA 03/30/2023 20.91 Current Medications: allopurinol 300 mg PO DAILY, amlodipine 10 mg PO DAILY, hydralazine 25 mg PO TID, lisinopril Take 1 tablet by mouth once daily, lovastatin 40 mg PO DAILY, tamsulosin 0.4 mg PO DAILY Allergies: tizanidine Allergy- vision loss Medical History: No previous radiation therapy.peripheral arterial disease with history of revascularization, Mesenteric vein thrombosis, Dyslipidemia, Essential (primary) hypertension, Carotid artery disease, Aortic valve stenosis, Atherosclerotic heart disease of [place] coronary artery without angina pectoris, History of colon polyps, Chronic neck pain- With associated headaches, Cervical radiculopathy due to degenerative joint disease of spine, Rectal bleeding, Sinus bradycardia, Dyslipidemia, Syncope, Heatstroke, Aortic valve stenosis- Mild aortic stenosis, Gout, Coronary artery disease, Hypertension Surgical History: History of tonsillectomy, Abnormal colonoscopy (04/23/20)- 2 adenomatous polyps 12/2014, H/O hemorrhoidectomy, H/O cardiac catheterization- Dimension of right coronary artery 2007- Cardiac stent x2 Family History: Brother, CAD (coronary artery disease) Social History: 40 years. [employer] to 74. 3 children all here. 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 Smoking and tobacco/nicotine status: never used tobacco/nicotine, Quit status (tobacco/nicotine): has quit using Year quit tobacco: Around 1994 Former quit date comment: [id number] history prior to that, Alcohol intake: current Alcohol type: beer, Substance/Drug Use: never, Household members: spouse , Housing: House Vital Signs: Performed on 04/05/2023 1:11 PM Height - 68 in, Weight - 190.6 lbs, BMI - 28.981 kg/m2 (high), Temperature - 97.8 f, Pulse - 56 /min (low), Respiration - 16 /min, O2 Sat - 98 %, Pain - 0, Fatigue - 0 and BP - 134/ 61 mm(hg)(/low). Physical Exam: Robust in NAD. No palpable adenopathy. No pedal edema. Rectal exam smooth symmetric prostate with no nodularity masses or ridging. Performance Status: 0 Imaging: See HPI Impression: St IIIA (T1c NO Mo) G.S. 4 + 3 adenocarcinoma of the prostate. Given his presentation and MRI scan findings revealing no adenopathy, I did not feel staging PSMA would be needed. Good candidate for definitive radiation. He has marginal benefit from ADT. He would still like to pursue ADT with radiation. Plan on ADT now and simulate for treatment in 4 to 6 weeks. Plan on 70 Gy in 28 fractions to prostate +/- regional edgar coverage. Signed by: 04/06/2023 8:38:29 AM <<Signature on File>> Time spent with patient: CPT Code: CPT Code:
== END 2023-04-16 23:59 | disposition home or self-care (01) ==
PROVIDERS: Internal Medicine Hematology & Oncology; PCP Family Medicine; Visit Provider Family Medicine
DX: C61 Malignant neoplasm of prostate (principal); I73.9 Peripheral vascular disease, unspecified; I25.10 Atherosclerotic heart disease of native coronary artery without angina pectoris; I10 Essential (primary) hypertension
CPT/HCPCS: 36415; 80053; 84153; 84403; 84443; 85025; 99024; 99204; 99205

== ENCOUNTER 2023-04-19 14:59 | Oncology outpatient (recurring) (ONCR) | payer MEDICARE, SELFPAY ==
[2023-04-19] MEDS: leuprolide 22.5 mg Kit IM (16:41)
== END 2023-05-17 23:59 | disposition home or self-care (01) ==
PROVIDERS: PCP Family Medicine; Visit Provider Family Medicine
DX: C61 Malignant neoplasm of prostate (principal); I73.9 Peripheral vascular disease, unspecified; I25.10 Atherosclerotic heart disease of native coronary artery without angina pectoris; I10 Essential (primary) hypertension; C25.9 Malignant neoplasm of pancreas, unspecified; R53.83 Other fatigue; Z79.899 Other long term (current) drug therapy
CPT/HCPCS: 96402; 99214; J9217

== ENCOUNTER 2023-04-21 12:32 | Outpatient (CLI) | payer MEDICARE, SELFPAY ==
--- NOTE | 2023-04-21 12:36 | CT_ITS ---
WS: [id number] CT CHEST, ABDOMEN AND PELVIS WITH CONTRAST HISTORY: ELEVATED PSA/HX PANCREATIC CANCER TECHNIQUE: Contiguous 5 mm axial imaging performed through the chest, abdomen and pelvis with IV cont rast, oral contrast has been provided. Coronal and sagittal reformats chest. Coronal and sagittal ref ormats through the abdomen and pelvis. All CT scans at [facility] use at least one of these d ose optimization techniques: automated exposure control; mA and/or kV adjustment per patient size (in cludes targeted exams where dose is matched to clinical indication); or iterative reconstruction. CONTRAST: Omnipaque 350; 100 mL IV. DLP: 1020.10 mGy.cm COMPARISON: 10/20/2019, 10/15/[address]: No pulmonary mass or nodule. No pneumonia. Heart size is normal. No pericardial or pleural effusions. Mild atherosclerosis aorta. Normal size pulmonary artery. No mediastinal or hilar lymph no dania. Small hiatal hernia. Abdomen CT: Hepatic steatosis. There is a large lobulated mass centered along the falciform ligament measuring 5.8 x 7.6 cm. On the early arterial imaging there is increased peripheral globular enhancem ent. This mass does not fill in on the delayed imaging. This mass has been previously described and d oes not appear to be significantly increased in size since 2019. I favor this is probably an atypical hemangioma. Gallbladder is negative. Normal RIGHT adrenal gland. LEFT adrenal adenoma 1.1 cm. No roque creatic abnormality. No bile duct dilatation or pancreatic duct dilatation. No renal obstruction or m ass. Atherosclerosis aorta. Mild mesenteric artery calcification. No adenopathy or ascites. Pelvic CT: Extensive calcification continues into the iliac arteries. Prostate gland is only mildly e nlarged and heterogeneous. There is mild diffuse bladder wall thickening and the bladder is slightly over distended suggesting a bladder outlet obstruction. No free fluid or adenopathy. No definite osteoblastic bone disease identified. There is slight increase density within several of the midthoracic vertebral bodies which I believe is degenerative. IMPRESSION: 1. No pulmonary metastatic nodules or masses. 2. Large mass centered along the falciform ligament with peripheral enhancement. No filling in on e delayed imaging. This mass has been present since 2019. There is been no interval imaging. Due to l sven-term stability this is probably an atypical hepatic hemangioma. 3. No pancreatic mass. 4. No ascites or adenopathy. 5. Mild heterogeneity of the prostate gland. 6. Mild overdistention of the urinary bladder. Consider partial outlet obstruction secondary to pros frank gland enlargement. 7. No osteoblastic bone disease identified. Bone scan imaging may be more sensitive for metastatic p rostate carcinoma involvement.
[2023-04-21] MEDS: iohexol 350 mg/mL 500 mL Btl (per mL) PO (13:52)
[2023-04-21] MEDS: iohexol 350 mg/mL 500 mL Btl (per mL) IV (13:54)
== END 2023-04-21 12:33 | disposition home or self-care (01) ==
LOC: RAD 12:32
PROVIDERS: PCP Family Medicine; Visit Provider Nurse Practitioner Family
DX: R97.20 Elevated prostate specific antigen [PSA] (principal); C25.9 Malignant neoplasm of pancreas, unspecified; R19.00 Intra-abdominal and pelvic swelling, mass and lump, unspecified site; N32.89 Other specified disorders of bladder; N42.9 Disorder of prostate, unspecified
CPT/HCPCS: 71260; 74177; Q9967

== ENCOUNTER 2023-06-12 12:48 | Oncology outpatient (recurring) (ONCR) | payer MEDICARE, SELFPAY | END 2023-06-15 23:59 | disposition home or self-care (01) | PROVIDERS: PCP Family Medicine; Visit Provider Family Medicine | DX: Z51.0 Encounter for antineoplastic radiation therapy (principal); C61 Malignant neoplasm of prostate | CPT/HCPCS: 77300; 77301; 77334; 77338; 77470 ==

== ENCOUNTER 2023-07-05 11:06 | Oncology outpatient (recurring) (ONCR) | payer MEDICARE, SELFPAY ==
--- NOTE | 2023-06-20 12:02 | ONCRAD TMN_ITS ---
Radiation Oncology Weekly Treatment Management Patient: Jett Perez MR#: [id number] : 1950 Attending Physician: Dr. Janeen Palma Date of Service: 06/20/2023 Fractions: 2 out of 28 Referring Physician(s) : Ady Frausto M.D. Diagnosis: C61 - Malignant neoplasm of prostate, Diagnosed 02/14/2023 (Active) Radiotherapy to date: Course: prostate/sv, Treatment Site: Prostate 70Gy, Ref. ID: [id number], Energy: 15X, Dose/Fx (cGy): 250, #Fx: 2 / , Dose Correction (cGy): 0, Total Dose Delivered (cGy): 500, Start Date: 06/19/2023, Elapsed Days: 1 Reason for visit: The patient is being seen today as part of their regularly scheduled weekly on treatment visits to assess for acute toxicities from radiotherapy. Review of Systems: Patient has had no changes Vital Signs: Performed on 06/20/2023 11:36 AM BMI - 28.981 kg/m2 (high), Height - 68 in, Weight - 190.6 lbs, Temperature - 97.8 f, Pulse - 85 /min, Respiration - 18 /min, O2 Sat - 95 % (low), Pain - 5, Fatigue - 0 and BP - 125/ 67 mm(hg). Physical Exam: Patient is in good spirits. Respiratory rate in color is good Imaging: Radiation therapy imaging related to accurate target localization (i.e. KV, MV and CBCT) was reviewed. Appropriate changes, if any, were made to ensure treatment accuracy. Plan: Will continue with treatments as planned. I reviewed the risks and side effects again. He had no questions or concerns. Signed by: Dr. Janeen Palma 06/20/2023 12:00:16 PM
[2023-06-21 11:30] LABS: Basophils % 0.3 %; Eosinophils # 0.1 10^3/uL (0.0-0.8); Eosinophils % 1.6 %; Hematocrit 37.7 % (37-53); Lymphocytes # 2.1 10^3/uL (0.8-4.8); Lymphocytes % 26.1 %; Mean Corpuscular HGB Conc 34.2 g/dL (30-55); Mean Corpuscular Hemoglobin 32.1 pg (27-33); Mean Corpuscular Volume 93.8 fl (82-101); Mean Platelet Volume 9.4 fL (7.4-10.4); Monocytes # 0.8 10^3/uL (0.2-0.9); Monocytes % 9.7 %; Neutrophils # 4.93 10^3/uL (1.8-7.7); Neutrophils % 61.9 %; Nucleated Red Blood Cells % 0 %; Platelet Count 231 10^3/cmm (157-399); Red Blood Count 4.02 10^6/uL (3.85-5.65); Red Cell Distribution Width 13.1 % (12.1-15.1); White Blood Count 7.96 10^3/uL (3.29-11.43)
[2023-06-21 12:01] LABS: Alanine Aminotransferase 37 U/L (0-41); Albumin Level 4.5 g/dL (3.5-5.2); Alkaline Phosphatase 110 U/L (40-130); Anion Gap 15.1 (5-19); Aspartate Amino Transferase 25 U/L (0-40); Blood Urea Nitrogen 22 mg/dL (8-23); Calcium 8.9 mg/dL (8.5-10.5); Carbon Dioxide 23 mmol/L (22-29); Chloride 102 mmol/L (98-107); Globulin 2.7 g/dL (1.3-4.6); Glomerular Filtration Rate 83.4 mL/min (90-130); Glucose 91 mg/dL (65-115); Osmolality Calculated 285 mOsm/kg (285-295); Potassium 4.1 mmol/L (3.5-5.1); Sodium 136 mmol/L (136-145); Testosterone Total 2.5 ng/dL (193-740); Total Bilirubin 0.9 mg/dL (0.15-1.2); Total Protein 7.2 g/dL (6.6-8.7)
--- NOTE | 2023-06-27 11:48 | ONCRAD TMN_ITS ---
Radiation Oncology Weekly Treatment Management Patient: Jett Perez MR#: [id number] : 1950 Attending Physician: Cem Reid Date of Service: 06/27/2023 Referring Physician(s) : Ady Frausto M.D. Diagnosis: C61 - Malignant neoplasm of prostate, Diagnosed 02/14/2023 (Active) Radiotherapy to date: Course: prostate/sv, Treatment Site: Prostate 70Gy, Ref. ID: [id number], Energy: 15X, Dose/Fx (cGy): 250, #Fx: , Dose Correction (cGy): 0, Total Dose Delivered (cGy): 1,750, Start Date: 06/19/2023, Elapsed Days: 8 Reason for visit: The patient is being seen today as part of their regularly scheduled weekly on treatment visits to assess for acute toxicities from radiotherapy. Review of Systems: Patient complains of burning on urination. He notes hesitancy and reports that he sits down to pass water. He denies fever or chills but reports hot flashes. He jokes that the next thing he will be doing is wearing a dress. Vital Signs: Performed on 06/27/2023 11:17 AM BMI - 28.981 kg/m2 (high), Height - 68 in, Weight - 190.6 lbs, Temperature - 97.7 f, Pulse - 60 /min, Respiration - 16 /min, O2 Sat - 97 %, Pain - 0, Fatigue - 0 and BP - 138/ 71 mm(hg). Physical Exam: Alert and oriented male appearing his stated age. Patient amatory without assistance. Imaging: Radiation therapy imaging related to accurate target localization (i.e. KV, MV and CBCT) was reviewed. Appropriate changes, if any, were made to ensure treatment accuracy. Plan: Urinalysis today to rule out urinary tract infection. Patient will be notified by phone of the results. We also discussed the potential use of Azo. Antibiotics will be initiated if the UA is positive. Plan to continue prescribed treatment. Signed by: Cem Reid 06/27/2023 11:46:29 AM
[2023-06-27 12:15] LABS: Bilirubin Urine Neg (Negative); Blood Urine Neg (Negative); Glucose Urine UA Norm (Normal); Ketones Urine Negative (Negative); Leukocyte Esterase Urine Negative (Negative); Nitrate Urine Negative (Negative); Protein Urine Neg (Negative); Specific Gravity, Urine 1.025 (1.005-1.030); Urine Appearance Clear (CLEAR); Urine Color Yellow (Yellow); Urobilinogen Urine Norm (Negative); pH Urine 6 (5-7)
[2023-06-27 12:36] LABS: Add Urine Culture? No; Mucus Urine TRACE /hpf; RBC Urine 0-4 /hpf (0-2); WBC Urine 0-4 /hpf (0-5)
--- NOTE | 2023-07-04 12:36 | ONCRAD TMN_ITS ---
Radiation Oncology Weekly Treatment Management Patient: Jett Perez MR#: [id number] : 1950 Attending Physician: Gurpreet Courtney Date of Service: 07/04/2023 Referring Physician(s) : Ady Frausto M.D. Diagnosis: C61 - Malignant neoplasm of prostate, Diagnosed 02/14/2023 (Active) Radiotherapy to date: Course: prostate/sv, Treatment Site: Prostate 70Gy, Ref. ID: [id number], Energy: 15X, Dose/Fx (cGy): 250, #Fx: , Dose Correction (cGy): 0, Total Dose Delivered (cGy): 3,000, Start Date: 06/19/2023, Elapsed Days: 15 Reason for visit: The patient is being seen today as part of their regularly scheduled weekly on treatment visits to assess for acute toxicities from radiotherapy. Review of Systems: Burning dysuria not responsive to OTC AZO (92.5 Mg) Also has [place] and 3 x nocturia . Not on Flomax now. Bowels slow and taking fiber for this. Vital Signs: Performed on 07/04/2023 11:06 AM BMI - 29.133 kg/m2 (high), Height - 68 in, Weight - 191.6 lbs, Temperature - 97.7 f, Pulse - 56 /min (low), Respiration - 16 /min, O2 Sat - 98 %, Pain - 0, Fatigue - 3 and BP - 125/ 64 mm(hg)(/low). Physical Exam: omitted Imaging: Radiation therapy imaging related to accurate target localization (i.e. KV, MV and CBCT) was reviewed. Appropriate changes, if any, were made to ensure treatment accuracy. Plan: Fair tolerance of treatment Will increase support with pyridium 200 mg TID and tamsulosin 0.4 mg BID. Both called into [facility]. Signed by: Gurpreet Courtney 07/04/2023 12:35:55 PM
== END 2023-07-05 23:59 | disposition home or self-care (01) ==
PROVIDERS: Internal Medicine; Radiology Radiation Oncology; PCP Family Medicine; Visit Provider Radiology Radiation Oncology
DX: C61 Malignant neoplasm of prostate (principal); Z51.0 Encounter for antineoplastic radiation therapy
CPT/HCPCS: 36415; 77336; 77385; 80053; 81001; 84153; 84403; 85025; 99024; 99214

== ENCOUNTER 2023-07-13 11:30 | Oncology outpatient (recurring) (ONCR) | payer MEDICARE, SELFPAY ==
--- NOTE | 2023-07-11 11:27 | ONCRAD TMN_ITS ---
Radiation Oncology Weekly Treatment Management Patient: Chris Estrada MR#: [id number] : 1950> Attending Physician: Dr. Janeen Palma Date of Service: 07/11/2023 Fractions: 17 out of 28 Referring Physician(s) : Ady Frausto M.D. Diagnosis: C61 - Malignant neoplasm of prostate, Diagnosed 02/14/2023 (Active) Radiotherapy to date: Course: prostate/sv, Treatment Site: Prostate 70Gy, Ref. ID: [id number], Energy: 15X, Dose/Fx (cGy): 250, #Fx: 17 / 28, Dose Correction (cGy): 0, Total Dose Delivered (cGy): 4,250, Start Date: 06/19/2023, Elapsed Days: 22 Reason for visit: The patient is being seen today as part of their regularly scheduled weekly on treatment visits to assess for acute toxicities from radiotherapy. Review of Systems: Patient's dysuria has improved with Azo and jarrod Vital Signs: Performed on 07/11/2023 11:23 AM BMI - 29.437 kg/m2 (high), Height - 68 in, Weight - 193.6 lbs, Temperature - 97.7 f, Pulse - 58 /min (low), Respiration - 18 /min, O2 Sat - 97 %, Pain - 0, Fatigue - 0 and BP - 115/ 50 mm(hg)(/low). Physical Exam: He is in no apparent distress with no acute changes Imaging: Radiation therapy imaging related to accurate target localization (i.e. KV, MV and CBCT) was reviewed. Appropriate changes, if any, were made to ensure treatment accuracy. Plan: Will continue with his treatments as planned. He will be finished in 2 weeks. He is getting another Firmagon shot tomorrow. Signed by: Dr. Janeen Palma 07/11/2023 11:26:26 AM
[2023-07-13 11:55] VITALS: BP 109/69; PULSE 56; RESP 16; TEMP 36.9; O2SAT 93
[2023-07-13] MEDS: leuprolide 22.5 mg Kit IM (11:58)
== END 2023-07-13 23:59 | disposition home or self-care (01) ==
PROVIDERS: PCP Family Medicine; Visit Provider Radiology Radiation Oncology
DX: C61 Malignant neoplasm of prostate (principal); Z53.9 Procedure and treatment not carried out, unspecified reason; Z51.11 Encounter for antineoplastic chemotherapy; Z51.0 Encounter for antineoplastic radiation therapy; Z79.818 Long term (current) use of other agents affecting estrogen receptors and estrogen levels
CPT/HCPCS: 77336; 77385; 96402; 99024; J9217

== ENCOUNTER 2023-07-14 06:00 | Oncology outpatient (recurring) (ONCR) | payer MEDICARE, SELFPAY | END 2023-07-16 23:59 | disposition home or self-care (01) | PROVIDERS: PCP Family Medicine; Visit Provider Radiology Radiation Oncology | DX: C61 Malignant neoplasm of prostate; C25.9 Malignant neoplasm of pancreas, unspecified; Z51.0 Encounter for antineoplastic radiation therapy | CPT/HCPCS: 77385 ==

== ENCOUNTER 2023-08-04 08:36 | Emergency (ER) | payer MEDICARE, SELFPAY ==
[2023-08-04 08:54] VITALS: BP 132/70; PULSE 74; RESP 15; TEMP 36.9; O2SAT 95; BMI 28.8
--- NOTE | 2023-08-04 09:30 | ED_ITS ---
HPI - Male Genitourinary General: Chief complaint: Urogenital-Male Stated complaint: urination adn bowel trouble Time Seen by Provider: 08/04/23 09:14 History of Present Illness: Patient presents to the ER with complaints of extreme dysuria. Patient is had this for over the last week. Patient is currently undergoing radiation for prostate cancer. His last radiation dose was approximately 9 days ago. Patient has been on Pyridium and Flomax during this time. Patient says he can start get lightheaded dizzy when he stood up so he stopped both it was about 3 days ago. Patient denies any purulent discharge, hematuria, Review of Systems General: Reports: 10 or more systems reviewed and unremarkable except in HPI and below PFSH ED PFSH: Medical History Peripheral arterial disease with history of revascularization Mesenteric vein thrombosis Dyslipidemia Essential (primary) hypertension Carotid artery disease Aortic valve stenosis Atherosclerotic heart disease of [place] coronary artery without angina pectoris History of colon polyps Chronic neck pain With associated headaches Cervical radiculopathy due to degenerative joint disease of spine Rectal bleeding Sinus bradycardia Dyslipidemia Syncope Heatstroke Aortic valve stenosis Mild aortic stenosis Gout Coronary artery disease Hypertension Surgical History History of tonsillectomy Abnormal colonoscopy (04/23/20) 2 adenomatous polyps 12/2014 H/O hemorrhoidectomy H/O cardiac catheterization Dimension of right coronary artery 2007 Cardiac stent x2 Family History Brother CAD (coronary artery disease) Denies family history of Diabetes Clotting disorder Dementia Chronic kidney disease (CKD) Suicide Anesthesia complication Bleeding disorder Family history of premature coronary artery disease Lung disease Cancer Stroke Social History Smoking and tobacco/nicotine status: never used tobacco/nicotine Quit status (tobacco/nicotine): has quit using Year quit tobacco: Around 1994 Former quit date comment: [id number] history prior to that Alcohol intake: current Alcohol type: beer Substance/Drug Use: never Household members: spouse Housing: House Physical Exam Const: COMMON NORMALS: no acute distress, average body habitus, patient oriented x3, no limitations, healthy appearing, alert and well nourished HENMT: COMMON NORMALS: normocephalic, atraumatic, hearing grossly normal bilaterally, external ears normal, Normal external nose present, moist oral mucous membranes and oropharynx normal HEAD & SCALP: normocephalic and atraumatic NOSE: Normal external nose present EXTERNAL EAR: Yes external ears normal Neck/C-Spine: COMMON NORMALS: no JVD Chest: COMMONS NORMALS: normal inspection of the chest and normal palpation of entire chest wall Resp: COMMON NORMALS: normal respiratory effort, No retractions, No use of accessory muscles and clear to auscultation bilaterally AUSCULTATION: clear to auscultation bilaterally Cardio: COMMON NORMALS: no JVD, regular rate, regular rhythm, S1 normal heart sound present, S2 normal heart sound present, No gallops present (Cardio), No clicks present (Cardio) and No murmurs present (Cardio) RATE: regular rate RHYTHM: regular rhythm HEART SOUNDS: S1 normal heart sound present and S2 normal heart sound present GI: COMMON NORMALS: Normal to inspection, nondistended, normoactive bowel sounds present, Soft to palpation, non-tender, No hepatosplenomegaly present and no masses PALPATION: Yes Soft to palpation and Yes No hepatosplenomegaly pres ent Neuro: COMMON NORMALS: patient oriented x3 SENSORIUM/ORIENTATION: Yes alert Course Vital Signs: Vital signs: Vital Signs Temperature 98.5 F 08/04/23 08:54 Pulse Rate 74 08/04/23 08:54 Respiratory Rate 15 08/04/23 08:54 Blood Pressure 132/70 08/04/23 08:54 Pulse Oximetry 95 08/04/23 08:54 Oxygen Delivery Me thod Room Air 08/04/23 08:54 MDM - Male Medical Decision Making Urinalysis was obtained patient is on Pyridium so some test were performed. However urine did show multiple red blood cells 3+ blood, and a few white blood cells. Patient says he is willing to try anything for this burning. Patient says the Pyridium does not help. We will place the patient on Cipro and try to get him some Uro-Jet lidocaine to self administer. Patient be discharged home to follow-up with his PCP and/or urologist. Differential Diagnosis Likely urethritis; Unlikely urinary tract infection, priapism, epididymitis, genital herpes simplex, prostatitis, acute retention of urine or inguinal hernia Medical Records I reviewed the patient's medical records. Lab Data I reviewed the patient's lab results. Laboratory Results Urine Color Dark yellow (Yellow) 08/04/23 09:12 Urine Appearance Clear (CLEAR) 08/04/23 09:12 Urine pH 6 (5-7) 08/04/23 09:12 Ur Specific [place] 1.015 (1.005-1.030) 08/04/23 09:12 Urine Protein Not tested (Negative) 08/04/23 09:12 Urine Glucose (UA) Norm (Normal) 08/04/23 09:12 Urine Ketones Negative (Negative) 08/04/23 09:12 Urine Blood 3+ (Negative) H 08/04/23 09:12 Urine Nitrate Not tested (Negative) A 08/04/23 09:12 Urine Bilirubin Not tested (Negative) 08/04/23 09:12 Prot Sulfosalicylic Acd Negative (Negative) 08/04/23 09:12 Urine Urobilinogen Not tested mg/dL (Negative) A 08/04/23 09:12 Ur Leukocyte Esterase Negative (Negative) 08/04/23 09:12 Urine RBC 80-100 /hpf (0-2) H 08/04/23 09:12 Urine WBC 0-4 /hpf (0-5) H 08/04/23 09:12 Ur Squamous Epith Cells None /hpf (0-5) 08/04/23 09:12 Amorphous Sediment Not Reportable 08/04/23 09:12 Urine Bacteria None /hpf (NONE) 08/04/23 09:12 Urine Mucus None /hpf 08/04/23 09:12 All radiology interpretation(s) finalized by discharge Discharge Plan Discharge Patient Disposition: Home Clinical Impression: Urethritis, Acute radiation cystitis Condition: Stable Prescriptions: New ciprofloxacin HCl 500 mg tablet 500 mg PO Q12H Qty: 20 0RF lidocaine HCl 2 % jelly in applicator 1 applic intra-urethral 6XD PRN (Reason: pain) Qty: 125 0RF No Action venlafaxine [Effexor XR] 37.5 mg capsule,extended release 24hr 37.5 mg PO DAILY Qty: 30 2RF lovastatin 40 mg tablet 40 mg PO DAILY Qty: 90 3RF amlodipine 10 mg tablet 10 mg PO DAILY Qty: 90 3RF hydralazine 25 mg tablet 25 mg PO TID Qty: 270 3RF phenazopyridine [Pyridium] 200 mg tablet 200 mg PO TID Qty: 90 0RF allopurinol 100 mg tablet 100 mg PO DAILY lisinopril 40 mg tablet 40 mg PO DAILY Discharge Orders: Discharge ED (Routine); Ordered 08/04/23 Ordered By: Lucian Workman Referrals: Neto Catalan DO [Primary Care Provider] - 1 week Patient Instructions: Nonspecific Urethritis in Men (ED) Activity Restrictions/Additional Instructions: Your urinalysis was skewed because of the Azo use. It did show you have a a lot of blood in your urine, this is felt to possibly be from the radiation. Please use your medicines as prescribed. Please take all your antibiotics and please use your lidocaine for numbing as needed. Please follow-up with your primary care doctor, urologist, radiation oncologist for further evaluation and treatment. Coding Level of Care Code ED Transmission And Coordination Engineer for Steven Terrazas
[2023-08-04 09:58] LABS: Add Urine Microscopic? YES; Blood Urine 3+ (Negative); Glucose Urine UA Norm (Normal); Ketones Urine Negative (Negative); Leukocyte Esterase Urine Negative (Negative); Specific Gravity, Urine 1.015 (1.005-1.030); Urine Appearance Clear (CLEAR); Urine Color Dark Yellow (Yellow); pH Urine 6 (5-7)
[2023-08-04 10:01] LABS: Nitrate Urine Not Tested (Negative)
[2023-08-04 10:02] LABS: Bilirubin Urine Not Tested (Negative); Urobilinogen Urine Not Tested mg/dL (Negative)
[2023-08-04 10:03] LABS: RBC Urine 80-100 /hpf (0-2); WBC Urine 0-4 /hpf (0-5)
[2023-08-04 10:04] LABS: Add Urine Culture? Yes
[2023-08-04 10:12] LABS: Protein Urine Not Tested (Negative)
[2023-08-04 10:13] LABS: Sulfosalicylic Acid Urine Negative (Negative)
--- NOTE | 2023-08-04 10:46 | PC.PHAR ---
pt sts he does not take tamsulosin 0.4 anymore because it makes him dizzy
== END 2023-08-04 11:34 | disposition home or self-care (01) ==
PROVIDERS: Emergency Provider Emergency Medicine; PCP Family Medicine
DX: N34.2 Other urethritis (principal); N30.40 Irradiation cystitis without hematuria; Z87.891 Personal history of nicotine dependence; E78.5 Hyperlipidemia, unspecified; I10 Essential (primary) hypertension; I25.10 Atherosclerotic heart disease of native coronary artery without angina pectoris
CPT/HCPCS: 81001; 87086; 99283

== ENCOUNTER 2023-08-08 14:17 | Oncology outpatient (recurring) (ONCR) | payer MEDICARE, SELFPAY ==
--- NOTE | 2023-07-18 11:36 | ONCRAD TMN_ITS ---
Radiation Oncology Weekly Treatment Management Patient: Jett Perez MR#: [id number] : 1950> Attending Physician: Dr. Janeen Palma Date of Service: 07/18/2023 Fractions: 22 out of 28 Referring Physician(s) : Ady Frausto M.D. Diagnosis: C61 - Malignant neoplasm of prostate, Diagnosed 02/14/2023 (Active) Radiotherapy to date: Course: prostate/sv, Treatment Site: Prostate 70Gy, Ref. ID: [id number], Energy: 15X, Dose/Fx (cGy): 250, #Fx: , Dose Correction (cGy): 0, Total Dose Delivered (cGy): 5,500, Start Date: 06/19/2023, Elapsed Days: 29 Reason for visit: The patient is being seen today as part of their regularly scheduled weekly on treatment visits to assess for acute toxicities from radiotherapy. Review of Systems: Patient has had some worsening of his dysuria. He says it is tolerable. He does not feel like he has an infection. He is also had recurrence of his claudication. Is been about a year since he had surgery for this. Vital Signs: Performed on 07/18/2023 11:13 AM BMI - 29.741 kg/m2 (high), Height - 68 in, Weight - 195.6 lbs, Temperature - 97.4 f, Pulse - 58 /min (low), Respiration - 16 /min, O2 Sat - 98 %, Pain - 3, Fatigue - 5 and BP - 120/ 57 mm(hg)(/low). Physical Exam: No real changes on exam Imaging: Radiation therapy imaging related to accurate target localization (i.e. KV, MV and CBCT) was reviewed. Appropriate changes, if any, were made to ensure treatment accuracy. Plan: Will continue with his treatments as planned. I did ask him to go ahead and call his vascular surgeon and let them know that his claudication has returned. Signed by: Dr. Janeen Palma 07/18/2023 11:34:31 AM
--- NOTE | 2023-07-25 11:51 | ONCRAD TMN_ITS ---
Radiation Oncology Weekly Treatment Management Patient: Jett Perez MR#: [id number] : 1950 Attending Physician: Dr. Janeen Palma Date of Service: 07/25/2023 Fractions: 27 out of 28 Referring Physician(s) : Ady Frausto M.D. Diagnosis: C61 - Malignant neoplasm of prostate, Diagnosed 02/14/2023 (Active) Radiotherapy to date: Course: prostate/sv, Treatment Site: Prostate 70Gy, Ref. ID: [id number], Energy: 15X, Dose/Fx (cGy): 250, #Fx: 27 / 28, Dose Correction (cGy): 0, Total Dose Delivered (cGy): 6,750, Start Date: 06/19/2023, Elapsed Days: 36 Reason for visit: The patient is being seen today as part of their regularly scheduled weekly on treatment visits to assess for acute toxicities from radiotherapy. Review of Systems: He still having dysuria which has gone back to being as bad as it was initially. Vital Signs: Performed on 07/25/2023 11:26 AM BMI - 29.163 kg/m2 (high), Height - 68 in, Weight - 191.8 lbs, Temperature - 97.8 f, Pulse - 60 /min, Respiration - 16 /min, O2 Sat - 98 %, Pain - 6, Fatigue - 7 and BP - 128/ 66 mm(hg). Physical Exam: No changes noted Imaging: Radiation therapy imaging related to accurate target localization (i.e. KV, MV and CBCT) was reviewed. Appropriate changes, if any, were made to ensure treatment accuracy. Plan: He will be finished with his treatment tomorrow. Will have him return in a month with his PSA. I have asked him to give us a urine sample tomorrow so that we can make sure he did not have a bladder infection. Signed by: Dr. Janeen Palma 07/25/2023 11:50:16 AM
--- NOTE | 2023-07-26 12:25 | N.ONRD TS_ITS ---
Radiation Oncology Treatment Summary Patient: Jett Perez MR#: [id number] : 1950 Age: 72 Sex: Male Dictated by: Dr. Janeen Palma Date of Service: 07/26/2023 Referring Physician(s) : Ady Frausto M.D. Diagnosis: C61 - Malignant neoplasm of prostate, Diagnosed 02/14/2023 (Active) Radiotherapy to Date: Course: prostate/sv, Treatment Site: Prostate 70Gy, Ref. ID: [id number], Energy: 15X, Dose/Fx (cGy): 250, #Fx: 28 / 28, Dose Correction (cGy): 0, Total Dose Delivered (cGy): 7,000, Start Date: 06/19/2023, End Date: 07/26/2023, Elapsed Days: 37 Clinical Summary: The patient tolerated RT well. He experienced moderate dysuria. This initially responded to Azo. At the completion of his treatment we did order a UA to check his urine to make sure he did not have a bladder infection. Will see him back in a month with his PSA or he will call if any problems arise in the interim Plan: End of treatment today. Continue on the above medication until the skin reaction resolves. Follow up in one month. PSA is ordered for day before. Signed by: Dr. Janeen Palma>07/26/2023 12:24:04 PM <<Signature on File>>
--- NOTE | 2023-08-08 14:52 | ONCRAD EPV_ITS ---
Radiation Oncology Established Patient Visit Patient: Jett Perez [id number] : 1950 Age: 72 Sex: Male Dictated by: Dr. Janeen Palma Date of Service: 08/08/2023 Referring Physician(s) : Ady Frausto M.D. , Dr. Menchaca Diagnosis: C61 - Malignant neoplasm of prostate, Diagnosed 02/14/2023 (Active) Radiotherapy to Date: Course: prostate/sv, Treatment Site: Prostate 70Gy, Ref. ID: [id number] Energy: 15X, Dose/Fx (cGy): 250, #Fx: , Dose Correction (cGy): 0, Total Dose Delivered (cGy): 7,000, Start Date: 06/19/2023, End Date: 07/26/2023, Elapsed Days: 37 Current History: Patient completed his radiation treatments on 07/26/2023 for adenocarcinoma the prostate. He had had some changes in his urination with increased frequency and hesitancy during the course of his treatment. However 10 days after completing treatment his symptoms had actually continued to worsen. He was seen and a UA was checked on Monday of last week. At that time he was having such problems emptying his bladder he was having to bear down to empty his bladder. His urine from that encounter showed 3+ blood and 0-4 white blood cells. He had started taking the Azo which limited additional evaluation. Growth from that specimen was less than 5000 of mixed tata. This week he is continued to have the same symptoms. He was started on Cipro last week. He has not had any improvement. I asked him to come in today with the thought we would check his urine again and perhaps put a catheter in. He continues to have straining to urinate. He is also has some constipation. He has tried 800 mg ibuprofen without relief. He was on the Flomax without relief and he stopped this secondary to his blood pressure. We talked today about putting a catheter in and then having him visit with Dr. Menchaca and have his catheter removed at that time. He said at this point he does not want to have a catheter until he can be at all. Current Medications: Allergies: Current Complaints / Review of Systems: . Vital Signs: Performed on 08/08/2023 2:20 PM BMI - 28.981 kg/m2 (high), Height - 68 in, Weight - 190.6 lbs, Temperature - 98 f, Pulse - 60 /min, Respiration - 16 /min, O2 Sat - 98 %, Pain - 10, Fatigue - 8 and BP - 92/ 54 mm(hg)(/low). Physical Exam: General: Alert and oriented x 3. No acute distress. HEENT: Normocephalic, atraumatic. Extraocular Movements Intact: Pupils Equal, Round, Reactive to Light and Accommodation: Sclerae anicteric. NECK: Supple without supraclavicular or jugular lymphadenopathy. LUNGS: Respiratory rate regular nonlabored HEART: Regular rate and rhythm ABDOMEN: No palpable areas of tenderness EXTREMITIES: No peripheral edema is identified. NEUROLOGIC: Alert and orient x 3. Gait and speech within normal limits. Performance Status: 90 Lab: None pending. Pathology: Primary, c61 - malignant neoplasm of prostate, Diagnosed 02/14/2023 (active) . Imaging: See HPI Impression: Urinary retention 1 week after completing radiation. Plan: We did talk about putting a catheter in today. He declined. Will go ahead and check another UA today. I told him he may end up having prostatitis rather than actual bladder infection. Since he had no improvement after 72 hours on the current antibiotic we will switch him to an additional 1 for prostatitis. This point I have asked him to visit with Dr. Menchaca on for additional evaluation. Will make sure we get all of his records to Dr. Menchaca at that time. Signed by: 08/08/2023 2:50:42 PM <<Signature on File>> Time spent with patient:20 CPT Code: CPT Code:
[2023-08-08 16:07] LABS: Protein Urine 2+ (Negative); Urine Appearance SL Hazy (CLEAR); Urine Color Orange (Yellow); pH Urine 5 (5-7)
[2023-08-08 16:08] LABS: Blood Urine 3+ (Negative); Glucose Urine UA Norm (Normal); Ketones Urine Negative (Negative); Nitrate Urine Not Tested (Negative)
[2023-08-08 16:09] LABS: Add Urine Microscopic? YES; Bilirubin Urine Not Tested (Negative); Leukocyte Esterase Urine Negative (Negative); Urobilinogen Urine Not Tested mg/dL (Negative)
[2023-08-08 16:10] LABS: RBC Urine >100 /hpf (0-2)
[2023-08-08 16:11] LABS: Add Urine Culture? Yes; Mucus Urine 1+ /hpf; Oval Fat Bodies Urine 1+ /hpf
== END 2023-08-15 23:59 | disposition home or self-care (01) ==
PROVIDERS: PCP Family Medicine; Visit Provider Radiology Radiation Oncology
DX: C61 Malignant neoplasm of prostate (principal); C25.9 Malignant neoplasm of pancreas, unspecified; Z51.0 Encounter for antineoplastic radiation therapy; Z53.9 Procedure and treatment not carried out, unspecified reason
CPT/HCPCS: 77336; 77385; 81001; 87086; 99024

== ENCOUNTER → 2023-09-06 09:27 | Outpatient (BNVA) | payer MEDICARE, SELFPAY | PROVIDERS: PCP Family Medicine; Visit Provider Nurse Practitioner Family | DX: I25.10 Atherosclerotic heart disease of native coronary artery without angina pectoris (principal); I10 Essential (primary) hypertension; Z87.891 Personal history of nicotine dependence | CPT/HCPCS: 99214 ==

== ENCOUNTER 2023-10-05 08:30 | Oncology outpatient (recurring) (ONCR) | payer MEDICARE, SELFPAY ==
--- NOTE | 2023-09-19 12:15 | USCV_ITS ---
Jett Perez Age: 72 Gender: M : 1950 Exam Date: 09/19/2023 12:33 Ordering Phys: Avril Welch Technologist: ODALYS Exam Location: [facility] [place]_ Indication: EVAL FOR CAROTID STENOSIS Risk Factors: Previous Vascular Surgery: Right Brachial BP: / Left Brachial BP: / Right Left Velocity (cm/s) Spectral Plaque Velocity (cm/s) Spectral Plaque Syst/Diast Broadening Syst/Diast Broadening 82.00/ 19.90 Prox CCA / 23.30 98.40/ 23.50 Mid CCA 97.00 / 27.90 78.30/ 21.70 Distal CCA 112.40/ 34.10 55.20/ 16.20 Prox ICA 49.90 / 8.90 62.60/ 23.10 Mid ICA 80.20 / 25.60 43.10/ 16.80 Distal ICA 52.90 / 19.60 112.80 ECA 98.40 0.80 ICA/CCA 0.70 Vertebral 56.40/ 22.50 cm/s 43.60/ 11.90 cm/s Subclavian 213.5 106.9 0 0 FINDINGS Comparison:. 10/11/21 Mild progression of diffuse carotid plaque but velocities are not increasing. Antegrade vertebral arteries. CONCLUSIONS Bilateral ICA stenosis less than 50%. Mild progression of carotid plaque. Dr. Adilia Bagley DO (Electronically Signed) Final Date: 19 September 2023 16:02 S
--- NOTE | 2023-09-19 12:28 | XRR_ITS ---
PROCEDURE INFORMATION: Exam: XR Left Wrist Exam date and time: 09/19/2023 12:31 PM Age: 72 years old Clinical indication: Patient HX: Pain in the left wrist for the last 20+ years. ; Additional info: Left wrist pain after injury. TECHNIQUE: Imaging protocol: Radiologic exam of the left wrist. Views: 3 or more views. COMPARISON: No relevant prior studies available. FINDINGS: Bones/joints: No evidence of acute fracture. There is widening of the scapholunate interval to 6-7 mm suggesting full-thickness tear of the scapholunate ligament. Moderate thumb carpometacarpal and triscaphe osteoarthritis. Moderate radiocarpal osteoarthritis, particularly within the scaphoid fossa. There is a 3 mm degenerative intra-articular body in the radial aspect of the joint. Carpal bones are grossly intact. Soft tissues: Grossly unremarkable. XR/XR wrist LT w scaphoid [id number] IMPRESSION: 1. Scapholunate dissociation. Follow-up orthopedic evaluation is recommended. 2. No evidence of acute fracture.
[2023-10-05 08:34] LABS: Basophils % 0.5 %; Eosinophils # 0.2 10^3/uL (0.0-0.8); Eosinophils % 3.4 %; Hematocrit 36.3 % (37-53); Lymphocytes # 1.8 10^3/uL (0.8-4.8); Lymphocytes % 29.3 %; Mean Corpuscular HGB Conc 33.9 g/dL (30-55); Mean Corpuscular Hemoglobin 33.1 pg (27-33); Mean Corpuscular Volume 97.6 fl (82-101); Mean Platelet Volume 9.2 fL (7.4-10.4); Monocytes # 0.6 10^3/uL (0.2-0.9); Monocytes % 9.9 %; Neutrophils # 3.48 10^3/uL (1.8-7.7); Neutrophils % 56.4 %; Nucleated Red Blood Cells % 0 %; Platelet Count 189 10^3/cmm (157-399); Red Blood Count 3.72 10^6/uL (3.85-5.65); Red Cell Distribution Width 13.2 % (12.1-15.1); White Blood Count 6.17 10^3/uL (3.29-11.43)
[2023-10-05 09:00] LABS: Alanine Aminotransferase 20 U/L (0-41); Albumin Level 4.3 g/dL (3.5-5.2); Alkaline Phosphatase 93 U/L (40-130); Anion Gap 12.9 (5-19); Aspartate Amino Transferase 20 U/L (0-40); Blood Urea Nitrogen 17 mg/dL (8-23); Calcium 8.9 mg/dL (8.5-10.5); Carbon Dioxide 27 mmol/L (22-29); Chloride 108 mmol/L (98-107); Globulin 2.6 g/dL (1.3-4.6); Glomerular Filtration Rate 83.4 mL/min (90-130); Glucose 123 mg/dL (65-115); Osmolality Calculated 301 mOsm/kg (285-295); Potassium 3.9 mmol/L (3.5-5.1); Prostate Specific Antigen 0.643 ng/mL (0-4); Sodium 144 mmol/L (136-145); Total Bilirubin 0.6 mg/dL (0.15-1.2); Total Protein 6.9 g/dL (6.6-8.7)
[2023-10-05] MEDS: leuprolide 22.5 mg Kit IM (10:50)
[2023-10-05 11:04] LABS: Add Urine Microscopic? NO; Charge for UA Resulting for Rev
[2023-10-05 11:09] LABS: Bilirubin Urine Neg (Negative); Blood Urine Neg (Negative); Glucose Urine UA Norm (Normal); Ketones Urine Negative (Negative); Leukocyte Esterase Urine Negative (Negative); Nitrate Urine Negative (Negative); Protein Urine Neg (Negative); Urine Appearance Clear (CLEAR); Urine Color Yellow (Yellow); Urobilinogen Urine Norm (Negative); pH Urine 6 (5-7)
[2023-10-05 22:15] LABS: Testosterone Total 12.8 ng/dL (193-740)
== END 2023-10-15 23:59 | disposition home or self-care (01) ==
PROVIDERS: Nurse Practitioner Family; Absent Provider Family Medicine; PCP Family Medicine; Visit Provider Nurse Practitioner Family
DX: C61 Malignant neoplasm of prostate (principal); Z53.9 Procedure and treatment not carried out, unspecified reason; Z51.11 Encounter for antineoplastic chemotherapy; Z87.891 Personal history of nicotine dependence; Z79.818 Long term (current) use of other agents affecting estrogen receptors and estrogen levels; R30.0 Dysuria; R23.2 Flushing; Z79.899 Other long term (current) drug therapy
CPT/HCPCS: 36415; 73110; 80053; 80061; 81003; 83615; 84153; 84403; 84443; 85025; 93880; 96402; 99214; J9217

== ENCOUNTER 2023-12-28 12:56 | Oncology outpatient (recurring) (ONCR) | payer MEDICARE, SELFPAY ==
[2023-12-28 14:09] LABS: Basophils % 0.3 %; Eosinophils # 0.2 10^3/uL (0.0-0.8); Eosinophils % 2.6 %; Hematocrit 33.1 % (37-53); Lymphocytes # 1.2 10^3/uL (0.8-4.8); Lymphocytes % 19.7 %; Mean Corpuscular HGB Conc 33.8 g/dL (30-55); Mean Corpuscular Hemoglobin 33.4 pg (27-33); Mean Corpuscular Volume 98.8 fl (82-101); Mean Platelet Volume 9.3 fL (7.4-10.4); Monocytes # 0.5 10^3/uL (0.2-0.9); Monocytes % 8.4 %; Neutrophils # 4.01 10^3/uL (1.8-7.7); Neutrophils % 68.8 %; Nucleated Red Blood Cells % 0 %; Platelet Count 204 10^3/cmm (157-399); Red Blood Count 3.35 10^6/uL (3.85-5.65); Red Cell Distribution Width 13.5 % (12.1-15.1); White Blood Count 5.83 10^3/uL (3.29-11.43)
[2023-12-28 14:42] LABS: Alanine Aminotransferase 26 U/L (0-41); Albumin Level 4.2 g/dL (3.5-5.2); Alkaline Phosphatase 103 U/L (40-130); Anion Gap 13.5 (5-19); Aspartate Amino Transferase 21 U/L (0-40); Blood Urea Nitrogen 27 mg/dL (8-23); Calcium 9.1 mg/dL (8.5-10.5); Carbon Dioxide 27 mmol/L (22-29); Chloride 105 mmol/L (98-107); Globulin 2.6 g/dL (1.3-4.6); Glucose 114 mg/dL (65-115); Osmolality Calculated 298 mOsm/kg (285-295); Potassium 4.5 mmol/L (3.5-5.1); Prostate Specific Antigen 0.318 ng/mL (0-4); Sodium 141 mmol/L (136-145); Testosterone Total 4.3 ng/dL (193-740); Total Bilirubin 0.6 mg/dL (0.15-1.2); Total Protein 6.8 g/dL (6.6-8.7)
[2023-12-28] MEDS: leuprolide 22.5 mg Kit IM (14:57)
== END 2024-01-15 23:59 | disposition home or self-care (01) ==
PROVIDERS: Nurse Practitioner Family; Absent Provider Family Medicine; PCP Family Medicine; Visit Provider Nurse Practitioner Family
DX: C61 Malignant neoplasm of prostate (principal); Z51.0 Encounter for antineoplastic radiation therapy; Z53.9 Procedure and treatment not carried out, unspecified reason; I65.23 Occlusion and stenosis of bilateral carotid arteries; C25.9 Malignant neoplasm of pancreas, unspecified; N34.2 Other urethritis; Z92.3 Personal history of irradiation; K59.00 Constipation, unspecified; R30.0 Dysuria; I73.9 Peripheral vascular disease, unspecified; S63.095A Other dislocation of left wrist and hand, initial encounter; X58.XXXA Exposure to other specified factors, initial encounter
CPT/HCPCS: 36415; 80053; 84153; 84403; 85025; 96402; 99214; J9217

== ENCOUNTER → 2024-03-07 14:15 | Outpatient (BNVA) | payer MEDICARE, SELFPAY | PROVIDERS: PCP Family Medicine; Visit Provider Internal Medicine Cardiovascular Disease | DX: I25.10 Atherosclerotic heart disease of native coronary artery without angina pectoris (principal); E78.5 Hyperlipidemia, unspecified; I35.0 Nonrheumatic aortic (valve) stenosis; I10 Essential (primary) hypertension; I73.9 Peripheral vascular disease, unspecified; Z98.890 Other specified postprocedural states; Z87.891 Personal history of nicotine dependence | CPT/HCPCS: 80061; 80076; 99214 ==

== ENCOUNTER 2024-03-21 15:14 | Oncology outpatient (recurring) (ONCR) | payer MEDICARE, SELFPAY ==
[2024-03-21 16:15] LABS: Basophils % 0.3 %; Eosinophils # 0.2 10^3/uL (0.0-0.8); Eosinophils % 2.6 %; Hematocrit 34.4 % (37-53); Lymphocytes # 1.4 10^3/uL (0.8-4.8); Mean Corpuscular HGB Conc 34.9 g/dL (30-55); Mean Corpuscular Hemoglobin 34.3 pg (27-33); Mean Corpuscular Volume 98.3 fl (82-101); Mean Platelet Volume 9.3 fL (7.4-10.4); Monocytes # 0.6 10^3/uL (0.2-0.9); Monocytes % 10.6 %; Neutrophils # 3.71 10^3/uL (1.8-7.7); Neutrophils % 63.2 %; Nucleated Red Blood Cells % 0 %; Platelet Count 220 10^3/cmm (157-399); White Blood Count 5.87 10^3/uL (3.29-11.43)
[2024-03-21] MEDS: leuprolide 22.5 mg Kit IM (16:19)
[2024-03-21 16:44] LABS: Alanine Aminotransferase 25 U/L (0-41); Albumin Level 4.2 g/dL (3.5-5.2); Alkaline Phosphatase 108 U/L (40-130); Anion Gap 15.2 (5-19); Aspartate Amino Transferase 20 U/L (0-40); Blood Urea Nitrogen 24 mg/dL (8-23); Calcium 9.5 mg/dL (8.5-10.5); Carbon Dioxide 24 mmol/L (22-29); Chloride 108 mmol/L (98-107); Creatinine Clr Calc Pharmacy 73.2362; Globulin 2.6 g/dL (1.3-4.6); Glucose 104 mg/dL (65-115); Osmolality Calculated 300 mOsm/kg (285-295); Potassium 4.2 mmol/L (3.5-5.1); Prostate Specific Antigen 0.169 ng/mL (0-4); Sodium 143 mmol/L (136-145); Testosterone Total 10.4 ng/dL (193-740); Total Bilirubin 0.7 mg/dL (0.15-1.2); Total Protein 6.8 g/dL (6.6-8.7)
== END 2024-04-16 23:59 | disposition home or self-care (01) ==
PROVIDERS: Nurse Practitioner Family; Absent Provider Family Medicine; PCP Family Medicine; Visit Provider Nurse Practitioner Family
DX: Z53.9 Procedure and treatment not carried out, unspecified reason; Z51.11 Encounter for antineoplastic chemotherapy; C61 Malignant neoplasm of prostate; Z92.3 Personal history of irradiation
CPT/HCPCS: 36415; 80053; 84153; 84403; 85025; 96402; 99213; J9217

== ENCOUNTER 2024-05-01 06:53 | Oncology outpatient (recurring) (ONCR) | payer MEDICARE, SELFPAY ==
--- NOTE | 2024-05-01 07:00 | USCV_ITS ---
Jett Perez Age: 73 Gender: M : 1950 Exam Date: 05/01/2024 07:07 Ordering Phys: Tammi Pruitt MD ([email or web address]) Technologist: Exam Location: [facility] [place]: as BP: 120 / 70 HR: 71 Rhythm: Sinus Technical Quality: Adequate MEASUREMENTS (Male / Female) Normal Values 2D ECHO LV Diastolic Diameter PLAX 3.6 cm 4.2 - 5.9 / 3.9 - 5.3 cm IVS Diastolic Thickness 1.2 cm 0.6 - 1.0 / 0.6 - 0.9 cm IVS Systolic Thickness 1.7 cm LVPW Diastolic Thickness 1.3 cm 0.6 - 1.0 / 0.6 - 0.9 cm LVPW Systolic Thickness 2.0 cm LVOT Diameter 2.0 cm LV Ejection Fraction 2D Teich 61.6 % LV Ejection Fraction MOD 4C 77.1 % LV Ejection Fraction MOD 2C 77.3 % LV Ejection Fraction 2C AL 76.9 % LA Diameter 3.8 cm RA Systolic Volume 4C AL 29.6 ml RA Systolic Volume 4C MOD 29.6 ml Aorta at Sinotubular Diameter 2.8 cm IVC Diameter 1.6 cm M-MODE LA Ao Ratio MM 1.1 AV Cusp Separation MM 2.2 cm DOPPLER AV Peak Velocity 243.0 cm/s LVOT Peak Velocity 120.0 cm/s AV Area Cont Eq vti 1.7 cm squared AV Area Cont Eq pk 1.6 cm squared MV Peak Velocity 92.0 cm/s MV Area PHT 4.5 cm squared Mitral E to A Ratio 0.8 TR Peak Velocity 219.0 cm/s TR Peak Gradient 19.2 mmHg TV Peak E Velocity 92.0 cm/s FINDINGS Left Ventricle Normal left ventricular size and systolic function, EF 77%. Mild concentric left ventricular hypertrophy. No regional wall motion abnormalities. Grade I/IV diastolic dysfunction (abnormal relaxation filling pattern), normal to mildly elevated filling pressures. Right Ventricle The right ventricle is normal in size and function. Right Atrium The right atrium is normal in size. Left Atrium Mildly increased left atrial size. Mitral Valve No gross abnormalities noted Aortic Valve Mild aortic valve stenosis, mean gradient 9.1 mmHg, ALAN 1.7 cm squared. Peak velocity of 2.64 m/s with a peak gradient of 28 and a mean gradient of 10 mmHg Tricuspid Valve Trace to mild tricuspid valve regurgitation. Estimated pulmonary artery peak systolic pressure 19 mmHg. Pulmonic Valve No gross abnormalities noted Pericardium Normal pericardium without effusion. Aorta Normal ascending aorta dimension. IVC Normal inferior vena cava. CONCLUSIONS Normal left ventricular size and systolic function, EF 77%. Mild concentric left ventricular hypertrophy. No regional wall motion abnormalities. Grade I/IV diastolic dysfunction (abnormal relaxation filling pattern), normal to mildly elevated filling pressures. Mildly increased left atrial size. Mild aortic valve stenosis, mean gradient 9.1 mmHg, ALAN 1.7 cm squared. Peak velocity of 2.64 m/s with a peak gradient of 28 and a mean gradient of 10 mmHg. Trace to mild tricuspid valve regurgitation. Estimated pulmonary artery peak systolic pressure 19 mmHg. There is no pericardial effusion. There are no intracardiac masses. Compared to the study from 02/14/2018, there is development of the aortic valve stenosis Dr Tammi Pruitt MD FAC (Electronically Signed) Final Date: 01 May 2024 23:06 S
== END 2024-05-17 23:59 | disposition home or self-care (01) ==
LOC: RAD 07:00 → ONCMED 10:15
PROVIDERS: Absent Provider Family Medicine; PCP Family Medicine; Visit Provider Internal Medicine Cardiovascular Disease
DX: Z53.9 Procedure and treatment not carried out, unspecified reason (principal); Z51.11 Encounter for antineoplastic chemotherapy; C61 Malignant neoplasm of prostate; Z92.3 Personal history of irradiation; Z51.0 Encounter for antineoplastic radiation therapy; I65.23 Occlusion and stenosis of bilateral carotid arteries; C25.9 Malignant neoplasm of pancreas, unspecified; N34.2 Other urethritis; K59.00 Constipation, unspecified; R30.0 Dysuria; I73.9 Peripheral vascular disease, unspecified; S63.095A Other dislocation of left wrist and hand, initial encounter; X58.XXXA Exposure to other specified factors, initial encounter; M25.532 Pain in left wrist; I35.0 Nonrheumatic aortic (valve) stenosis
CPT/HCPCS: 93306

== ENCOUNTER 2024-06-13 13:58 | Oncology outpatient (recurring) (ONCR) | payer MEDICARE, SELFPAY ==
[2024-06-13 14:45] LABS: Basophils % 0.4 %; Eosinophils # 0.2 10^3/uL (0.0-0.8); Eosinophils % 3.6 %; Hematocrit 31.2 % (37-53); Lymphocytes # 1.3 10^3/uL (0.8-4.8); Mean Corpuscular HGB Conc 33.3 g/dL (30-55); Mean Corpuscular Hemoglobin 32.3 pg (27-33); Mean Corpuscular Volume 96.9 fl (82-101); Mean Platelet Volume 9.2 fL (7.4-10.4); Monocytes # 0.5 10^3/uL (0.2-0.9); Monocytes % 9.1 %; Neutrophils # 3.12 10^3/uL (1.8-7.7); Neutrophils % 61.7 %; Nucleated Red Blood Cells % 0 %; Platelet Count 199 10^3/cmm (157-399); Red Blood Count 3.22 10^6/uL (3.85-5.65); Red Cell Distribution Width 13.2 % (12.1-15.1); White Blood Count 5.05 10^3/uL (3.29-11.43)
[2024-06-13 15:17] LABS: Alanine Aminotransferase 18 U/L (0-41); Albumin Level 3.8 g/dL (3.5-5.2); Alkaline Phosphatase 96 U/L (40-130); Anion Gap 14.8 (5-19); Aspartate Amino Transferase 16 U/L (0-40); Blood Urea Nitrogen 19 mg/dL (8-23); Calcium 9.2 mg/dL (8.5-10.5); Carbon Dioxide 24 mmol/L (22-29); Chloride 104 mmol/L (98-107); Creatinine Clr Calc Pharmacy 80.4076; Globulin 2.9 g/dL (1.3-4.6); Glucose 143 mg/dL (65-115); Osmolality Calculated 293 mOsm/kg (285-295); Potassium 3.8 mmol/L (3.5-5.1); Prostate Specific Antigen 0.088 ng/mL (0-4); Sodium 139 mmol/L (136-145); Total Bilirubin 0.5 mg/dL (0.15-1.2); Total Protein 6.7 g/dL (6.6-8.7)
[2024-06-13] MEDS: leuprolide 22.5 mg Kit IM (15:44)
== END 2024-06-14 23:59 | disposition home or self-care (01) ==
PROVIDERS: Nurse Practitioner Family; Absent Provider Family Medicine; PCP Family Medicine; Visit Provider Internal Medicine Cardiovascular Disease
DX: Z51.11 Encounter for antineoplastic chemotherapy (principal); C61 Malignant neoplasm of prostate; D64.9 Anemia, unspecified; Z79.818 Long term (current) use of other agents affecting estrogen receptors and estrogen levels; Z87.891 Personal history of nicotine dependence; Z92.3 Personal history of irradiation
CPT/HCPCS: 80053; 84153; 85025; 96402; 99213; J9217

== ENCOUNTER 2024-08-02 11:55 | Outpatient (RCR) | payer MEDICARE, SELFPAY | END 2024-08-14 23:59 | disposition home or self-care (01) | LOC: SOT 11:55 | PROVIDERS: Visit Provider Orthopaedic Surgery | DX: Z47.89 Encounter for other orthopedic aftercare (principal) | CPT/HCPCS: 97022; 97110; 97140; 97167 ==

== ENCOUNTER 2024-08-15 05:00 | Outpatient (RCR) | payer MEDICARE, SELFPAY | END 2024-09-14 23:59 | disposition home or self-care (01) | LOC: SOT 05:00 | PROVIDERS: Visit Provider Orthopaedic Surgery | DX: Z47.89 Encounter for other orthopedic aftercare (principal) | CPT/HCPCS: 97022; 97110; 97140 ==

== ENCOUNTER 2024-09-12 12:46 | Oncology outpatient (recurring) (ONCR) | payer MEDICARE, SELFPAY ==
--- NOTE | 2024-09-12 13:45 | PC.NURSE ---
Please forward blood lab results to Dr. Menchaca in [place], [place] via patient request.
[2024-09-12 13:59] LABS: Reticulocyte % 2.3 % (0.5-2.0)
[2024-09-12 14:00] LABS: Basophils % 0.4 %; Eosinophils # 0.1 10^3/uL (0.0-0.8); Eosinophils % 1.3 %; Hematocrit 37.9 % (37-53); Lymphocytes % 41.5 %; Mean Corpuscular HGB Conc 33.5 g/dL (30-55); Mean Corpuscular Hemoglobin 32.2 pg (27-33); Mean Corpuscular Volume 95.9 fl (82-101); Mean Platelet Volume 9.1 fL (7.4-10.4); Monocytes # 0.5 10^3/uL (0.2-0.9); Monocytes % 10.3 %; Neutrophils # 2.19 10^3/uL (1.8-7.7); Neutrophils % 45.9 %; Nucleated Red Blood Cells % 0 %; Platelet Count 200 10^3/cmm (157-399); Red Blood Count 3.95 10^6/uL (3.85-5.65); Red Cell Distribution Width 13.7 % (12.1-15.1); White Blood Count 4.77 10^3/uL (3.29-11.43)
[2024-09-12 14:33] LABS: Alanine Aminotransferase 35 U/L (0-41); Albumin Level 4.1 g/dL (3.5-5.2); Alkaline Phosphatase 142 U/L (40-130); Aspartate Amino Transferase 23 U/L (0-40); Blood Urea Nitrogen 13 mg/dL (8-23); Calcium 9.6 mg/dL (8.5-10.5); Carbon Dioxide 24 mmol/L (22-29); Chloride 103 mmol/L (98-107); Creatinine Clr Calc Pharmacy 80.6005; Glucose 101 mg/dL (65-115); Osmolality Calculated 290 mOsm/kg (285-295); Sodium 140 mmol/L (136-145); Testosterone Total 15.9 ng/dL (193-740); Total Bilirubin 0.6 mg/dL (0.15-1.2); Total Protein 7.1 g/dL (6.6-8.7)
[2024-09-12 15:01] LABS: Ferritin 157 ng/mL (30-400); Iron 82 ug/dL (59-158); Percent Saturation 27.5 % (20-50); Total Iron Binding Capacity 298 mcg/dl; Unsaturated Iron Binding 216 ug/dL (112-347)
[2024-09-12 15:04] LABS: Anion Gap 17.2 (5-19); Potassium 4.2 mmol/L (3.5-5.1)
[2024-09-12 15:05] LABS: Lactate Dehydrogenase 247 U/L (135-225)
[2024-09-12 15:16] LABS: Vitamin B12 492 pg/mL (232-1245)
[2024-09-12] MEDS: leuprolide 22.5 mg Kit IM (15:26)
== END 2024-09-14 23:59 | disposition home or self-care (01) ==
PROVIDERS: Absent Provider Family Medicine; PCP Family Medicine; Visit Provider Internal Medicine
DX: Z51.11 Encounter for antineoplastic chemotherapy (principal); C61 Malignant neoplasm of prostate; Z79.818 Long term (current) use of other agents affecting estrogen receptors and estrogen levels; Z92.3 Personal history of irradiation; D64.9 Anemia, unspecified
CPT/HCPCS: 36415; 80053; 82607; 82728; 82746; 83010; 83540; 83550; 83615; 84153; 84403; 85025; 85045; 96402; 99214; J9217

== ENCOUNTER 2024-09-15 05:00 | Outpatient (RCR) | payer MEDICARE, SELFPAY | END 2024-10-14 23:59 | disposition home or self-care (01) | LOC: SOT 05:00 | PROVIDERS: PCP Family Medicine; Visit Provider Orthopaedic Surgery | DX: Z47.89 Encounter for other orthopedic aftercare (principal) | CPT/HCPCS: 97022; 97110; 97140; G0283 ==

== ENCOUNTER 2024-10-15 05:00 | Outpatient (RCR) | payer MEDICARE, SELFPAY | END 2024-11-14 23:59 | disposition home or self-care (01) | LOC: SOT 05:00 | PROVIDERS: PCP Family Medicine; Visit Provider Orthopaedic Surgery | DX: M18.12 Unilateral primary osteoarthritis of first carpometacarpal joint, left hand (principal); Z98.890 Other specified postprocedural states | CPT/HCPCS: 97022; 97110; 97140; G0283 ==

== ENCOUNTER 2024-11-15 05:00 | Outpatient (RCR) | payer MEDICARE, SELFPAY | END 2024-12-15 23:59 | disposition home or self-care (01) | LOC: SOT 05:00 | PROVIDERS: PCP Family Medicine; Visit Provider Orthopaedic Surgery | DX: Z47.89 Encounter for other orthopedic aftercare (principal) | CPT/HCPCS: 97022; 97110; 97140 ==

== ENCOUNTER 2024-12-05 13:21 | Oncology outpatient (recurring) (ONCR) | payer MEDICARE, SELFPAY ==
[2024-12-05 14:12] LABS: Hematocrit 34.4 % (37-53); Hemoglobin 11.70 g/dL (11.27-16.99); Mean Corpuscular HGB Conc 34.0 g/dL (30-55); Mean Corpuscular Hemoglobin 32.0 pg (27-33); Mean Corpuscular Volume 94.0 fl (82-101); Nucleated Red Blood Cells % 0 %; Platelet Count 161 10^3/cmm (157-399); Red Blood Count 3.66 10^6/uL (3.85-5.65); White Blood Count 4.80 10^3/uL (3.29-11.43)
[2024-12-05 14:35] LABS: Alanine Aminotransferase 24 U/L (0-41); Albumin Level 4.3 g/dL (3.5-5.2); Alkaline Phosphatase 133 U/L (40-130); Anion Gap 16.2 (5-19); Aspartate Amino Transferase 19 U/L (0-40); Blood Urea Nitrogen 24 mg/dL (8-23); Calcium 9.1 mg/dL (8.5-10.5); Carbon Dioxide 22 mmol/L (22-29); Chloride 105 mmol/L (98-107); Creatinine Clr Calc Pharmacy 90.4324; Globulin 2.7 g/dL (1.3-4.6); Glucose 128 mg/dL (65-115); Osmolality Calculated 294 mOsm/kg (285-295); Potassium 4.2 mmol/L (3.5-5.1); Prostate Specific Antigen 0.036 ng/mL (0-4); Sodium 139 mmol/L (136-145); Total Protein 7.0 g/dL (6.6-8.7)
[2024-12-05] MEDS: leuprolide 22.5 mg Kit IM (14:52)
== END 2024-12-15 23:59 | disposition home or self-care (01) ==
PROVIDERS: Nurse Practitioner; Absent Provider Family Medicine; PCP Family Medicine; Visit Provider Internal Medicine
DX: Z51.11 Encounter for antineoplastic chemotherapy (principal); C61 Malignant neoplasm of prostate; D64.9 Anemia, unspecified; Z92.3 Personal history of irradiation; Z79.818 Long term (current) use of other agents affecting estrogen receptors and estrogen levels; Z87.891 Personal history of nicotine dependence; Z79.899 Other long term (current) drug therapy
CPT/HCPCS: 36415; 80053; 84153; 84403; 85025; 96402; 99213; J9217

== ENCOUNTER 2025-02-27 10:30 | Oncology outpatient (recurring) (ONCR) | payer MEDICARE, SELFPAY ==
[2025-02-27 10:43] LABS: Hematocrit 34.1 % (37-53); Hemoglobin 11.80 g/dL (11.27-16.99); Mean Corpuscular HGB Conc 34.6 g/dL (30-55); Mean Corpuscular Hemoglobin 32.8 pg (27-33); Mean Corpuscular Volume 94.7 fl (82-101); Nucleated Red Blood Cells % 0 %; Platelet Count 161 10^3/cmm (157-399); Red Blood Count 3.60 10^6/uL (3.85-5.65); White Blood Count 4.00 10^3/uL (3.29-11.43)
[2025-02-27 11:22] LABS: Alanine Aminotransferase 28 U/L (0-41); Albumin Level 4.3 g/dL (3.5-5.2); Alkaline Phosphatase 112 U/L (40-130); Anion Gap 15.1 (5-19); Aspartate Amino Transferase 22 U/L (0-40); Blood Urea Nitrogen 18 mg/dL (8-23); Calcium 8.9 mg/dL (8.5-10.5); Carbon Dioxide 24 mmol/L (22-29); Chloride 108 mmol/L (98-107); Globulin 2.4 g/dL (1.3-4.6); Glucose 169 mg/dL (65-115); Osmolality Calculated 302 mOsm/kg (285-295); Potassium 4.1 mmol/L (3.5-5.1); Prostate Specific Antigen 0.024 ng/mL (0-4); Sodium 143 mmol/L (136-145); Total Protein 6.7 g/dL (6.6-8.7)
[2025-02-27] MEDS: leuprolide 22.5 mg Kit IM (12:00)
== END 2025-03-16 23:59 | disposition home or self-care (01) ==
PROVIDERS: PCP Family Medicine; Visit Provider Internal Medicine
DX: Z51.11 Encounter for antineoplastic chemotherapy (principal); C61 Malignant neoplasm of prostate; D64.9 Anemia, unspecified; Z92.3 Personal history of irradiation; Z79.818 Long term (current) use of other agents affecting estrogen receptors and estrogen levels; Z87.891 Personal history of nicotine dependence; Z79.899 Other long term (current) drug therapy
CPT/HCPCS: 36415; 80053; 84153; 84403; 85025; 96402; 99213; J9217